=== PATIENT | female | born 1970 | race American Indian/Alaskan Native ===

== ENCOUNTER 2019-04-06 18:41 | Inpatient (IN) | payer BC ==
[2019-04-06] MEDS ORDERED: NACL 0.9% 1000 ML 1,000 ML IV ONE (19:36)
--- NOTE | 2019-04-06 19:37 | Emergency Department Report ---
ED Altered Mental Status HPI - General Stated Complaint: CONFUSION Time Seen by Provider: 04/06/19 19:33 Source: patient, EMS Mode of arrival: Stretcher Limitations: Altered Mental Status - History of Present Illness Initial Comments: Patient is a 48-year-old female presents to emergency room for altered mental status and confusion. Patient is a note 3 but is hyperverbal and tangential. Patient states she fell and hit her head today. Report received from EMS and facility and report states that the patient has been confused for 5 days and is worsening. Patient fell hit her head has not been evaluated for this fall yet. Patient denies any symptoms or confusion. With every question the patient is tangential - Related Data Allergies Allergy/AdvReac Type Severity Reaction Status Date / Time acetaminophen [From Percocet] Allergy Unknown Verified 04/06/19 19:51 oxycodone [From Percocet] Allergy Unknown Verified 04/06/19 19:51 ED Review of Systems ROS: Stated complaint: CONFUSION Other details as noted in HPI Constitutional: denies: chills, fever Eyes: denies: eye pain, eye discharge, vision change ENT: denies: ear pain, throat pain Respiratory: denies: cough, shortness of breath, wheezing Cardiovascular: denies: chest pain, palpitations Endocrine: no symptoms reported Gastrointestinal: denies: abdominal pain, nausea, diarrhea Genitourinary: denies: urgency, dysuria, discharge Musculoskeletal: denies: back pain, joint swelling, arthralgia Skin: denies: rash, lesions Neurological: denies: headache, weakness, paresthesias Psychiatric: denies: anxiety, depression Hematological/Lymphatic: denies: easy bleeding, easy bruising ED Past Medical Hx - Past Medical History Previous Medical History?: Yes Hx Hypertension: Yes Hx Congestive Heart Failure: Yes Hx Renal Disease: Yes Additional medical history: Both palsy, pancytopenia, lupus, A. fib - Surgical History Past Surgical History?: No - Family History Family history: no significant - Social History Smoking Status: Never Smoker Substance Use Type: None ED Physical Exam - General Limitations: Altered Mental Status General appearance: alert, in no apparent distress - Head Head exam: Present: atraumatic, normocephalic - Eye Eye exam: Present: normal appearance - ENT ENT exam: Present: mucous membranes moist - Neck Neck exam: Present: normal inspection - Respiratory Respiratory exam: Present: normal lung sounds bilaterally. Absent: respiratory distress - Cardiovascular Cardiovascular Exam: Present: regular rate, normal rhythm. Absent: systolic m urmur, diastolic murmur, rubs, gallop - GI/Abdominal GI/Abdominal exam: Present: soft, normal bowel sounds - Extremities Exam Extremities exam: Present: normal inspection - Back Exam Back exam: Present: normal inspection - Neurological Exam Neurological exam: Present: alert, oriented X3 - Expanded Psychiatric Exam Expanded Focused psych exam: Present: internal stimuli, delusional, restlessness, flight of ideas, loose associations - Skin Skin exam: Present: warm, dry, intact, normal color. Absent: rash - Assessment Assessment Interval: Baseline - Level of Consciousness 1a. Level of Consciousness: alert/keenly responsive - LOC Questions 1b. LOC Questions: answers both correctly - LOC Command 1c. LOC Commands: performs tasks correctly - Best Gaze 2. Best Gaze: normal - Visual 3. Visual: no visual loss - Facial Palsy 4. Facial Palsy: normal symmetrical movement - Motor Arm 5a. Motor Arm Left: no drift 5b. Motor Arm Right: no drift - Motor Leg 6a. Motor Leg Left: no drift 6b. Motor Leg Right: no drift - Limb Ataxia 7. Limb Ataxia: absent - Sensory 8. Sensory: normal - Best Language 9. Best Language: no aphasia - Dysarthria 10. Dysarthria: normal - Extinction and Inattention 11. Extinction/Inattention: no abnormality - Scoring Total Score: 0 Stroke Severity: No Stroke Symptoms ED Course Vital Signs 04/06/19 04/06/19 04/06/19 19:28 19:35 20:00 Temperature 98.9 F Pulse Rate 83 88 Respiratory 14 19 Rate Blood Pressure 182/89 182/89 O2 Sat by Pulse 100 100 100 Oximetry 04/06/19 04/06/19 21:18 21:38 Temperature Pulse Rate 81 Respiratory 15 16 Rate Blood Pressure 177/87 O2 Sat by Pulse 100 100 Oximetry - Reevaluation(s) Reevaluation #1: Discussed all results with patient. Patient is placed on a 1013 for acute psychosis. Patient is medically cleared but will remain in the ER on a 1013 until cleared by psychiatry. Patient will be seen by mental health and psychiatry.. Patient agrees to plan of care. Family is at bedside and states the patient has not been to bed for 2 days due to her constantly talking and nonstop stories. 04/06/19 23:56 - Lab Data Result diagrams: 04/06/19 20:05 04/06/19 20:05 Lab Results 04/06/19 04/06/19 04/06/19 Range/Units 20:04 20:05 20:05 WBC 5.3 (4.5-11.0) K/mm3 RBC 3.05 L (3.65-5.03) M/mm3 Hgb 9.8 L (10.1-14.3) gm/dl Hct 31.6 (30.3-42.9) % MCV 104 H (79-97) fl MCH 32 (28-32) pg MCHC 31 (30-34) % RDW 24.7 H (13.2-15.2) % Plt Count 300 (140-440) K/mm3 Lymph % (Auto) 5.7 L (13.4-35.0) % [place]rie % (Auto) 3.4 (0.0-7.3) % Eos % (Auto) 0.0 (0.0-4.3) % Baso % (Auto) 0.9 (0.0-1.8) % Lymph # 0.3 L (1.2-5.4) K/mm3 [place]rie # 0.2 (0.0-0.8) K/mm3 Eos # 0.0 (0.0-0.4) K/mm3 Baso # 0.0 (0.0-0.1) K/mm3 Seg Neutrophils % 90.0 H (40.0-70.0) % Seg Neutrophils # 4.7 (1.8-7.7) K/mm3 Sodium 141 (137-145) mmol/L Potassium 4.2 (3.6-5.0) mmol/L Chloride 97.9 L (98-107) mmol/L Carbon Dioxide 29 (22-30) mmol/L Anion Gap 18 mmol/L BUN 13 (7-17) mg/dL Creatinine 0.8 (0.7-1.2) mg/dL Estimated GFR > 60 ml/min BUN/Creatinine Ratio 16 % Glucose 161 H (65-100) mg/dL Lactic Acid (0.7-2.0) mmol/L Calcium 9.2 (8.4-10.2) mg/dL Total Bilirubin 0.20 (0.1-1.2) mg/dL AST 22 (5-40) units/L ALT 28 (7-56) units/L Alkaline Phosphatase 106 (35-129) units/L Ammonia (25-60) umol/L Total Creatine Kinase 19 L (30-135) units/L Troponin T < 0.010 (0.00-0.029) ng/mL Total Protein 7.0 (6.3-8.2) g/dL Albumin 3.6 L (3.9-5) g/dL Albumin/Globulin Ratio 1.1 % Urine Color (Yellow) Urine Turbidity (Clear) Urine pH (5.0-7.0) Ur Specific [place] (1.003-1.030) Urine Protein (Negative) mg/dL Urine Glucose (UA) (Negative) mg/dL Urine Ketones (Negative) mg/dL Urine Blood (Negative) Urine Nitrite (Negative) Urine Bilirubin (Negative) Urine Urobilinogen (<2.0) mg/dL Ur Leukocyte Esterase (Negative) Urine WBC (Auto) (0.0-6.0) /HPF Urine RBC (Auto) (0.0-6.0) /HPF U Epithel Cells (Auto) (0-13.0) /HPF Hyaline Casts /LPF Salicylates < 0.3 L (2.8-20.0) mg/dL Urine Opiates Screen Urine Methadone Screen Acetaminophen (10.0-30.0) ug/mL Ur Barbiturates Screen Ur Phencyclidine Scrn Ur Amphetamines Screen U Benzodiazepines Scrn Urine Cocaine Screen U Marijuana (THC) Screen Drugs of Abuse Note Plasma/Serum Alcohol (0-0.07) % 04/06/19 04/06/19 04/06/19 Range/Units 20:05 20:05 20:05 WBC (4.5-11.0) K/mm3 RBC (3.65-5.03) M/mm3 Hgb (10.1-14.3) gm/dl Hct (30.3-42.9) % MCV (79-97) fl MCH (28-32) pg MCHC (30-34) % RDW (13.2-15.2) % Plt Count (140-440) K/mm3 Lymph % (Auto) (13.4-35.0) % [place]uthrie % (Auto) (0.0-7.3) % Eos % (Auto) (0.0-4.3) % Baso % (Auto) (0.0-1.8) % Lymph # (1.2-5.4) K/mm3 [place]rie # (0.0-0.8) K/mm3 Eos # (0.0-0.4) K/mm3 Baso # (0.0-0.1) K/mm3 Seg Neutrophils % (40.0-70.0) % Seg Neutrophils # (1.8-7.7) K/mm3 Sodium (137-145) mmol/L Potassium (3.6-5.0) mmol/L Chloride (98-107) mmol/L Carbon Dioxide (22-30) mmol/L Anion Gap mmol/L BUN (7-17) mg/dL Creatinine (0.7-1.2) mg/dL Estimated GFR ml/min BUN/Creatinine Ratio % Glucose (65-100) mg/dL Lactic Acid 2.80 H* (0.7-2.0) mmol/L Calcium (8.4-10.2) mg/dL Total Bilirubin (0.1-1.2) mg/dL AST (5-40) units/L ALT (7-56) units/L Alkaline Phosphatase (35-129) units/L Ammonia 29.0 (25-60) umol/L Total Creatine Kinase (30-135) units/L Troponin T (0.00-0.029) ng/mL Total Protein (6.3-8.2) g/dL Albumin (3.9-5) g/dL Albumin/Globulin Ratio % Urine Color (Yellow) Urine Turbidity (Clear) Urine pH (5.0-7.0) Ur Specific [place] (1.003-1.030) Urine Protein (Negative) mg/dL Urine Glucose (UA) (Negative) mg/dL Urine Ketones (Negative) mg/dL Urine Blood (Negative) Urine Nitrite (Negative) Urine Bilirubin (Negative) Urine Urobilinogen (<2.0) mg/dL Ur Leukocyte Esterase (Negative) Urine WBC (Auto) (0.0-6.0) /HPF Urine RBC (Auto) (0.0-6.0) /HPF U Epithel Cells (Auto) (0-13.0) /HPF Hyaline Casts /LPF Salicylates (2.8-20.0) mg/dL Urine Opiates Screen Urine Methadone Screen Acetaminophen < 5.0 L (10.0-30.0) ug/mL Ur Barbiturates Screen Ur Phencyclidine Scrn Ur Amphetamines Screen U Benzodiazepines Scrn Urine Cocaine Screen U Marijuana (THC) Screen Drugs of Abuse Note Plasma/Serum Alcohol (0-0.07) % 04/06/19 04/06/19 04/06/19 Range/Units 20:05 22:40 22:40 WBC (4.5-11.0) K/mm3 RBC (3.65-5.03) M/mm3 Hgb (10.1-14.3) gm/dl Hct (30.3-42.9) % MCV (79-97) fl MCH (28-32) pg MCHC (30-34) % RDW (13.2-15.2) % Plt Count (140-440) K/mm3 Lymph % (Auto) (13.4-35.0) % [place]uthrie % (Auto) (0.0-7.3) % Eos % (Auto) (0.0-4.3) % Baso % (Auto) (0.0-1.8) % Lymph # (1.2-5.4) K/mm3 [place] # (0.0-0.8) K/mm3 Eos # (0.0-0.4) K/mm3 Baso # (0.0-0.1) K/mm3 Seg Neutrophils % (40.0-70.0) % Seg Neutrophils # (1.8-7.7) K/mm3 Sodium (137-145) mmol/L Potassium (3.6-5.0) mmol/L Chloride (98-107) mmol/L Carbon Dioxide (22-30) mmol/L Anion Gap mmol/L BUN (7-17) mg/dL Creatinine (0.7-1.2) mg/dL Estimated GFR ml/min BUN/Creatinine Ratio % Glucose (65-100) mg/dL Lactic Acid (0.7-2.0) mmol/L Calcium (8.4-10.2) mg/dL Total Bilirubin (0.1-1.2) mg/dL AST (5-40) units/L ALT (7-56) units/L Alkaline Phosphatase (35-129) units/L Ammonia (25-60) umol/L Total Creatine Kinase (30-135) units/L Troponin T (0.00-0.029) ng/mL Total Protein (6.3-8.2) g/dL Albumin (3.9-5) g/dL Albumin/Globulin Ratio % Urine Color Yellow (Yellow) Urine Turbidity Clear (Clear) Urine pH 8.0 H (5.0-7.0) Ur Specific [place] 1.011 (1.003-1.030) Urine Protein <15 mg/dl (Negative) mg/dL Urine Glucose (UA) 50 (Negative) mg/dL Urine Ketones Neg (Negative) mg/dL Urine Blood Neg (Negative) Urine Nitrite Neg (Negative) Urine Bilirubin Neg (Negative) Urine Urobilinogen < 2.0 (<2.0) mg/dL Ur Leukocyte Esterase Neg (Negative) Urine WBC (Auto) 1.0 (0.0-6.0) /HPF Urine RBC (Auto) 2.0 (0.0-6.0) /HPF U Epithel Cells (Auto) < 1.0 (0-13.0) /HPF Hyaline Casts 1 /LPF Salicylates (2.8-20.0) mg/dL Urine Opiates Screen Presumptive negative Urine Methadone Screen Presumptive negative Acetaminophen (10.0-30.0) ug/mL Ur Barbiturates Screen Presumptive negative Ur Phencyclidine Scrn Presumptive negative Ur Amphetamines Screen Presumptive negative U Benzodiazepines Scrn Presumptive negative Urine Cocaine Screen Presumptive negative U Marijuana (THC) Screen Presumptive negative Drugs of Abuse Note Disclamer Plasma/Serum Alcohol < 0.01 (0-0.07) % 04/06/19 Range/Units 22:40 WBC (4.5-11.0) K/mm3 RBC (3.65-5.03) M/mm3 Hgb (10.1-14.3) gm/dl Hct (30.3-42.9) % MCV (79-97) fl MCH (28-32) pg MCHC (30-34) % RDW (13.2-15.2) % Plt Count (140-440) K/mm3 Lymph % (Auto) (13.4-35.0) % [place]rie % (Auto) (0.0-7.3) % Eos % (Auto) (0.0-4.3) % Baso % (Auto) (0.0-1.8) % Lymph # (1.2-5.4) K/mm3 [place]rie # (0.0-0.8) K/mm3 Eos # (0.0-0.4) K/mm3 Baso # (0.0-0.1) K/mm3 Seg Neutrophils % (40.0-70.0) % Seg Neutrophils # (1.8-7.7) K/mm3 Sodium (137-145) mmol/L Potassium (3.6-5.0) mmol/L Chloride (98-107) mmol/L Carbon Dioxide (22-30) mmol/L Anion Gap mmol/L BUN (7-17) mg/dL Creatinine (0.7-1.2) mg/dL Estimated GFR ml/min BUN/Creatinine Ratio % Glucose (65-100) mg/dL Lactic Acid 1.90 (0.7-2.0) mmol/L Calcium (8.4-10.2) mg/dL Total Bilirubin (0.1-1.2) mg/dL AST (5-40) units/L ALT (7-56) units/L Alkaline Phosphatase (35-129) units/L Ammonia (25-60) umol/L Total Creatine Kinase (30-135) units/L Troponin T (0.00-0.029) ng/mL Total Protein (6.3-8.2) g/dL Albumin (3.9-5) g/dL Albumin/Globulin Ratio % Urine Color (Yellow) Urine Turbidity (Clear) Urine pH (5.0-7.0) Ur Specific [place] (1.003-1.030) Urine Protein (Negative) mg/dL Urine Glucose (UA) (Negative) mg/dL Urine Ketones (Negative) mg/dL Urine Blood (Negative) Urine Nitrite (Negative) Urine Bilirubin (Negative) Urine Urobilinogen (<2.0) mg/dL Ur Leukocyte Esterase (Negative) Urine WBC (Auto) (0.0-6.0) /HPF Urine RBC (Auto) (0.0-6.0) /HPF U Epithel Cells (Auto) (0-13.0) /HPF Hyaline Casts /LPF Salicylates (2.8-20.0) mg/dL Urine Opiates Screen Urine Methadone Screen Acetaminophen (10.0-30.0) ug/mL Ur Barbiturates Screen Ur Phencyclidine Scrn Ur Amphetamines Screen U Benzodiazepines Scrn Urine Cocaine Screen U Marijuana (THC) Screen Drugs of Abuse Note Plasma/Serum Alcohol (0-0.07) % - EKG Data -: EKG Interpreted by Me EKG shows normal: sinus rhythm, axis, intervals, QRS complexes, ST-T waves Rate: normal Interpretation: LV[facility] - Radiology Data Radiology results: report reviewed PROCEDURE: CT HEAD/BRAIN WO CON TECHNIQUE: Computerized tomography of the head was performed without contrast material. CT DOSE LENGTH PRODUCT: 920.5 mGycm HISTORY: Altered Mental Status COMPARISONS: None . FINDINGS: Brain: There is no evidence of intracranial hemorrhage. No parenchymal hemorrhage is seen. No mass lesions or mass effect is identified. No abnormal extra-axial fluid collections or masses are seen. There is a small well-defined area of decreased density in the right side of the maureen consistent with a mature lacunar infarct. There is mild decreased density in the periventricular white matter without mass effect. This is fairly symmetric suggesting gliosis probably on the basis of microvascular disease or white matter changes of aging. Nonspecific mineralization of the basal ganglia are also visualized. Ventricles: The ventricles, sulcal pattern and fissures are minimally prominent consistent with minimal atrophy. Bone Windows: No evidence of fracture. Paranasal sinuses: Clear. Mastoid air cells: Clear. IMPRESSION: Old lacunar infarct visualized right side of the maureen. There also appears to be minimal atrophy and gliosis. No other abnormalities are identified. If further evaluation is clinically indicated MRI of the brain may be helpful. - Medical Decision Making Patient is a 48-year-old female presents emergency room with complete confusion and altered mental status. Patient's clinical findings with acute psychosis. Patient is medically clear. Patient's labs are unremarkable. Patient's CT scan as no acute findings. Patient placed on 1013 and mental health will see the patient. - Differential Diagnosis acute psychosis. UTI. Altered mental status. Confusion Critical care attestation.: If time is entered above; I have spent that time in minutes in the direct care of this critically ill patient, excluding procedure time. ED Disposition Clinical Impression: Acute psychosis, Confusion Altered mental status Qualifiers: Altered mental status type: unspecified Qualified Code(s): R41.82 - Altered mental status, unspecified Disposition: DC/TX-65 PSY HOSP/PSY UNIT Is pt being admited?: No Does the pt Need Aspirin: No Condition: Stable Additional Instructions: Patient is medically cleared and will remain on a 1013. Referrals: RYAN CARSON MD [Primary Care Provider] - 3-5 Days Time of Disposition: 00:00
[2019-04-06 21:24] LABS: Basophils % (Auto) 0.9 % (0.0-1.8); Hematocrit 31.6 % (30.3-42.9); Hemoglobin 9.8 gm/dl (10.1-14.3); Lymphocytes # (Auto) 0.3 K/mm3 (1.2-5.4); Lymphocytes % (Auto) 5.7 % (13.4-35.0); Mean Corpuscular HGB Conc 31 % (30-34); Mean Corpuscular Volume 104 fl (79-97); Monocytes # (Auto) 0.2 K/mm3 (0.0-0.8); Monocytes % (Auto) 3.4 % (0.0-7.3); Platelet Count 300 K/mm3 (140-440); Red Blood Count 3.05 M/mm3 (3.65-5.03); Red Cell Distribution Width 24.7 % (13.2-15.2)
--- NOTE | 2019-04-06 21:31 | Cat Scan Report ---
PROCEDURE: CT HEAD/BRAIN WO CON TECHNIQUE: Computerized tomography of the head was performed without contrast material. CT DOSE LENGTH PRODUCT: 920.5 mGycm HISTORY: Altered Mental Status COMPARISONS: None . FINDINGS: Brain: There is no evidence of intracranial hemorrhage. No parenchymal hemorrhage is seen. No mass lesions or mass effect is identified. No abnormal extra-axial fluid collections or masses are seen. There is a small well-defined area of decreased density in the right side of the maureen consistent with a mature lacunar infarct. There is mild decreased density in the periventricular white matter without mass effect. This is fair ly symmetric suggesting gliosis probably on the basis of microvascular disease or white matter change s of aging. Nonspecific mineralization of the basal ganglia are also visualized. Ventricles: The ventricles, sulcal pattern and fissures are minimally prominent consistent with mini mal atrophy. Bone Windows: No evidence of fracture. Paranasal sinuses: Clear. Mastoid air cells: Clear. IMPRESSION: Old lacunar infarct visualized right side of the maureen. There also appears to be minimal atrophy and g liosis. No other abnormalities are identified. If further evaluation is clinically indicated MRI of the brain may be helpful. This document is electronically signed by Oscar Philip MD., April 06 2019 09:29:07 PM ET
[2019-04-06 21:55] LABS: Alanine Aminotransferase 28 units/L (7-56); Albumin 3.6 g/dL (3.9-5); BUN/Creatinine Ratio 16; Blood Urea Nitrogen 13 mg/dL (7-17); Calcium 9.2 mg/dL (8.4-10.2); Hemolysis Index 7
[2019-04-06 22:56] LABS: Bilirubin,Urine NEG (Negative); Blood,Urine NEG (Negative); Color,Urine Yellow (Yellow); Hyaline Casts,Urine 1 /LPF; Protein,Urine <15 mg/dL mg/dL (Negative); Urobilinogen,Urine < 2.0 mg/dL (<2.0)
[2019-04-06 23:06] LABS: Amphetamine Screen,Urine PRESUMPTIVE NEGATIVE; Benzodiazepines Screen,Urine PRESUMPTIVE NEGATIVE; Cannabinoid Screen,Urine PRESUMPTIVE NEGATIVE; Cocaine Screen,Urine PRESUMPTIVE NEGATIVE; Methadone Screen,Urine PRESUMPTIVE NEGATIVE; Opiate Screen,Urine PRESUMPTIVE NEGATIVE
[2019-04-07] MEDS ORDERED: NACL 0.9% 500 ML 500 ML IV ONE (02:26)
--- NOTE | 2019-04-07 14:00 | Consultation ---
History of Present Illness - Reason for Consult Consult date: 04/07/19 Reason for consult: Mental Health Evaluation Requesting physician: MARIE VARGAS III - Chief Complaint Chief complaint: "I don't need to be here" - History of Present Psychiatric Illness 48 y.o. AA female presented to the ER for bizarre behavior. Today the patient was somewhat preoccupied during the assessment. She wasn't able to state why she was brought to the ER when asked. She was tangent with loose associations throughout the interview. She also appears paranoid, but was able to state that she haven't slept in 2 days. Overall, the patient is not a good historian at this time. Per collateral information from her Mr Duglas Fraga, he stated that his does not have mental health hx. He stated that his experienced bacterial meningitis Sep 2018, had a Lupus flare up recently (March 2019), and was hospitalized for 20 days (Lupus). Recently the patient was in rehab services and experienced a fall and hit her head per the patient's . He stated that his has been "declining" ever since she left rehab services. No gestures of SI/HI's. Medications and Allergies Allergies Allergy/AdvReac Type Severity Reaction Status Date / Time acetaminophen [From Percocet] Allergy Unknown Verified 04/06/19 19:51 milk Allergy Unknown Verified 04/07/19 06:01 oxycodone [From Percocet] Allergy Unknown Verified 04/06/19 19:51 Home Medications Medication Instructions Recorded Confirmed Last Taken Type Albuterol Sulfate [Proair 90 mcg IH QID PRN 04/07/19 04/07/19 Unknown History Respiclick] Amlodipine Besylate [Norvasc] 5 mg PO DAILY 04/07/19 04/07/19 Unknown History Ca/D3/Mag Ox/Zinc/Customs Examiner/Thony/Bor 1 each PO BID 04/07/19 04/07/19 Unknown History [Calcium 600+D3 Plus Caplet] Folic Acid [Folvite] 1 mg PO QDAY 04/07/19 04/07/19 Unknown History Gabapentin [Neurontin] 300 mg PO Q8HR 04/07/19 04/07/19 Unknown History Melatonin [Melatonin 3MG TAB] 3 mg PO QHS 04/07/19 04/07/19 Unknown History Metoprolol [Lopressor] 100 mg PO BID 04/07/19 04/07/19 Unknown History Thiamine [Vitamin B-1] 100 mg PO QDAY 04/07/19 04/07/19 Unknown History cloNIDine-TTS PATCH [Catapres-Tts 1 patch TD Q7D 04/07/19 04/07/19 03/26/19 History 0.2mg Patch] 0.2 mg Past psychiatric history - Past Medical History Past Medical History: other (Lopus) Past Surgical History: No surgical history - past Psychiatric treatment and history psychiatric treatment history: denies a psy hx and fam psy hx. - Social History Social history: lives with family Mental Status Exam - Vital signs Last Vital Signs Temp 98.8 F 04/07/19 07:44 Pulse 95 H 04/07/19 07:44 Resp 18 04/07/19 07:44 BP 176/94 04/07/19 07:44 Pulse Ox 96 04/07/19 07:44 - Exam Narrative exam: MSE: Appearance: in hospital attire Behavior: regular eye contact Speech:hyper verbal Mood: somewhat preoccupied Affect: congruent to mood Thought Process: tangential , loose associations Thought Content: no gestures of SI/HI's, paranoid Motor Activity: sitting up in the bed Cognition: A/O x 3 Insight: poor Judgment: variable Results Result Diagrams: 04/06/19 20:05 04/06/19 20:05 Abnormal lab results 04/06/19 04/06/19 04/06/19 Range/Units 20:04 20:05 20:05 RBC 3.05 L (3.65-5.03) M/mm3 Hgb 9.8 L (10.1-14.3) gm/dl MCV 104 H (79-97) fl RDW 24.7 H (13.2-15.2) % Lymph % (Auto) 5.7 L (13.4-35.0) % Lymph # 0.3 L (1.2-5.4) K/mm3 Seg Neutrophils % 90.0 H (40.0-70.0) % Chloride 97.9 L (98-107) mmol/L Glucose 161 H (65-100) mg/dL Lactic Acid (0.7-2.0) mmol/L Total Creatine Kinase 19 L (30-135) units/L Albumin 3.6 L (3.9-5) g/dL Urine pH (5.0-7.0) Salicylates < 0.3 L (2.8-20.0) mg/dL Acetaminophen (10.0-30.0) ug/mL 04/06/19 04/06/19 04/06/19 Range/Units 20:05 20:05 22:40 RBC (3.65-5.03) M/mm3 Hgb (10.1-14.3) gm/dl MCV (79-97) fl RDW (13.2-15.2) % Lymph % (Auto) (13.4-35.0) % Lymph # (1.2-5.4) K/mm3 Seg Neutrophils % (40.0-70.0) % Chloride (98-107) mmol/L Glucose (65-100) mg/dL Lactic Acid 2.80 H* (0.7-2.0) mmol/L Total Creatine Kinase (30-135) units/L Albumin (3.9-5) g/dL Urine pH 8.0 H (5.0-7.0) Salicylates (2.8-20.0) mg/dL Acetaminophen < 5.0 L (10.0-30.0) ug/mL All other labs normal. 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 Today the patient was somewhat preoccupied during the assessment. UDS is negative. 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 There also appears to be minimal atrophy and gliosis per CT of the head. The patient fell recently per collateral information. Recommendation/Plan: Continue 1013 and start Melatonin 5 mg PO HS for sleep. Dispo: Patient will be referred to psy/med facilities. Staffed with Dr Kylie Carson.
[2019-04-07] MEDS ORDERED: NON-FORMULARY (Albuterol Sulfate [Proair Respiclick] 90 MCG) IH PRN (21:36)
[2019-04-07] MEDS ORDERED: LOPRESSOR PO SCH (22:00)
[2019-04-07] MEDS ORDERED: PROVENTIL IH PRN (23:41)
[2019-04-07] MEDS: NORVASC PO SCH (23:50)
[2019-04-07] MEDS: MELATONIN PO SCH (23:50)
[2019-04-07] MEDS: NEURONTIN PO SCH (23:50)
[2019-04-07] MEDS: OYSCO D 500 MG-200 UNIT PO SCH (23:50)
[2019-04-07] MEDS: VITAMIN B-1 PO SCH (23:50)
[2019-04-07] MEDS: FOLVITE PO SCH (23:50)
[2019-04-08] MEDS: NEURONTIN PO SCH ×3 (06:05→22:00)
--- NOTE | 2019-04-08 09:03 | Progress Note ---
Subjective - Reason for Consult Consult date: 04/08/19 Reason for consult: Psychiatry Follow-up - Chief Complaint Chief complaint: "Something is going on"\\ 48 y.o. AA female presented to the ER for bizarre behavior. Today the patient is still preoccupied and tangent during the assessment. She still appears to be paranoid throughout the interview. She had to be redirected several times to keep her on topic. She stated that she "slept a little last night. She denies SI/HI's and AVH's. 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 Today the patient was somewhat preoccupied during the assessment. UDS is negative. 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 There also appears to be minimal atrophy and gliosis per CT of the head. The patient fell recently per collateral information. Recommendation/Plan: Continue 1013 and Melatonin 5 mg PO HS for sleep. Dispo: The patient was referred to med/psy facilities. Staffed with Dr Kylie Carson.
[2019-04-08] MEDS: VITAMIN B-1 PO SCH (10:00)
[2019-04-08] MEDS: OYSCO D 500 MG-200 UNIT PO SCH ×2 (10:00→22:00)
[2019-04-08] MEDS: FOLVITE PO SCH (10:00)
[2019-04-08] MEDS: LOPRESSOR PO SCH ×2 (11:39→22:00)
[2019-04-08] MEDS: NORVASC PO SCH (11:43)
[2019-04-08] MEDS ORDERED: ZOFRAN IV PRN (17:09)
[2019-04-08] MEDS ORDERED: SODIUM CHLORIDE FLUSH SYRINGE 10 ML IV PRN (17:09)
[2019-04-08] MEDS ORDERED: TYLENOL PO PRN (17:09)
[2019-04-08] MEDS ORDERED: PROVENTIL IH PRN (17:09)
--- NOTE | 2019-04-08 17:21 | History and Physical Report ---
History of Present Illness Chief complaint: confused History of present illness: 48 YO Female with HTN, Asthma, SLE presents to ED for evaluation. Pt was seen and evaluated for confusion and placed on 1013 for Psychosis and Mental Health consulted. Pt found to have confusion with fever to 102.5 today. Hospital medicine team notified. Pt seen and evaluated in ED and found to have symptoms consistent with Encephalopathy as well as SIRS. Pt initiated on empiric IV antibiotic therapy and IVF resuscitation. Pt denies chills, Neck pain, Headache, NVD, Trauma, BRBPR, Productive cough, skin rash, shortness of breath, blurred vision, leg swelling, calf pain, recent foreign travel, recent ill contacts, ingestion of food/water from new or different sources. Pt is pleasant and cooperative with exam and interview. Pt admitted to medical floor. [address] Past History Past Medical History: hyperlipidemia, other (Lupus, Asthma) Past Surgical History: No surgical history, Other (reviewed) Social history: , lives with family Family history: hypertension Medications and Allergies Allergies Allergy/AdvReac Type Severity Reaction Status Date / Time acetaminophen [From Percocet] Allergy Unknown Verified 04/06/19 19:51 milk Allergy Unknown Verified 04/07/19 06:01 oxycodone [From Percocet] Allergy Unknown Verified 04/06/19 19:51 Home Medications Medication Instructions Recorded Confirmed Last Taken Type Albuterol Sulfate [Proair 90 mcg IH QID PRN 04/07/19 04/07/19 Unknown History Respiclick] Amlodipine Besylate [Norvasc] 5 mg PO DAILY 04/07/19 04/07/19 Unknown History Ca/D3/Mag Ox/Zinc/Furniture Sprayer/Thony/Bor 1 each PO BID 04/07/19 04/07/19 Unknown History [Calcium 600+D3 Plus Caplet] Folic Acid [Folvite] 1 mg PO QDAY 04/07/19 04/07/19 Unknown History Gabapentin [Neurontin] 300 mg PO Q8HR 04/07/19 04/07/19 Unknown History Melatonin [Melatonin 3MG TAB] 3 mg PO QHS 04/07/19 04/07/19 Unknown History Metoprolol [Lopressor] 100 mg PO BID 04/07/19 04/07/19 Unknown History Thiamine [Vitamin B-1] 100 mg PO QDAY 04/07/19 04/07/19 Unknown History cloNIDine-TTS PATCH [Catapres-Tts 1 patch TD Q7D 04/07/19 04/07/19 03/26/19 History 0.2mg Patch] 0.2 mg Active Meds: Active Medications Acetaminophen (Tylenol) 650 mg PO Q4H PRN PRN Reason: Pain MILD(1-3)/Fever >100.5/TAVERA Albuterol (Proventil) 2.5 mg IH QIDRT PRN PRN Reason: Shortness Of Breath Albuterol (Proventil) 2.5 mg IH Q4HRT PRN PRN Reason: Shortness Of Breath Amlodipine Besylate (Norvasc) 5 mg PO DAILY [facility] Last Admin: 04/08/19 11:43 Dose: 5 mg Documented by: Calcium/Vitamin D (Oysco D 500 Mg-200 Unit) 1 each PO BID [facility] Last Admin: 04/08/19 10:00 Dose: 1 each Documented by: Folic Acid (Folvite) 1 mg PO QDAY [facility] Last Admin: 04/08/19 10:00 Dose: 1 mg Documented by: Gabapentin (Neurontin) 300 mg PO Q8HR [facility] Last Admin: 04/08/19 14:28 Dose: Not Given Documented by: Hydralazine HCl (Apresoline) 10 mg IV Q6H PRN PRN Reason: SBP > 155 Sodium Chloride (Nacl 0.45% 1000 Ml) 1,000 mls @ 75 mls/hr IV DIRECT [facility] Melatonin (Melatonin) 5 mg PO QHS [facility] Last Admin: 04/07/19 23:50 Dose: 5 mg Documented by: Metoprolol Tartrate (Lopressor) 50 mg PO BID [facility] Last Admin: 04/08/19 11:39 Dose: 50 mg Documented by: Ondansetron HCl (Zofran) 4 mg IV Q8H PRN PRN Reason: Nausea And Vomiting Sodium Chloride (Sodium Chloride Flush Syringe 10 Ml) 10 ml IV BID [facility] Sodium Chloride (Sodium Chloride Flush Syringe 10 Ml) 10 ml IV PRN PRN PRN Reason: LINE FLUSH Thiamine HCl (Vitamin B-1) 100 mg PO QDAY [facility] Last Admin: 04/08/19 10:00 Dose: 100 mg Documented by: Review of Systems Constitutional: no weight loss, no weight gain, no fever, no chills, no chronic pain Ears, nose, mouth and throat: no ear pain, no ear discharge, no tinnitis, no decreased hearing, no nasal congestion, no nasal discharge, no mouth pain, no dysphagia, no sore throat, no swelling in mouth, no swelling in throat, no voice changes, no post-nasal drip, no headache, no neck lump Breasts: no change in shape, no swelling, no mass Cardiovascular: no chest pain, no orthopnea, no palpitations Respiratory: no cough, no cough with sputum, no excessive sputum, no hemoptysis, no shortness of breath Gastrointestinal: no abdominal pain, no nausea, no vomiting, no diarrhea, no constipation Genitourinary Female: no pelvic pain, no flank pain, no menorrhagia, no dysuria, no urinary frequency, no urgency Rectal: no pain, no incontinence, no bleeding Musculoskeletal: no neck stiffness, no neck pain, no shooting arm pain, no arm numbness/tingling, no low back pain, no shooting leg pain, no hot joints, no morning stiffness, no muscle weakness, no muscle cramps, no myalgias, no atrophy Integumentary: no rash, no pruritis, no redness, no sores, no wounds Neurological: no paralysis, no weakness, no parathesias, no numbness, no tingling, no seizures Psychiatric: paranoia, mood swings, no anxiety, no memory loss, no change in sleep habits Endocrine: no cold intolerance, no heat intolerance, no polyphagia, no excessive thirst, no polydipsia Hematologic/Lymphatic: no easy bruising, no easy bleeding, no lymphadenopathy, no lymphedema Allergic/Immunologic: no urticaria, no allergic rhinitis, no wheezing, no persistent infections Exam - Constitutional Vitals: Temp Pulse Resp BP Pulse Ox 102.4 F H 113 H 18 167/83 100 04/08/19 10:43 04/08/19 11:43 04/08/19 10:43 04/08/19 11:43 04/08/19 10:43 General appearance: Present: mild distress - EENT Eyes: Present: PERRL ENT: hearing intact, clear oral mucosa - Neck Neck: Present: supple, normal ROM - Respiratory Respiratory effort: normal Respiratory: bilateral: CTA - Cardiovascular Heart Sounds: Present: S1 & S2. Absent: rub, click - Extremities Extremities: pulses symmetrical, No edema Peripheral Pulses: within normal limits - Abdominal General gastrointestinal: Present: soft, non-tender, non-distended, normal bowel sounds Female genitourinary: Present: normal - Integumentary Integumentary: Present: clear, warm, dry - Musculoskeletal Musculoskeletal: gait normal, strength equal bilaterally - Psychiatric Psychiatric: appropriate mood/affect, intact judgment & insight - Neurologic Neurologic: CNII-XII intact, moves all extremities Results - Labs CBC & Chem 7: 04/08/19 17:46 04/06/19 20:05 Labs: Abnormal lab results 04/08/19 Range/Units 07:33 Valproic Acid 2.8 L (50-100) ug/mL Assessment and Plan - Patient Problems (1) SIRS (systemic inflammatory response syndrome) Current Visit: Yes Status: Acute Plan to address problem: CBC, CMP, Urinalysis, chest x ray, empiric antibiotic therapy, lactic acid level, supportive care, IVF resuscitation therapy. (2) Encephalopathy Current Visit: Yes Status: Acute Plan to address problem: CT Head,neuro check, IVF resuscitation therapy, thyroid panel, neuro checks. (3) SLE (systemic lupus erythematosus) Current Visit: Yes Status: Acute Plan to address problem: AND, Anti DS DNA Ab, ESR, CRP, (4) Acute psychosis Current Visit: Yes Status: Acute Plan to address problem: mental health consulted, contniue current therapy, 1:1 sitter (5) HTN (hypertension) Current Visit: Yes Status: Acute Qualifiers: Hypertension type: essential hypertension Qualified Code(s): I10 - Essential (primary) hypertension Plan to address problem: monitor bp q shift, supportive care, continue medical management. (6) Asthma Current Visit: Yes Status: Acute Qualifiers: Asthma severity: mild Asthma persistence: intermittent Plan to address problem: supplemental oxygen, nebulizer therapy prn,:POA (7) DVT prophylaxis Current Visit: Yes Status: Acute Plan to address problem: SCD to BLE while in bed, prophylactic lovenox
[2019-04-08] MEDS ORDERED: NACL 0.45% 1000 ML 1,000 ML IV SCH (18:00)
--- NOTE | 2019-04-08 18:00 | XRay Report ---
PROCEDURE: XR CHEST 1V AP TECHNIQUE: Chest radiograph single view. HISTORY: fever,cough COMPARISONS: None . FINDINGS: Heart: Normal. Mediastinum/Vessels: Normal. Lungs/Pleural space: Normal. Bony thorax: No acute osseous abnormality. Life support devices: None. IMPRESSION: No acute cardiopulmonary abnormality. This document is electronically signed by Shashank Vega MD., April 08 2019 05:58:43 PM ET
[2019-04-08 18:13] LABS: Hematocrit 31.2 % (30.3-42.9); Hemoglobin 9.7 gm/dl (10.1-14.3); Mean Corpuscular HGB Conc 31 % (30-34); Mean Corpuscular Volume 103 fl (79-97); Platelet Count 291 K/mm3 (140-440); Red Blood Count 3.04 M/mm3 (3.65-5.03)
[2019-04-08 18:38] LABS: Red Cell Distribution Width 23.2 % (13.2-15.2)
[2019-04-08 18:39] LABS: Erythrocyte Sedimentation Rate 47 mm/Hr (0-20)
[2019-04-08] MEDS: ROCEPHIN/NS 1 GM/50 ML 1 GM/50 ML BAG IV SCH (18:50)
[2019-04-08 19:26] LABS: Anisocytosis 1+; Basophils % (Manual) 0 % (0.0-1.8); Eosinophils % (Manual) 0 % (0.0-4.3); Platelet Estimate Consistent w Auto; Total Cells Counted 100
[2019-04-08 20:08] LABS: Free T4 (Free Thyroxine) 1.2 ng/dL (0.76-1.46)
[2019-04-08] MEDS: MELATONIN PO SCH (22:00)
[2019-04-08] MEDS: SODIUM CHLORIDE FLUSH SYRINGE 10 ML IV SCH (22:00)
[2019-04-09] MEDS: NEURONTIN PO SCH ×3 (06:52→21:54)
--- NOTE | 2019-04-09 09:48 | Progress Note ---
Subjective - Reason for Consult Consult date: 04/09/19 Reason for consult: Psyhciatry Follow-up - Chief Complaint Chief complaint: "You're not my " 48 y.o. AA female presented to the ER for bizarre behavior. Today the patient is still preoccupied and tangent during the assessment. She told me to get out because I wasn't her . Per the sitter, the patient have been hyper verbal and paranoid since the start of her shift. No gestures of SI/HI's. Mental Status Exam - Vital signs Last Vital Signs Temp 98.8 F 04/09/19 05:54 Pulse 104 H 04/09/19 05:54 Resp 16 04/09/19 05:54 BP 172/78 04/09/19 05:54 Pulse Ox 99 04/09/19 05:54 - Exam Narrative exam: MSE: Appearance: in hospital attire Behavior: regular eye contact Speech: still hyper verbal Mood: preoccupied Affect: congruent to mood Thought Process: tangential Thought Content: denies SI/HI's and AVH's, paranoid Motor Activity: sitting up in the bed Cognition: A/O x 3 Insight: poor Judgment: unable to assess Assessment and Plan Impression: 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 Today the patient was somewhat preoccupied during the assessment. UDS is negative. 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 There also appears to be minimal atrophy and gliosis per CT of the head. The patient fell recently per collateral information. Medical: The patient has a hx of Lopus per collateral information from her . Recommendation/Plan: Continue 1013 and Melatonin 5 mg PO HS for sleep. Dispo: Proper dispo will be determined once the patient is medically clear. Staffed with Dr Kylie Carson.
[2019-04-09] MEDS ORDERED: TYLENOL PR PRN (12:00)
[2019-04-09] MEDS: NORVASC PO SCH (12:21)
[2019-04-09] MEDS: FOLVITE PO SCH (12:21)
[2019-04-09] MEDS: LOPRESSOR PO SCH ×2 (12:21→21:54)
[2019-04-09] MEDS: OYSCO D 500 MG-200 UNIT PO SCH ×2 (12:22→21:55)
[2019-04-09] MEDS: SODIUM CHLORIDE FLUSH SYRINGE 10 ML IV SCH ×2 (12:22→21:55)
[2019-04-09] MEDS: VITAMIN B-1 PO SCH (12:23)
--- NOTE | 2019-04-09 17:57 | Progress Note ---
Assessment and Plan Assessment and plan: Acute encephalopathy. 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 Patient was previously hospitalized at [facility] earlier this month. We will attempt to obtain all records from [facility]. We will start Solumedrol 60 mg IV b.i.d. Neurology consultation. Sepsis. Follow-up CBC, CMP, Urinalysis, chest x ray, empiric antibiotic therapy, lactic acid level, supportive care, IVF resuscitation therapy. ID consultation. SLE. F/U AND, Anti DS DNA Ab, ESR, CRP Hypertension. Continue Antihypertensive medications Asthma. Compensating. History Interval history: Long d/w her who reports what sounds like significant recent history of lupus cerebritis. Hospitalist Physical - Constitutional Vitals: Temp Pulse Resp BP Pulse Ox 97.2 F L 117 H 16 169/82 94 04/09/19 16:13 04/09/19 16:24 04/09/19 16:13 04/09/19 16:13 04/09/19 11:35 General appearance: Present: mild distress - EENT Eyes: Present: PERRL, EOM intact ENT: hearing intact, clear oral mucosa, dentition normal - Neck Neck: Present: supple, normal ROM - Respiratory Respiratory effort: normal Respiratory: bilateral: CTA - Cardiovascular Rhythm: regular Heart Sounds: Present: S1 & S2. Absent: gallop, rub - Extremities Extremities: no ischemia, No edema, Full ROM - Abdominal General gastrointestinal: soft, non-tender, non-distended, normal bowel sounds - Integumentary Integumentary: Present: clear, warm, dry - Neurologic Neurologic: CNII-XII intact, moves all extremities, other (confused) Results - Labs CBC & Chem 7: 04/08/19 17:46 04/06/19 20:05 Labs: Laboratory Last Values WBC 3.8 K/mm3 (4.5-11.0) L 04/08/19 17:46 RBC 3.04 M/mm3 (3.65-5.03) L 04/08/19 17:46 Hgb 9.7 gm/dl (10.1-14.3) L 04/08/19 17:46 Hct 31.2 % (30.3-42.9) 04/08/19 17:46 MCV 103 fl (79-97) H 04/08/19 17:46 MCH 32 pg (28-32) 04/08/19 17:46 MCHC 31 % (30-34) 04/08/19 17:46 RDW 23.2 % (13.2-15.2) H 04/08/19 17:46 Plt Count 291 K/mm3 (140-440) 04/08/19 17:46 Lymph % (Auto) 5.7 % (13.4-35.0) L 04/06/19 20:05 Rabun % (Auto) 3.4 % (0.0-7.3) 04/06/19 20:05 Eos % (Auto) 0.0 % (0.0-4.3) 04/06/19 20:05 Baso % (Auto) 0.9 % (0.0-1.8) 04/06/19 20:05 Lymph # 0.3 K/mm3 (1.2-5.4) L 04/06/19 20:05 Rabun # 0.2 K/mm3 (0.0-0.8) 04/06/19 20:05 Eos # 0.0 K/mm3 (0.0-0.4) 04/06/19 20:05 Baso # 0.0 K/mm3 (0.0-0.1) 04/06/19 20:05 Add Manual Diff Complete 04/08/19 17:46 Total Counted 100 04/08/19 17:46 Seg Neutrophils % 90.0 % (40.0-70.0) H 04/06/19 20:05 Seg Neuts % (Manual) 74.0 % (40.0-70.0) H 04/08/19 17:46 0 % 04/08/19 17:46 18.0 % (13.4-35.0) 04/08/19 17:46 Reactive Lymphs % (Man) 0 % 04/08/19 17:46 8.0 % (0.0-7.3) H 04/08/19 17:46 0 % (0.0-4.3) 04/08/19 17:46 0 % (0.0-1.8) 04/08/19 17:46 0 % 04/08/19 17:46 0 % 04/08/19 17:46 0 % 04/08/19 17:46 0 % 04/08/19 17:46 Nucleated RBC % 2.0 % (0.0-0.9) H 04/08/19 17:46 Seg Neutrophils # 4.7 K/mm3 (1.8-7.7) 04/06/19 20:05 Seg Neutrophils # Man 2.8 K/mm3 (1.8-7.7) 04/08/19 17:46 Band Neutrophils # 0.0 K/mm3 04/08/19 17:46 0.7 K/mm3 (1.2-5.4) L 04/08/19 17:46 Abs React Lymphs (Man) 0.0 K/mm3 04/08/19 17:46 0.3 K/mm3 (0.0-0.8) 04/08/19 17:46 0.0 K/mm3 (0.0-0.4) 04/08/19 17:46 0.0 K/mm3 (0.0-0.1) 04/08/19 17:46 0.0 K/mm3 04/08/19 17:46 0.0 K/mm3 04/08/19 17:46 0.0 K/mm3 04/08/19 17:46 Blast Cells # 0.0 K/mm3 04/08/19 17:46 WBC Morphology Not Reportable 04/08/19 17:46 WBC Morphology TNR 04/08/19 17:46 Hypersegmented Neuts Not Reportable 04/08/19 17:46 Hyposegmented Neuts Not Reportable 04/08/19 17:46 Hypogranular Neuts Not Reportable 04/08/19 17:46 Not Reportable 04/08/19 17:46 Not Reportable 04/08/19 17:46 Not Reportable 04/08/19 17:46 Not Reportable 04/08/19 17:46 Not Reportable 04/08/19 17:46 Not Reportable 04/08/19 17:46 Consistent w auto 04/08/19 17:46 Not Reportable 04/08/19 17:46 Plt Clumps, EDTA Not Reportable 04/08/19 17:46 Not Reportable 04/08/19 17:46 Not Reportable 04/08/19 17:46 Not Reportable 04/08/19 17:46 Plt Morphology Comment Not Reportable 04/08/19 17:46 RBC Morphology Not Reportable 04/08/19 17:46 Dimorphic RBCs Not Reportable 04/08/19 17:46 Not Reportable 04/08/19 17:46 Not Reportable 04/08/19 17:46 Not Reportable 04/08/19 17:46 1+ 04/08/19 17:46 Not Reportable 04/08/19 17:46 Not Reportable 04/08/19 17:46 Not Reportable 04/08/19 17:46 Not Reportable 04/08/19 17:46 Not Reportable 04/08/19 17:46 Not Reportable 04/08/19 17:46 Not Reportable 04/08/19 17:46 Not Reportable 04/08/19 17:46 Not Reportable 04/08/19 17:46 Not Reportable 04/08/19 17:46 Not Reportable 04/08/19 17:46 Not Reportable 04/08/19 17:46 Not Reportable 04/08/19 17:46 Not Reportable 04/08/19 17:46 Not Reportable 04/08/19 17:46 Acanthocytes (Spur) Not Reportable 04/08/19 17:46 Rouleaux Not Reportable 04/08/19 17:46 Not Reportable 04/08/19 17:46 Not Reportable 04/08/19 17:46 Not Reportable 04/08/19 17:46 ESR 47 mm/Hr (0-20) 04/08/19 17:46 Not Reportable 04/08/19 17:46 Hem Pathologist Commnt No 04/08/19 17:46 Sodium 141 mmol/L (137-145) 04/06/19 20:05 Potassium 4.2 mmol/L (3.6-5.0) 04/06/19 20:05 Chloride 97.9 mmol/L (98-107) L 04/06/19 20:05 Carbon Dioxide 29 mmol/L (22-30) 04/06/19 20:05 18 mmol/L 04/06/19 20:05 BUN 13 mg/dL (7-17) 04/06/19 20:05 0.8 mg/dL (0.7-1.2) 04/06/19 20:05 Estimated GFR > 60 ml/min 04/06/19 20:05 16 % 04/06/19 20:05 Glucose 161 mg/dL (65-100) H 04/06/19 20:05 Lactic Acid 0.90 mmol/L (0.7-2.0) 04/08/19 21:48 Calcium 9.2 mg/dL (8.4-10.2) 04/06/19 20:05 0.20 mg/dL (0.1-1.2) 04/06/19 20:05 AST 22 units/L (5-40) 04/06/19 20:05 ALT 28 units/L (7-56) 04/06/19 20:05 106 units/L (35-129) 04/06/19 20:05 29.0 umol/L (25-60) 04/06/19 20:05 19 units/L (30-135) L 04/06/19 20:05 < 0.010 ng/mL (0.00-0.029) 04/06/19 20:05 5.10 mg/dL (0.00-1.30) H 04/08/19 17:46 7.0 g/dL (6.3-8.2) 04/06/19 20:05 3.6 g/dL (3.9-5) L 04/06/19 20:05 1.1 % 04/06/19 20:05 TSH 1.680 mlU/mL (0.270-4.200) 04/08/19 17:46 Free T4 1.20 ng/dL (0.76-1.46) 04/08/19 17:46 Yellow (Yellow) 04/06/19 22:40 Clear (Clear) 04/06/19 22:40 8.0 (5.0-7.0) H 04/06/19 22:40 Ur Specific [place] 1.011 (1.003-1.030) 04/06/19 22:40 <15 mg/dl mg/dL (Negative) 04/06/19 22:40 50 mg/dL (Negative) 04/06/19 22:40 Neg mg/dL (Negative) 04/06/19 22:40 Neg (Negative) 04/06/19 22:40 Neg (Negative) 04/06/19 22:40 Neg (Negative) 04/06/19 22:40 < 2.0 mg/dL (<2.0) 04/06/19 22:40 Ur Leukocyte Esterase Neg (Negative) 04/06/19 22:40 1.0 /HPF (0.0-6.0) 04/06/19 22:40 2.0 /HPF (0.0-6.0) 04/06/19 22:40 U Epithel Cells (Auto) < 1.0 /HPF (0-13.0) 04/06/19 22:40 Hyaline Casts 1 /LPF 04/06/19 22:40 Salicylates < 0.3 mg/dL (2.8-20.0) L 04/06/19 20:04 Presumptive negative 04/06/19 22:40 Presumptive negative 04/06/19 22:40 Acetaminophen < 5.0 ug/mL (10.0-30.0) L 04/06/19 20:05 Ur Barbiturates Screen Presumptive negative 04/06/19 22:40 Valproic Acid 2.8 ug/mL (50-100) L 04/08/19 07:33 Ur Phencyclidine Scrn Presumptive negative 04/06/19 22:40 Ur Amphetamines Screen Presumptive negative 04/06/19 22:40 U Benzodiazepines Scrn Presumptive negative 04/06/19 22:40 Presumptive negative 04/06/19 22:40 U Marijuana (THC) Screen Presumptive negative 04/06/19 22:40 Disclamer 04/06/19 22:40 Plasma/Serum Alcohol < 0.01 % (0-0.07) 04/06/19 20:05 HIV 1&2 Antibody Rapid Non react (Non React) 04/08/19 17:46 Non react (Non React) 04/08/19 17:46 Active Medications - Current Medications Current Medications: Generic Name Dose Route Start Last Admin Trade Name Freq PRN Reason Stop Dose Admin Albuterol 2.5 mg 04/08/19 17:09 Proventil IH Q4H PRN Shortness Of Breath Amlodipine Besylate 5 mg 04/07/19 22:00 04/09/19 12:21 Norvasc PO Not Given DAILY [facility] Calcium/Vitamin D 1 each 04/07/19 22:00 04/09/19 12:22 Oysco D 500 Mg-200 Unit PO Not Given BID [facility] Folic Acid 1 mg 04/07/19 22:00 04/09/19 12:21 Folvite PO Not Given QDAY [facility] Gabapentin 300 mg 04/07/19 22:00 04/09/19 13:01 Neurontin PO Not Given Q8HR [facility] Hydralazine HCl 10 mg 04/08/19 17:13 Apresoline IV Q6H PRN SBP > 155 Sodium Chloride 1,000 mls @ 75 mls/hr 04/08/19 18:00 Nacl 0.45% 1000 Ml IV DIRECT [facility] Ceftriaxone Sodium 1 gm in 50 mls @ 100 mls/hr 04/08/19 18:00 04/08/19 18:50 Rocephin/Ns 1 Gm/50 Ml IV Not Given Q24H [facility] Protocol Melatonin 5 mg 04/07/19 23:00 04/08/19 22:00 Melatonin PO Not Given QHS [facility] Methylprednisolone Sodium Succinate 60 mg 04/09/19 22:00 Solu-Medrol IV BID [facility] Metoprolol Tartrate 50 mg 04/08/19 10:00 04/09/19 12:21 Lopressor PO Not Given BID [facility] Ondansetron HCl 4 mg 04/08/19 17:09 Zofran IV Q8H PRN Nausea And Vomiting Sodium Chloride 10 ml 04/08/19 22:00 04/09/19 12:22 Sodium Chloride Flush Syringe 10 Ml IV Not Given BID [facility] Sodium Chloride 10 ml 04/08/19 17:09 Sodium Chloride Flush Syringe 10 Ml IV PRN PRN LINE FLUSH Thiamine HCl 100 mg 04/07/19 22:00 04/09/19 12:23 Vitamin B-1 PO Not Given QDAY [facility]
--- NOTE | 2019-04-09 18:05 | Progress Note ---
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 notes she is very confused / psychotic at this point si detailed hx is 9mpossible by report states she has lupus sees Frank Luque MD Rheum. sitter in room with her full note dictated Objective - Vital Sign Vital Signs - 12hr 04/09/19 04/09/19 04/09/19 11:35 16:13 16:24 Temperature 102.0 F H 97.2 F L Pulse Rate 114 H 117 H Respiratory 16 16 Rate Blood Pressure 133/67 169/82 O2 Sat by Pulse 94 Oximetry - Laboratory Findings CBC and BMP: 04/08/19 17:46 04/06/19 20:05 Abnormal Lab Findings: Abnormal Labs 04/06/19 04/06/19 04/06/19 20:04 20:05 20:05 WBC RBC 3.05 L Hgb 9.8 L MCV 104 H RDW 24.7 H Lymph % (Auto) 5.7 L Lymph # 0.3 L Seg Neutrophils % 90.0 H Seg Neuts % (Manual) Monocytes % (Manual) Nucleated RBC % Lymphocytes # (Manual) Chloride 97.9 L Glucose 161 H Lactic Acid Total Creatine Kinase 19 L C-Reactive Protein Albumin 3.6 L Urine pH Salicylates < 0.3 L Acetaminophen Valproic Acid 04/06/19 04/06/19 04/06/19 20:05 20:05 22:40 WBC RBC Hgb MCV RDW Lymph % (Auto) Lymph # Seg Neutrophils % Seg Neuts % (Manual) Monocytes % (Manual) Nucleated RBC % Lymphocytes # (Manual) Chloride Glucose Lactic Acid 2.80 H* Total Creatine Kinase C-Reactive Protein Albumin Urine pH 8.0 H Salicylates Acetaminophen < 5.0 L Valproic Acid 04/08/19 04/08/19 04/08/19 07:33 17:46 17:46 WBC 3.8 L RBC 3.04 L Hgb 9.7 L MCV 103 H RDW 23.2 H Lymph % (Auto) Lymph # Seg Neutrophils % Seg Neuts % (Manual) 74.0 H Monocytes % (Manual) 8.0 H Nucleated RBC % 2.0 H Lymphocytes # (Manual) 0.7 L Chloride Glucose Lactic Acid Total Creatine Kinase C-Reactive Protein 5.10 H Albumin Urine pH Salicylates Acetaminophen Valproic Acid 2.8 L
[2019-04-09] MEDS: ROCEPHIN/NS 1 GM/50 ML 1 GM/50 ML BAG IV SCH (18:14)
[2019-04-09] MEDS: SOLU-Medrol IV SCH (21:54)
[2019-04-09] MEDS: MELATONIN PO SCH (21:54)
[2019-04-09] MEDS ORDERED: SOLU-Medrol IV SCH ×2 (22:00)
[2019-04-09 22:54] LABS: Alanine Aminotransferase 21 units/L (7-56); Albumin 3.6 g/dL (3.9-5); BUN/Creatinine Ratio 20; Blood Urea Nitrogen 16 mg/dL (7-17); Calcium 8.7 mg/dL (8.4-10.2); Hemolysis Index 9
--- NOTE | 2019-04-10 02:26 | Consultation ---
HISTORY OF PRESENT ILLNESS: This is a 48-year-old black female who presents to the hospital with an episode of confusion. History is obtained that the nurse saw the patient. She became somewhat confused, had low blood pressure, initially had a respiratory rate of 14, temperature was 98.6. The patient's glucose was 163. Hematocrit was 31. She was subsequently evaluated and noted to have altered mental status, confusion, and on seeing her, she primarily was speaking in [facility]. I could not obtain any reasonable history from her, although she states that she sees Dr. Frank Luque. The patient had had a CT of the head, which showed questionable findings of a right pontine infarct. She has a known history of lupus by her statement. I do not have any family members here to obtain a cross history from. The patient is intermittently slightly agitated, has a very confused, illogical thought process, does not address questions well at all. I asked her why she was not eating and she gave me a completely illogical and irrational answer to that question. Examination grossly shows her to be alert, but highly confused, highly disoriented, very inappropriate. She speaks with almost a psychotic nature of her talk. She will only follow simple commands. I did not feel it was actually possibly to even get a good history from her, given her tangential and very irrational thought processes. I have gone over her CT. I do agree about the pontine lesion on the right side. This is quite clear. There is a solitary mid pontine lesion suggestive of an old infarct. There is widespread mild cerebral atrophy, which is very much different than what I would expect to see for the patient's stated age. I would recommend getting an MRI scan of the patient. I am not sure of the basis of the psychotic thinking and confusion. Probably, family history would be helpful. She has a sitter currently with her and that will obviously need to be continued. Prior to recommending any medication treatment, getting old history will be helpful. It might be worthwhile contacting Dr. Frank Luque's office to see what experience he has had with this lady. She may have been on steroid therapy for her lupus or some other immunosuppressive which may have predisposed her to her urinary tract infection. Alternatively, the basis of the urinary tract infection alone may be associated with delirium that will have to be assessed further. [facility]# [id number] LAZARO/JORDIN
[2019-04-10] MEDS: NEURONTIN PO SCH ×3 (06:56→22:15)
[2019-04-10] MEDS: LOPRESSOR PO SCH ×3 (09:54→22:15)
[2019-04-10] MEDS: SOLU-Medrol IV SCH ×3 (09:55→22:16)
[2019-04-10] MEDS: NORVASC PO SCH ×2 (09:55→10:06)
[2019-04-10] MEDS: OYSCO D 500 MG-200 UNIT PO SCH ×3 (10:03→22:15)
[2019-04-10] MEDS: FOLVITE PO SCH (10:03)
[2019-04-10] MEDS: VITAMIN B-1 PO SCH (10:03)
[2019-04-10] MEDS: SODIUM CHLORIDE FLUSH SYRINGE 10 ML IV SCH ×2 (10:03→22:17)
--- NOTE | 2019-04-10 13:00 | Progress Note ---
Subjective - Reason for Consult Consult date: 04/10/19 Reason for consult: Psychiatry Follow-up - Chief Complaint Chief complaint: "I don't want to eat" 48 y.o. AA female presented to the ER for bizarre behavior. Today the patient is tangent and disorganized during the assessment. She continue to be paranoid and hyper verbal during the interview. Constant redirection was necessary with the patient. The patient is refusing PO medis per the MAR and not eating regularly per the staff. No gestures of SI/HI's. 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 Today the patient was tangent and disorganized during the assessment. UDS is negative. Medical: The patient has a hx of Lopus per collateral information from her . Recommendation/Plan: Continue 1013 and Melatonin 5 mg PO HS for sleep. Start Zyoexa Zydis ODT 5 mg PO HS for psychosis. Attempted to discuss possible metabolic side effects of Zyprexa Zydis with the patient. Monitor the patient's oral intake. Dispo: Proper dispo will be determined once the patient is medically clear. Will staff with Dr Kylie Carson.
--- NOTE | 2019-04-10 13:26 | Consultation ---
History of Present Illness - Reason for Consult Consult date: 04/10/19 Fever Requesting physician: JAMES LAINEZ - History of Present Illness The patient is a 48-year-old female with hypertension, asthma, SLE was brought into the emergency room on 04/06/2019 with altered mental status exhibiting bizarre behavior. She was evaluated by the psychiatry team and was placed on 1013. Apparently, she had a recent prolonged hospitalization at [place] with question for possible lupus cerebritis. The patient started spiking fevers as high as 102.5F on 04/08/2019 and was hospitalized. She was empirically started on IV ceftriaxone. Due to ongoing fevers, infectious diseases was consulted. Patient is awake, alert but is a poor historian. She answers basic questions followed by multiple tangential statements. Does not appear to be in any respiratory distress. History also obtained by chart review. Review of Systems: General: fever +, no chills HEENT: no new visual disturbance Respiratory: No cough, sputum, hemoptysis or shortness of breath Cardiovascular: No chest pain, syncope Gastrointestinal: No nausea, vomiting or diarrhea Genitourinary: No dysuria or hematuria Musculoskeletal: No new or worsening neck pain or back pain Neurologic: No headaches, seizures Hematologic: No easy bruising or bleeding Endocrine: No night sweats or acute weight loss Skin: negative for rash, jaundice Psychiatric: No suicidal or homicidal ideation Past History Past Medical History: hyperlipidemia, other (Lupus, Asthma) Past Surgical History: No surgical history, Other (reviewed) Social history: , lives with family Family history: hypertension Medications and Allergies Allergies Allergy/AdvReac Type Severity Reaction Status Date / Time acetaminophen [From Percocet] Allergy Unknown Verified 04/06/19 19:51 milk Allergy Unknown Verified 04/07/19 06:01 oxycodone [From Percocet] Allergy Unknown Verified 04/06/19 19:51 Home Medications Medication Instructions Recorded Confirmed Last Taken Type Albuterol Sulfate [Proair 90 mcg IH QID PRN 04/07/19 04/07/19 Unknown History Respiclick] Amlodipine Besylate [Norvasc] 5 mg PO DAILY 04/07/19 04/07/19 Unknown History Ca/D3/Mag Ox/Zinc/Interior Plant Caretaker/Thony/Bor 1 each PO BID 04/07/19 04/07/19 Unknown History [Calcium 600+D3 Plus Caplet] Folic Acid [Folvite] 1 mg PO QDAY 04/07/19 04/07/19 Unknown History Gabapentin [Neurontin] 300 mg PO Q8HR 04/07/19 04/07/19 Unknown History Melatonin [Melatonin 3MG TAB] 3 mg PO QHS 04/07/19 04/07/19 Unknown History Metoprolol [Lopressor] 100 mg PO BID 04/07/19 04/07/19 Unknown History Thiamine [Vitamin B-1] 100 mg PO QDAY 04/07/19 04/07/19 Unknown History cloNIDine-TTS PATCH [Catapres-Tts 1 patch TD Q7D 04/07/19 04/07/19 03/26/19 Hi story 0.2mg Patch] 0.2 mg Active Meds: Active Medications Albuterol (Proventil) 2.5 mg IH Q4H PRN PRN Reason: Shortness Of Breath Amlodipine Besylate (Norvasc) 5 mg PO DAILY [facility] Last Admin: 04/10/19 10:06 Dose: Not Given Documented by: Calcium/Vitamin D (Oysco D 500 Mg-200 Unit) 1 each PO BID [facility] Last Admin: 04/10/19 10:03 Dose: Not Given Documented by: Folic Acid (Folvite) 1 mg PO QDAY [facility] Last Admin: 04/10/19 10:03 Dose: Not Given Documented by: Gabapentin (Neurontin) 300 mg PO Q8HR [facility] Last Admin: 04/10/19 06:56 Dose: Not Given Documented by: Hydralazine HCl (Apresoline) 10 mg IV Q6H PRN PRN Reason: SBP > 155 Sodium Chloride (Nacl 0.45% 1000 Ml) 1,000 mls @ 75 mls/hr IV DIRECT MADELINE Ceftriaxone Sodium (Rocephin/Ns 1 Gm/50 Ml) 1 gm in 50 mls @ 100 mls/hr IV Q24H [facility]; Protocol Last Admin: 04/09/19 18:14 Dose: Not Given Documented by: Melatonin (Melatonin) 5 mg PO QHS [facility] Last Admin: 04/09/19 21:54 Dose: Not Given Documented by: Methylprednisolone Sodium Succinate (Solu-Medrol) 60 mg IV BID [facility] Last Admin: 04/10/19 10:06 Dose: Not Given Documented by: Metoprolol Tartrate (Lopressor) 50 mg PO BID [facility] Last Admin: 04/10/19 10:08 Dose: Not Given Documented by: Olanzapine (Zyprexa Zydis) 5 mg PO HS [facility] Ondansetron HCl (Zofran) 4 mg IV Q8H PRN PRN Reason: Nausea And Vomiting Sodium Chloride (Sodium Chloride Flush Syringe 10 Ml) 10 ml IV BID [facility] Last Admin: 04/10/19 10:03 Dose: Not Given Documented by: Sodium Chloride (Sodium Chloride Flush Syringe 10 Ml) 10 ml IV PRN PRN PRN Reason: LINE FLUSH Thiamine HCl (Vitamin B-1) 100 mg PO QDAY [facility] Last Admin: 04/10/19 10:03 Dose: Not Given Documented by: Physical Examination - Physical Exam Narrative exam: Physical Exam: Constitutional: Alert, cooperative. No acute distress Head, Ears, Nose: Normocephalic, atraumatic. External ears, nose normal Eyes: Conjunctivae/corneas clear. No icterus. No ptosis. Neck: Supple, no meningeal signs Oral: dentition fair, no thrush Cardiovascular: S1, S2 normal. Respiratory: Good air entry, clear to auscultation bilaterally GI: Soft, non-tender; bowel sounds normal. No peritoneal signs Musculoskeletal: No pedal edema, no cyanosis. Skin: No rash or abscess Hem/Lymphatic: No palpable cervical or supraclavicular nodes. No lymphangitis Psych: affect flat Neurological: Awake, alert, oriented - Constitutional Vitals: Vital Signs Temp Pulse Resp BP Pulse Ox 98.9 F 99 H 18 180/91 100 04/10/19 12:41 04/10/19 12:42 04/10/19 12:41 04/10/19 12:41 04/10/19 12:42 Temperature -Last 24 Hours Temperature 98.9 F Temperature 99.8 F Temperature 99.8 F Temperature 101.2 F Temperature 101.2 F Temperature 97.2 F Results - Labs CBC & Chem 7: 04/08/19 17:46 04/09/19 15:00 Labs: Abnormal lab results 04/09/19 Range/Units 15:00 Total Protein 6.2 L (6.3-8.2) g/dL Albumin 3.6 L (3.9-5) g/dL - Imaging and Cardiology Chest x-ray: report reviewed, image reviewed (no pneumonia ) Assessment and Plan Microbiology: 04/08/2019 HIV screen: Nonreactive A/P: 48-year-old female with hypertension, asthma, SLE was brought into the emergency room on 04/06/2019 with altered mental status exhibiting bizarre behavior. She was evaluated by the psychiatry team and was placed on 1013. Apparently, she had a recent prolonged hospitalization at [facility] with question for possible lupus cerebritis. Now with: 1) Fever, of unclear etiology: Leukopenia present, chest x-ray without evidence of pneumonia. UA not consistent with UTI. No abdominal symptoms as such. Fever c ould be SLE flare related. We will obtain blood cultures and procalcitonin. She is awake and alert and exhibiting bizarre behavior but has no meningeal signs as such to suggest meningitis. Renal function, LFTs normal. CRP is elevated at 5.1. Obtain C3, C4. 2) Acute encephalopathy: Neurology, Psychiatry following. HIV negative. Will also check RPR. Unlikely meningitis. 3) SLE: check C3, C4. On steroids. Recs: blood cultures ordered procalcitonin ordered C3, C4 ordered continue IV Ceftriaxone for now monitor CBC with differential D/W Dr. Lainez. Ca Cochran MD [facility], [place] C: [phone] O: [phone] F: [phone]
--- NOTE | 2019-04-10 14:53 | Progress Note ---
Assessment and Plan Assessment and plan: Acute encephalopathy. 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 Patient was previously hospitalized at [facility] earlier this month. We will attempt to obtain all records from [facility]. patient is Solumedrol 60 mg IV b.i.d. Neurology and psych consult appreciated. Psychosis; on zyprexa Sepsis; patient is on ceftriaxone. ID input appreciated SLE. F/U AND, Anti DS DNA Ab, ESR, CRP Hypertension. Continue Antihypertensive medications. PRN hydralazine. uncontrolled. Asthma; not in exacerbation DVT prophylaxis; on lovenox. Disposition; continue inpatient care. History Interval history: Patient was seen and evaluated this morning, patient was confused and paranoid. When she talks doesn't make sense. Hospitalist Physical - Physical exam Narrative exam: Not in cardiopulmonary distress. The patient appeared well nourished and normally developed. Vital signs as documented. Head exam is unremarkable. No scleral icterus . Neck is without jugular venous distension, thyromegaly, or carotid bruits. Lungs are clear to auscultation. Cardiac exam reveals regular rate and Rhythm. Abdominal exam reveals normal bowel sounds, no masses, no organomegaly and no aortic enlargement. Extremities are nonedematous and both femoral and pedal pulses are normal. CUFF RUNNER: Alert and oriented 3. 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 - Constitutional Vitals: Temp Pulse Resp BP Pulse Ox 98.9 F 99 H 18 180/91 100 04/10/19 12:41 04/10/19 12:42 04/10/19 12:41 04/10/19 12:41 04/10/19 12:42 General appearance: Present: mild distress Results - Labs CBC & Chem 7: 04/08/19 17:46 04/09/19 15:00 Labs: Laboratory Last Values WBC 3.8 K/mm3 (4.5-11.0) L 04/08/19 17:46 RBC 3.04 M/mm3 (3.65-5.03) L 04/08/19 17:46 Hgb 9.7 gm/dl (10.1-14.3) L 04/08/19 17:46 Hct 31.2 % (30.3-42.9) 04/08/19 17:46 MCV 103 fl (79-97) H 04/08/19 17:46 MCH 32 pg (28-32) 04/08/19 17:46 MCHC 31 % (30-34) 04/08/19 17:46 RDW 23.2 % (13.2-15.2) H 04/08/19 17:46 Plt Count 291 K/mm3 (140-440) 04/08/19 17:46 Lymph % (Auto) 5.7 % (13.4-35.0) L 04/06/19 20:05 [place] % (Auto) 3.4 % (0.0-7.3) 04/06/19 20:05 Eos % (Auto) 0.0 % (0.0-4.3) 04/06/19 20:05 Baso % (Auto) 0.9 % (0.0-1.8) 04/06/19 20:05 Lymph # 0.3 K/mm3 (1.2-5.4) L 04/06/19 20:05 Jasper # 0.2 K/mm3 (0.0-0.8) 04/06/19 20:05 Eos # 0.0 K/mm3 (0.0-0.4) 04/06/19 20:05 Baso # 0.0 K/mm3 (0.0-0.1) 04/06/19 20:05 Add Manual Diff Complete 04/08/19 17:46 Total Counted 100 04/08/19 17:46 Seg Neutrophils % 90.0 % (40.0-70.0) H 04/06/19 20:05 Seg Neuts % (Manual) 74.0 % (40.0-70.0) H 04/08/19 17:46 0 % 04/08/19 17:46 18.0 % (13.4-35.0) 04/08/19 17:46 Reactive Lymphs % (Man) 0 % 04/08/19 17:46 8.0 % (0.0-7.3) H 04/08/19 17:46 0 % (0.0-4.3) 04/08/19 17:46 0 % (0.0-1.8) 04/08/19 17:46 0 % 04/08/19 17:46 0 % 04/08/19 17:46 0 % 04/08/19 17:46 0 % 04/08/19 17:46 Nucleated RBC % 2.0 % (0.0-0.9) H 04/08/19 17:46 Seg Neutrophils # 4.7 K/mm3 (1.8-7.7) 04/06/19 20:05 Seg Neutrophils # Man 2.8 K/mm3 (1.8-7.7) 04/08/19 17:46 Band Neutrophils # 0.0 K/mm3 04/08/19 17:46 0.7 K/mm3 (1.2-5.4) L 04/08/19 17:46 Abs React Lymphs (Man) 0.0 K/mm3 04/08/19 17:46 0.3 K/mm3 (0.0-0.8) 04/08/19 17:46 0.0 K/mm3 (0.0-0.4) 04/08/19 17:46 0.0 K/mm3 (0.0-0.1) 04/08/19 17:46 0.0 K/mm3 04/08/19 17:46 0.0 K/mm3 04/08/19 17:46 0.0 K/mm3 04/08/19 17:46 Blast Cells # 0.0 K/mm3 04/08/19 17:46 WBC Morphology Not Reportable 04/08/19 17:46 WBC Morphology TNR 04/08/19 17:46 Hypersegmented Neuts Not Reportable 04/08/19 17:46 Hyposegmented Neuts Not Reportable 04/08/19 17:46 Hypogranular Neuts Not Reportable 04/08/19 17:46 Not Reportable 04/08/19 17:46 Not Reportable 04/08/19 17:46 Not Reportable 04/08/19 17:46 Not Reportable 04/08/19 17:46 Not Reportable 04/08/19 17:46 Not Reportable 04/08/19 17:46 Consistent w auto 04/08/19 17:46 Not Reportable 04/08/19 17:46 Plt Clumps, EDTA Not Reportable 04/08/19 17:46 Not Reportable 04/08/19 17:46 Not Reportable 04/08/19 17:46 Not Reportable 04/08/19 17:46 Plt Morphology Comment Not Reportable 04/08/19 17:46 RBC Morphology Not Reportable 04/08/19 17:46 Dimorphic RBCs Not Reportable 04/08/19 17:46 Not Reportable 04/08/19 17:46 Not Reportable 04/08/19 17:46 Not Reportable 04/08/19 17:46 1+ 04/08/19 17:46 Not Reportable 04/08/19 17:46 Not Reportable 04/08/19 17:46 Not Reportable 04/08/19 17:46 Not Reportable 04/08/19 17:46 Not Reportable 04/08/19 17:46 Not Reportable 04/08/19 17:46 Not Reportable 04/08/19 17:46 Not Reportable 04/08/19 17:46 Not Reportable 04/08/19 17:46 Not Reportable 04/08/19 17:46 Not Reportable 04/08/19 17:46 Not Reportable 04/08/19 17:46 Not Reportable 04/08/19 17:46 Not Reportable 04/08/19 17:46 Not Reportable 04/08/19 17:46 Acanthocytes (Spur) Not Reportable 04/08/19 17:46 Rouleaux Not Reportable 04/08/19 17:46 Not Reportable 04/08/19 17:46 Not Reportable 04/08/19 17:46 Not Reportable 04/08/19 17:46 ESR 47 mm/Hr (0-20) 04/08/19 17:46 Not Reportable 04/08/19 17:46 Hem Pathologist Commnt No 04/08/19 17:46 Sodium 138 mmol/L (137-145) 04/09/19 15:00 Potassium 4.4 mmol/L (3.6-5.0) 04/09/19 15:00 Chloride 98.4 mmol/L (98-107) 04/09/19 15:00 Carbon Dioxide 25 mmol/L (22-30) 04/09/19 15:00 19 mmol/L 04/09/19 15:00 BUN 16 mg/dL (7-17) 04/09/19 15:00 0.8 mg/dL (0.7-1.2) 04/09/19 15:00 Estimated GFR > 60 ml/min 04/09/19 15:00 20 % 04/09/19 15:00 Glucose 72 mg/dL (65-100) 04/09/19 15:00 Lactic Acid 0.90 mmol/L (0.7-2.0) 04/08/19 21:48 Calcium 8.7 mg/dL (8.4-10.2) 04/09/19 15:00 0.40 mg/dL (0.1-1.2) 04/09/19 15:00 AST 21 units/L (5-40) 04/09/19 15:00 ALT 21 units/L (7-56) 04/09/19 15:00 81 units/L (35-129) 04/09/19 15:00 29.0 umol/L (25-60) 04/06/19 20:05 19 units/L (30-135) L 04/06/19 20:05 < 0.010 ng/mL (0.00-0.029) 04/06/19 20:05 5.10 mg/dL (0.00-1.30) H 04/08/19 17:46 6.2 g/dL (6.3-8.2) L 04/09/19 15:00 3.6 g/dL (3.9-5) L 04/09/19 15:00 1.4 % 04/09/19 15:00 TSH 1.680 mlU/mL (0.270-4.200) 04/08/19 17:46 Free T4 1.20 ng/dL (0.76-1.46) 04/08/19 17:46 Yellow (Yellow) 04/06/19 22:40 Clear (Clear) 04/06/19 22:40 8.0 (5.0-7.0) H 04/06/19 22:40 Ur Specific [place]hal 1.011 (1.003-1.030) 04/06/19 22:40 <15 mg/dl mg/dL (Negative) 04/06/19 22:40 50 mg/dL (Negative) 04/06/19 22:40 Neg mg/dL (Negative) 04/06/19 22:40 Neg (Negative) 04/06/19 22:40 Neg (Negative) 04/06/19 22:40 Neg (Negative) 04/06/19 22:40 < 2.0 mg/dL (<2.0) 04/06/19 22:40 Ur Leukocyte Esterase Neg (Negative) 04/06/19 22:40 1.0 /HPF (0.0-6.0) 04/06/19 22:40 2.0 /HPF (0.0-6.0) 04/06/19 22:40 U Epithel Cells (Auto) < 1.0 /HPF (0-13.0) 04/06/19 22:40 Hyaline Casts 1 /LPF 04/06/19 22:40 Salicylates < 0.3 mg/dL (2.8-20.0) L 04/06/19 20:04 Presumptive negative 04/06/19 22:40 Presumptive negative 04/06/19 22:40 Acetaminophen < 5.0 ug/mL (10.0-30.0) L 04/06/19 20:05 Ur Barbiturates Screen Presumptive negative 04/06/19 22:40 Valproic Acid 2.8 ug/mL (50-100) L 04/08/19 07:33 Ur Phencyclidine Scrn Presumptive negative 04/06/19 22:40 Ur Amphetamines Screen Presumptive negative 04/06/19 22:40 U Benzodiazepines Scrn Presumptive negative 04/06/19 22:40 Presumptive negative 04/06/19 22:40 U Marijuana (THC) Screen Presumptive negative 04/06/19 22:40 Disclamer 04/06/19 22:40 Plasma/Serum Alcohol < 0.01 % (0-0.07) 04/06/19 20:05 HIV 1&2 Antibody Rapid Non react (Non React) 04/08/19 17:46 Non react (Non React) 04/08/19 17:46 Active Medications - Current Medications Current Medications: Generic Name Dose Route Start Last Admin Trade Name Freq PRN Reason Stop Dose Admin Albuterol 2.5 mg 04/08/19 17:09 Proventil IH Q4H PRN Shortness Of Breath Amlodipine Besylate 5 mg 04/07/19 22:00 04/10/19 10:06 Norvasc PO Not Given DAILY REPLACED BY [facility] Calcium/Vitamin D 1 each 04/07/19 22:00 04/10/19 10:03 Oysco D 500 Mg-200 Unit PO Not Given BID MADELINE Folic Acid 1 mg 04/07/19 22:00 04/10/19 10:03 Folvite PO Not Given QDAY REPLACED BY [facility] Gabapentin 300 mg 06/28/19 22:00 04/10/19 06:56 Neurontin PO Not Given Q8HR REPLACED BY [facility] Hydralazine HCl 10 mg 04/08/19 17:13 Apresoline IV Q6H PRN SBP > 155 Sodium Chloride 1,000 mls @ 75 mls/hr 04/08/19 18:00 Nacl 0.45% 1000 Ml IV DIRECT REPLACED BY [facility] Ceftriaxone Sodium 1 gm in 50 mls @ 100 mls/hr 04/08/19 18:00 04/09/19 18:14 Rocephin/Ns 1 Gm/50 Ml IV Not Given Q24H REPLACED BY [facility] Protocol Melatonin 5 mg 04/07/19 23:00 04/09/19 21:54 Melatonin PO Not Given QHS REPLACED BY [facility] Methylprednisolone Sodium Succinate 60 mg 04/09/19 22:00 04/10/19 10:06 Solu-Medrol IV Not Given BID REPLACED BY [facility] Metoprolol Tartrate 50 mg 04/08/19 10:00 04/10/19 10:08 Lopressor PO Not Given BID REPLACED BY [facility] Olanzapine 5 mg 04/10/19 22:00 Zyprexa Zydis PO HS REPLACED BY [facility] Ondansetron HCl 4 mg 04/08/19 17:09 Zofran IV Q8H PRN Nausea And Vomiting Sodium Chloride 10 ml 04/08/19 22:00 04/10/19 10:03 Sodium Chloride Flush Syringe 10 Ml IV Not Given BID REPLACED BY [facility] Sodium Chloride 10 ml 04/08/19 17:09 Sodium Chloride Flush Syringe 10 Ml IV PRN PRN LINE FLUSH Thiamine HCl 100 mg 04/07/19 22:00 04/10/19 10:03 Vitamin B-1 PO Not Given QDAY REPLACED BY [facility]
[2019-04-10] MEDS: ROCEPHIN/NS 1 GM/50 ML 1 GM/50 ML BAG IV SCH (18:13)
[2019-04-10] MEDS: APRESOLINE IV PRN (19:46)
[2019-04-10] MEDS: MELATONIN PO SCH (22:15)
[2019-04-10] MEDS: LOVENOX SUB-Q SCH (22:16)
[2019-04-11] MEDS: NEURONTIN PO SCH ×3 (06:03→22:14)
--- NOTE | 2019-04-11 08:15 | Progress Note ---
Subjective - Reason for Consult Consult date: 04/11/19 Reason for consult: Psychiatry Follow-up - Chief Complaint Chief complaint: "I will eat grits" 48 y.o. AA female presented to the ER for bizarre behavior. Today the patient was calm and somewhat cooperative during the assessment. She was asked about eating, she stated, "I will eat grits." She stated that grits are her favorite. She stated that she will be compliant with her medications. She still appears to be paranoid. She denies SI/HI's and AVH's. 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 Today the patient was tangent and disorganized during the assessment. UDS is negative. DDx: Delirium Medical: The patient has a hx of Lopus per collateral information from her . Recommendation/Plan: Continue 1013, Melatonin 5 mg PO HS for sleep, and Zyoexa Zydis ODT 5 mg PO HS for psychosis. Attempted to discuss possible metabolic side effects of Zyprexa Zydis with the patient. Monitor the patient's oral intake. Dispo: Proper dispo will be determined once the patient is medically clear. Staffed with Dr Kylie Carson.
--- NOTE | 2019-04-11 09:19 | Progress Note ---
Assessment and Plan Microbiology: 04/08/2019 HIV screen: Nonreactive A/P: 48-year-old female with hypertension, asthma, SLE was brought into the emergency room on 04/06/2019 with altered mental status exhibiting bizarre behavior. She was evaluated by the psychiatry team and was placed on 1013. Apparently, she had a recent prolonged hospitalization at [facility] with question for possible lupus cerebritis. Now with: 1) Fever, of unclear etiology: improved. no fever in > 24 hours. Leukopenia present, chest x-ray without evidence of pneumonia. UA not consistent with UTI. No abdominal symptoms as such. Fever could be SLE flare related. We will obtain blood cultures and procalcitonin. She is awake and alert and exhibiting bizarre behavior but has no meningeal signs as such to suggest meningitis. Renal func tion, LFTs normal. CRP is elevated at 5.1. Obtain C3, C4. 2) Acute encephalopathy: Neurology, Psychiatry following. HIV negative. Will also check RPR. Unlikely meningitis. 3) SLE: check C3, C4. On steroids. Recs: blood cultures, procalcitonin, C3, C4 and CBC ordered - unable to obtain, patient refusing Discontinue IV Ceftriaxone - patient refusing IV medications Ashley Price NP [facility] M: [phone] O:[phone] Subjective Date of service: 04/11/19 Interval history: Patient seen, uncooperative and agitated during assessment. Preoccupied with medication given at the hospital. Refusing labs because she is a "Jehovah witness". Son at bedside, unable to reorient patient. Objective - Exam Narrative Exam: Constitutional: Awake. Alert. Uncooperative. Head, Ears, Nose: Normocephalic, atraumatic. External ears, nose normal Eyes: Conjunctivae/corneas clear. No icterus. No ptosis. Neck: Supple, no meningeal signs Oral: dentition fair, no thrush Cardiovascular: S1, S2 normal. Respiratory: unable to access GI: unable to access Musculoskeletal: No pedal edema, no cyanosis. Skin: No rash or abscess Hem/Lymphatic: unable to access Psych: agitated, confused Neurological: Awake, alert, confused - Constitutional Vitals: Vital Signs Temp Pulse Resp BP Pulse Ox 98.5 F 69 18 158/72 100 04/11/19 06:42 04/11/19 06:42 04/11/19 06:42 04/11/19 06:42 04/11/19 06:42 Temperature -Last 24 Hours Temperature 98.5 F Temperature 98.0 F Temperature 99.0 F Temperature 99.1 F Temperature 99.3 F Temperature 98.9 F - Labs CBC & Chem 7: 04/08/19 17:46 04/09/19 15:00
[2019-04-11] MEDS: SOLU-Medrol IV SCH ×2 (10:56→22:14)
[2019-04-11] MEDS: VITAMIN B-1 PO SCH (10:56)
[2019-04-11] MEDS: FOLVITE PO SCH (10:56)
[2019-04-11] MEDS: OYSCO D 500 MG-200 UNIT PO SCH ×2 (10:56→22:14)
[2019-04-11] MEDS: LOPRESSOR PO SCH ×2 (10:56→22:12)
[2019-04-11] MEDS: NORVASC PO SCH (10:57)
[2019-04-11] MEDS: SODIUM CHLORIDE FLUSH SYRINGE 10 ML IV SCH ×2 (10:57→22:14)
--- NOTE | 2019-04-11 15:19 | Progress Note ---
Assessment and Plan Assessment and plan: Acute encephalopathy. 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 Patient was previously hospitalized at [place] earlier this month. We will attempt to obtain all records from [facility]. patient is Solumedrol 60 mg IV b.i.d. Neurology and psych consult appreciated. Psychosis; on zyprexa Sepsis; patient is on ceftriaxone. ID input appreciated SLE. F/U AND, Anti DS DNA Ab, ESR, CRP Hypertension. Continue Antihypertensive medications. PRN hydralazine. uncontrolled. Asthma; not in exacerbation DVT prophylaxis; on lovenox. Disposition; continue inpatient care. History Interval history: Patient was seen and evaluated this morning, patient was confused and paranoid. she asked me to call her PCP and [facility] [employer]. she said "I am not crazy" Hospitalist Physical - Physical exam Narrative exam: Not in cardiopulmonary distress. The patient appeared well nourished and normally developed. Vital signs as documented. Head exam is unremarkable. No scleral icterus . Neck is without jugular venous distension, thyromegaly, or carotid bruits. Lungs are clear to auscultation. Cardiac exam reveals regular rate and Rhythm. Abdominal exam reveals normal bowel sounds, no masses, no organomegaly and no aortic enlargement. Extremities are nonedematous and both femoral and pedal pulses are normal. 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 - Constitutional Vitals: Temp Pulse Resp BP Pulse Ox 98.4 F 92 H 19 150/77 100 04/11/19 12:05 04/11/19 12:05 04/11/19 12:05 04/11/19 12:05 04/11/19 12:05 General appearance: Present: mild distress Results - Labs CBC & Chem 7: 04/08/19 17:46 04/09/19 15:00 Labs: Laboratory Last Values WBC 3.8 K/mm3 (4.5-11.0) L 04/08/19 17:46 RBC 3.04 M/mm3 (3.65-5.03) L 04/08/19 17:46 Hgb 9.7 gm/dl (10.1-14.3) L 04/08/19 17:46 Hct 31.2 % (30.3-42.9) 04/08/19 17:46 MCV 103 fl (79-97) H 04/08/19 17:46 MCH 32 pg (28-32) 04/08/19 17:46 MCHC 31 % (30-34) 04/08/19 17:46 RDW 23.2 % (13.2-15.2) H 04/08/19 17:46 Plt Count 291 K/mm3 (140-440) 04/08/19 17:46 Lymph % (Auto) 5.7 % (13.4-35.0) L 04/06/19 20:05 [place] % (Auto) 3.4 % (0.0-7.3) 04/06/19 20:05 Eos % (Auto) 0.0 % (0.0-4.3) 04/06/19 20:05 Baso % (Auto) 0.9 % (0.0-1.8) 04/06/19 20:05 Lymph # 0.3 K/mm3 (1.2-5.4) L 04/06/19 20:05 [place] # 0.2 K/mm3 (0.0-0.8) 04/06/19 20:05 Eos # 0.0 K/mm3 (0.0-0.4) 04/06/19 20:05 Baso # 0.0 K/mm3 (0.0-0.1) 04/06/19 20:05 Add Manual Diff Complete 04/08/19 17:46 Total Counted 100 04/08/19 17:46 Seg Neutrophils % 90.0 % (40.0-70.0) H 04/06/19 20:05 Seg Neuts % (Manual) 74.0 % (40.0-70.0) H 04/08/19 17:46 0 % 04/08/19 17:46 18.0 % (13.4-35.0) 04/08/19 17:46 Reactive Lymphs % (Man) 0 % 04/08/19 17:46 8.0 % (0.0-7.3) H 04/08/19 17:46 0 % (0.0-4.3) 04/08/19 17:46 0 % (0.0-1.8) 04/08/19 17:46 0 % 04/08/19 17:46 0 % 04/08/19 17:46 0 % 04/08/19 17:46 0 % 04/08/19 17:46 Nucleated RBC % 2.0 % (0.0-0.9) H 04/08/19 17:46 Seg Neutrophils # 4.7 K/mm3 (1.8-7.7) 04/06/19 20:05 Seg Neutrophils # Man 2.8 K/mm3 (1.8-7.7) 04/08/19 17:46 Band Neutrophils # 0.0 K/mm3 04/08/19 17:46 0.7 K/mm3 (1.2-5.4) L 04/08/19 17:46 Abs React Lymphs (Man) 0.0 K/mm3 04/08/19 17:46 0.3 K/mm3 (0.0-0.8) 04/08/19 17:46 0.0 K/mm3 (0.0-0.4) 04/08/19 17:46 0.0 K/mm3 (0.0-0.1) 04/08/19 17:46 0.0 K/mm3 04/08/19 17:46 0.0 K/mm3 04/08/19 17:46 0.0 K/mm3 04/08/19 17:46 Blast Cells # 0.0 K/mm3 04/08/19 17:46 WBC Morphology Not Reportable 04/08/19 17:46 WBC Morphology TNR 04/08/19 17:46 Hypersegmented Neuts Not Reportable 04/08/19 17:46 Hyposegmented Neuts Not Reportable 04/08/19 17:46 Hypogranular Neuts Not Reportable 04/08/19 17:46 Not Reportable 04/08/19 17:46 Not Reportable 04/08/19 17:46 Not Reportable 04/08/19 17:46 Not Reportable 04/08/19 17:46 Not Reportable 04/08/19 17:46 Not Reportable 04/08/19 17:46 Consistent w auto 04/08/19 17:46 Not Reportable 04/08/19 17:46 Plt Clumps, EDTA Not Reportable 04/08/19 17:46 Not Reportable 04/08/19 17:46 Not Reportable 04/08/19 17:46 Not Reportable 04/08/19 17:46 Plt Morphology Comment Not Reportable 04/08/19 17:46 RBC Morphology Not Reportable 04/08/19 17:46 Dimorphic RBCs Not Reportable 04/08/19 17:46 Not Reportable 04/08/19 17:46 Not Reportable 04/08/19 17:46 Not Reportable 04/08/19 17:46 1+ 04/08/19 17:46 Not Reportable 04/08/19 17:46 Not Reportable 04/08/19 17:46 Not Reportable 04/08/19 17:46 Not Reportable 04/08/19 17:46 Not Reportable 04/08/19 17:46 Not Reportable 04/08/19 17:46 Not Reportable 04/08/19 17:46 Not Reportable 04/08/19 17:46 Not Reportable 04/08/19 17:46 Not Reportable 04/08/19 17:46 Not Reportable 04/08/19 17:46 Not Reportable 04/08/19 17:46 Not Reportable 04/08/19 17:46 Not Reportable 04/08/19 17:46 Not Reportable 04/08/19 17:46 Acanthocytes (Spur) Not Reportable 04/08/19 17:46 Rouleaux Not Reportable 04/08/19 17:46 Not Reportable 04/08/19 17:46 Not Reportable 04/08/19 17:46 Not Reportable 04/08/19 17:46 ESR 47 mm/Hr (0-20) 04/08/19 17:46 Not Reportable 04/08/19 17:46 Hem Pathologist Commnt No 04/08/19 17:46 Sodium 138 mmol/L (137-145) 04/09/19 15:00 Potassium 4.4 mmol/L (3.6-5.0) 04/09/19 15:00 Chloride 98.4 mmol/L (98-107) 04/09/19 15:00 Carbon Dioxide 25 mmol/L (22-30) 04/09/19 15:00 19 mmol/L 04/09/19 15:00 BUN 16 mg/dL (7-17) 04/09/19 15:00 0.8 mg/dL (0.7-1.2) 04/09/19 15:00 Estimated GFR > 60 ml/min 04/09/19 15:00 20 % 04/09/19 15:00 Glucose 72 mg/dL (65-100) 04/09/19 15:00 Lactic Acid 0.90 mmol/L (0.7-2.0) 04/08/19 21:48 Calcium 8.7 mg/dL (8.4-10.2) 04/09/19 15:00 0.40 mg/dL (0.1-1.2) 04/09/19 15:00 AST 21 units/L (5-40) 04/09/19 15:00 ALT 21 units/L (7-56) 04/09/19 15:00 81 units/L (35-129) 04/09/19 15:00 29.0 umol/L (25-60) 04/06/19 20:05 19 units/L (30-135) L 04/06/19 20:05 < 0.010 ng/mL (0.00-0.029) 04/06/19 20:05 5.10 mg/dL (0.00-1.30) H 04/08/19 17:46 6.2 g/dL (6.3-8.2) L 04/09/19 15:00 3.6 g/dL (3.9-5) L 04/09/19 15:00 1.4 % 04/09/19 15:00 TSH 1.680 mlU/mL (0.270-4.200) 04/08/19 17:46 Free T4 1.20 ng/dL (0.76-1.46) 04/08/19 17:46 Yellow (Yellow) 04/06/19 22:40 Clear (Clear) 04/06/19 22:40 8.0 (5.0-7.0) H 04/06/19 22:40 Ur Specific [place] 1.011 (1.003-1.030) 04/06/19 22:40 <15 mg/dl mg/dL (Negative) 04/06/19 22:40 50 mg/dL (Negative) 04/06/19 22:40 Neg mg/dL (Negative) 04/06/19 22:40 Neg (Negative) 04/06/19 22:40 Neg (Negative) 04/06/19 22:40 Neg (Negative) 04/06/19 22:40 < 2.0 mg/dL (<2.0) 04/06/19 22:40 Ur Leukocyte Esterase Neg (Negative) 04/06/19 22:40 1.0 /HPF (0.0-6.0) 04/06/19 22:40 2.0 /HPF (0.0-6.0) 04/06/19 22:40 U Epithel Cells (Auto) < 1.0 /HPF (0-13.0) 04/06/19 22:40 Hyaline Casts 1 /LPF 04/06/19 22:40 Salicylates < 0.3 mg/dL (2.8-20.0) L 04/06/19 20:04 Presumptive negative 04/06/19 22:40 Presumptive negative 04/06/19 22:40 Acetaminophen < 5.0 ug/mL (10.0-30.0) L 04/06/19 20:05 Ur Barbiturates Screen Presumptive negative 04/06/19 22:40 Valproic Acid 2.8 ug/mL (50-100) L 04/08/19 07:33 Ur Phencyclidine Scrn Presumptive negative 04/06/19 22:40 Ur Amphetamines Screen Presumptive negative 04/06/19 22:40 U Benzodiazepines Scrn Presumptive negative 04/06/19 22:40 Presumptive negative 04/06/19 22:40 U Marijuana (THC) Screen Presumptive negative 04/06/19 22:40 Disclamer 04/06/19 22:40 Plasma/Serum Alcohol < 0.01 % (0-0.07) 04/06/19 20:05 HIV 1&2 Antibody Rapid Non react (Non React) 04/08/19 17:46 Non react (Non React) 04/08/19 17:46 Active Medications - Current Medications Current Medications: Generic Name Dose Route Start Last Admin Trade Name Freq PRN Reason Stop Dose Admin Albuterol 2.5 mg 04/08/19 17:09 Proventil IH Q4H PRN Shortness Of Breath Amlodipine Besylate 5 mg 04/07/19 22:00 04/11/19 10:57 Norvasc PO 5 mg DAILY MADELINE Administration Calcium/Vitamin D 1 each 04/07/19 22:00 04/11/19 10:56 Oysco D 500 Mg-200 Unit PO 1 each BID MADELINE Administration Enoxaparin Sodium 40 mg 04/10/19 22:00 04/10/19 22:16 Lovenox SUB-Q 40 mg QDAY@2200 MADELINE Administration Folic Acid 1 mg 04/07/19 22:00 04/11/19 10:56 Folvite PO 1 mg QDAY MADELINE Administration Gabapentin 300 mg 04/07/19 22:00 04/11/19 13:19 Neurontin PO 300 mg Q8HR MADELINE Administration Hydralazine HCl 10 mg 04/08/19 17:13 04/10/19 19:46 Apresoline IV 10 mg Q6H PRN Administration SBP > 155 Sodium Chloride 1,000 mls @ 75 mls/hr 04/08/19 18:00 Nacl 0.45% 1000 Ml IV DIRECT MADELINE Melatonin 5 mg 04/07/19 23:00 04/10/19 22:15 Melatonin PO 5 mg QHS MADELINE Administration Methylprednisolone Sodium Succinate 60 mg 04/09/19 22:00 04/11/19 10:56 Solu-Medrol IV 60 mg BID MADELINE Administration Metoprolol Tartrate 50 mg 04/08/19 10:00 04/11/19 10:56 Lopressor PO 50 mg BID MADELINE Administration Olanzapine 5 mg 04/10/19 22:00 04/10/19 22:15 Zyprexa Zydis PO 5 mg HS MADELINE Administration Ondansetron HCl 4 mg 04/08/19 17:09 Zofran IV Q8H PRN Nausea And Vomiting Sodium Chloride 10 ml 04/08/19 22:00 04/11/19 10:57 Sodium Chloride Flush Syringe 10 Ml IV 10 ml BID MADELINE Administration Sodium Chloride 10 ml 04/08/19 17:09 Sodium Chloride Flush Syringe 10 Ml IV PRN PRN LINE FLUSH Thiamine HCl 100 mg 04/07/19 22:00 04/11/19 10:56 Vitamin B-1 PO 100 mg QDAY MADELINE Administration
[2019-04-11] MEDS: MELATONIN PO SCH (22:13)
[2019-04-11] MEDS: LOVENOX SUB-Q SCH (22:13)
[2019-04-12] MEDS: NEURONTIN PO SCH ×3 (05:24→21:37)
[2019-04-12] MEDS: APRESOLINE IV PRN (06:11)
[2019-04-12] MEDS ORDERED: NORVASC PO SCH (08:18)
[2019-04-12] MEDS: NORVASC PO SCH (09:00)
[2019-04-12] MEDS: LOPRESSOR PO SCH ×2 (10:00→21:35)
--- NOTE | 2019-04-12 10:53 | Progress Note ---
Assessment and Plan Microbiology: 04/08/2019 HIV screen: Nonreactive A/P: 48-year-old female with hypertension, asthma, SLE was brought into the emergency room on 04/06/2019 with altered mental status exhibiting bizarre behavior. She was evaluated by the psychiatry team and was placed on 1013. Apparently, she had a recent prolonged hospitalization at [place] with question for possible lupus cerebritis. Now with: 1) Fever, of unclear etiology: Resolved. No fever in >48 hours. Leukopenia present, chest x-ray without evidence of pneumonia. UA not consistent with UTI. No abdominal symptoms as such. Fever could be SLE flare related. We will obtain blood cultures and procalcitonin. She is awake and alert and exhibiting bizarre behavior but has no meningeal signs as such to suggest meningitis. Renal funct ion, LFTs normal. CRP is elevated at 5.1. Obtain C3, C4. 2) Acute encephalopathy: Neurology, Psychiatry following. HIV negative. Will also check RPR. Unlikely meningitis. 3) SLE: check C3, C4. On steroids. Recs: blood cultures, procalcitonin, C3, C4 and CBC ordered - unable to obtain, patient refusing monitor off antibiotics ID is signing off [facility] M: [id number] O:[phone] Subjective Date of service: 04/12/19 Interval history: Patient seen, uncooperative and agitated during assessment. Still preoccupied with color of medications and overall care. Continues to refuse labs. Objective - Exam Narrative Exam: Constitutional: Awake. Alert. Uncooperative. Head, Ears, Nose: Normocephalic, atraumatic. External ears, nose normal Eyes: Conjunctivae/corneas clear. No icterus. No ptosis. Neck: Supple, no meningeal signs Oral: dentition fair, no thrush Cardiovascular: S1, S2 normal. Respiratory: unable to access GI: unable to access Musculoskeletal: No pedal edema, no cyanosis. Skin: No rash or abscess Hem/Lymphatic: unable to access Psych: agitated, confused Neurological: Awake, alert, confused - Constitutional Vitals: Vital Signs Temp Pulse Resp BP Pulse Ox 98.0 F 82 18 154/72 100 04/12/19 08:04 04/12/19 08:04 04/12/19 08:04 04/12/19 08:04 04/12/19 08:04 Temperature -Last 24 Hours Temperature 98.0 F Temperature 98.3 F Temperature 97.5 F Temperature 98.8 F Temperature 98.4 F - Labs CBC & Chem 7: 04/08/19 17:46 04/09/19 15:00
--- NOTE | 2019-04-12 11:23 | Progress Note ---
Assessment and Plan Assessment and plan: Acute encephalopathy. 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 Patient was previously hospitalized at [place] earlier this month. We will attempt to obtain all records from [facility]. patient is Solumedrol 60 mg IV b.i.d. Neurology and psych consult appreciated. 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 Disposition; continue inpatient care. History Interval history: Patient was seen and evaluated this morning, patient was confused and paranoid. she asked me to call her daughter to be with her. Hospitalist Physical - Physical exam Narrative exam: Not in cardiopulmonary distress. The patient appeared well nourished and normally developed. Vital signs as documented. Head exam is unremarkable. No scleral icterus . Neck is without jugular venous distension, thyromegaly, or carotid bruits. Lungs are clear to auscultation. Cardiac exam reveals regular rate and Rhythm. Abdominal exam reveals normal bowel sounds, no masses, no organomegaly and no aortic enlargement. Extremities are nonedematous and both femoral and pedal pulses are normal. 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 - Constitutional Vitals: Temp Pulse Resp BP Pulse Ox 98.0 F 82 18 154/72 100 04/12/19 08:04 04/12/19 08:04 04/12/19 08:04 04/12/19 08:04 04/12/19 08:04 General appearance: Present: mild distress Results - Labs CBC & Chem 7: 04/08/19 17:46 04/09/19 15:00 Labs: Laboratory Last Values WBC 3.8 K/mm3 (4.5-11.0) L 04/08/19 17:46 RBC 3.04 M/mm3 (3.65-5.03) L 04/08/19 17:46 Hgb 9.7 gm/dl (10.1-14.3) L 04/08/19 17:46 Hct 31.2 % (30.3-42.9) 04/08/19 17:46 MCV 103 fl (79-97) H 04/08/19 17:46 MCH 32 pg (28-32) 04/08/19 17:46 MCHC 31 % (30-34) 04/08/19 17:46 RDW 23.2 % (13.2-15.2) H 04/08/19 17:46 Plt Count 291 K/mm3 (140-440) 04/08/19 17:46 Lymph % (Auto) 5.7 % (13.4-35.0) L 04/06/19 20:05 [place] % (Auto) 3.4 % (0.0-7.3) 04/06/19 20:05 Eos % (Auto) 0.0 % (0.0-4.3) 04/06/19 20:05 Baso % (Auto) 0.9 % (0.0-1.8) 04/06/19 20:05 Lymph # 0.3 K/mm3 (1.2-5.4) L 04/06/19 20:05 [place] # 0.2 K/mm3 (0.0-0.8) 04/06/19 20:05 Eos # 0.0 K/mm3 (0.0-0.4) 04/06/19 20:05 Baso # 0.0 K/mm3 (0.0-0.1) 04/06/19 20:05 Add Manual Diff Complete 04/08/19 17:46 Total Counted 100 04/08/19 17:46 Seg Neutrophils % 90.0 % (40.0-70.0) H 04/06/19 20:05 Seg Neuts % (Manual) 74.0 % (40.0-70.0) H 04/08/19 17:46 0 % 04/08/19 17:46 18.0 % (13.4-35.0) 04/08/19 17:46 Reactive Lymphs % (Man) 0 % 04/08/19 17:46 8.0 % (0.0-7.3) H 04/08/19 17:46 0 % (0.0-4.3) 04/08/19 17:46 0 % (0.0-1.8) 04/08/19 17:46 0 % 04/08/19 17:46 0 % 04/08/19 17:46 0 % 04/08/19 17:46 0 % 04/08/19 17:46 Nucleated RBC % 2.0 % (0.0-0.9) H 04/08/19 17:46 Seg Neutrophils # 4.7 K/mm3 (1.8-7.7) 04/06/19 20:05 Seg Neutrophils # Man 2.8 K/mm3 (1.8-7.7) 04/08/19 17:46 Band Neutrophils # 0.0 K/mm3 04/08/19 17:46 0.7 K/mm3 (1.2-5.4) L 04/08/19 17:46 Abs React Lymphs (Man) 0.0 K/mm3 04/08/19 17:46 0.3 K/mm3 (0.0-0.8) 04/08/19 17:46 0.0 K/mm3 (0.0-0.4) 04/08/19 17:46 0.0 K/mm3 (0.0-0.1) 04/08/19 17:46 0.0 K/mm3 04/08/19 17:46 0.0 K/mm3 04/08/19 17:46 0.0 K/mm3 04/08/19 17:46 Blast Cells # 0.0 K/mm3 04/08/19 17:46 WBC Morphology Not Reportable 04/08/19 17:46 WBC Morphology TNR 04/08/19 17:46 Hypersegmented Neuts Not Reportable 04/08/19 17:46 Hyposegmented Neuts Not Reportable 04/08/19 17:46 Hypogranular Neuts Not Reportable 04/08/19 17:46 Not Reportable 04/08/19 17:46 Not Reportable 04/08/19 17:46 Not Reportable 04/08/19 17:46 Not Reportable 04/08/19 17:46 Not Reportable 04/08/19 17:46 Not Reportable 04/08/19 17:46 Consistent w auto 04/08/19 17:46 Not Reportable 04/08/19 17:46 Plt Clumps, EDTA Not Reportable 04/08/19 17:46 Not Reportable 04/08/19 17:46 Not Reportable 04/08/19 17:46 Not Reportable 04/08/19 17:46 Plt Morphology Comment Not Reportable 04/08/19 17:46 RBC Morphology Not Reportable 04/08/19 17:46 Dimorphic RBCs Not Reportable 04/08/19 17:46 Not Reportable 04/08/19 17:46 Not Reportable 04/08/19 17:46 Not Reportable 04/08/19 17:46 1+ 04/08/19 17:46 Not Reportable 04/08/19 17:46 Not Reportable 04/08/19 17:46 Not Reportable 04/08/19 17:46 Not Reportable 04/08/19 17:46 Not Reportable 04/08/19 17:46 Not Reportable 04/08/19 17:46 Not Reportable 04/08/19 17:46 Not Reportable 04/08/19 17:46 Not Reportable 04/08/19 17:46 Not Reportable 04/08/19 17:46 Not Reportable 04/08/19 17:46 Not Reportable 04/08/19 17:46 Not Reportable 04/08/19 17:46 Not Reportable 04/08/19 17:46 Not Reportable 04/08/19 17:46 Acanthocytes (Spur) Not Reportable 04/08/19 17:46 Rouleaux Not Reportable 04/08/19 17:46 Not Reportable 04/08/19 17:46 Not Reportable 04/08/19 17:46 Not Reportable 04/08/19 17:46 ESR 47 mm/Hr (0-20) 04/08/19 17:46 Not Reportable 04/08/19 17:46 Hem Pathologist Commnt No 04/08/19 17:46 see below 04/08/19 17:46 Sodium 138 mmol/L (137-145) 04/09/19 15:00 Potassium 4.4 mmol/L (3.6-5.0) 04/09/19 15:00 Chloride 98.4 mmol/L (98-107) 04/09/19 15:00 Carbon Dioxide 25 mmol/L (22-30) 04/09/19 15:00 19 mmol/L 04/09/19 15:00 BUN 16 mg/dL (7-17) 04/09/19 15:00 0.8 mg/dL (0.7-1.2) 04/09/19 15:00 Estimated GFR > 60 ml/min 04/09/19 15:00 20 % 04/09/19 15:00 Glucose 72 mg/dL (65-100) 04/09/19 15:00 Lactic Acid 0.90 mmol/L (0.7-2.0) 04/08/19 21:48 Calcium 8.7 mg/dL (8.4-10.2) 04/09/19 15:00 0.40 mg/dL (0.1-1.2) 04/09/19 15:00 AST 21 units/L (5-40) 04/09/19 15:00 ALT 21 units/L (7-56) 04/09/19 15:00 81 units/L (35-129) 04/09/19 15:00 29.0 umol/L (25-60) 04/06/19 20:05 19 units/L (30-135) L 04/06/19 20:05 < 0.010 ng/mL (0.00-0.029) 04/06/19 20:05 5.10 mg/dL (0.00-1.30) H 04/08/19 17:46 6.2 g/dL (6.3-8.2) L 04/09/19 15:00 3.6 g/dL (3.9-5) L 04/09/19 15:00 1.4 % 04/09/19 15:00 TSH 1.680 mlU/mL (0.270-4.200) 04/08/19 17:46 Free T4 1.20 ng/dL (0.76-1.46) 04/08/19 17:46 Yellow (Yellow) 04/06/19 22:40 Clear (Clear) 04/06/19 22:40 8.0 (5.0-7.0) H 04/06/19 22:40 Ur Specific [place] 1.011 (1.003-1.030) 04/06/19 22:40 <15 mg/dl mg/dL (Negative) 04/06/19 22:40 50 mg/dL (Negative) 04/06/19 22:40 Neg mg/dL (Negative) 04/06/19 22:40 Neg (Negative) 04/06/19 22:40 Neg (Negative) 04/06/19 22:40 Neg (Negative) 04/06/19 22:40 < 2.0 mg/dL (<2.0) 04/06/19 22:40 Ur Leukocyte Esterase Neg (Negative) 04/06/19 22:40 1.0 /HPF (0.0-6.0) 04/06/19 22:40 2.0 /HPF (0.0-6.0) 04/06/19 22:40 U Epithel Cells (Auto) < 1.0 /HPF (0-13.0) 04/06/19 22:40 Hyaline Casts 1 /LPF 04/06/19 22:40 Salicylates < 0.3 mg/dL (2.8-20.0) L 04/06/19 20:04 Presumptive negative 04/06/19 22:40 Presumptive negative 04/06/19 22:40 Acetaminophen < 5.0 ug/mL (10.0-30.0) L 04/06/19 20:05 Ur Barbiturates Screen Presumptive negative 04/06/19 22:40 Valproic Acid 2.8 ug/mL (50-100) L 04/08/19 07:33 Ur Phencyclidine Scrn Presumptive negative 04/06/19 22:40 Ur Amphetamines Screen Presumptive negative 04/06/19 22:40 U Benzodiazepines Scrn Presumptive negative 04/06/19 22:40 Presumptive negative 04/06/19 22:40 U Marijuana (THC) Screen Presumptive negative 04/06/19 22:40 Disclamer 04/06/19 22:40 Plasma/Serum Alcohol < 0.01 % (0-0.07) 04/06/19 20:05 HIV 1&2 Antibody Rapid Non react (Non React) 04/08/19 17:46 Non react (Non React) 04/08/19 17:46 Active Medications - Current Medications Current Medications: Generic Name Dose Route Start Last Admin Trade Name Freq PRN Reason Stop Dose Admin Albuterol 2.5 mg 04/08/19 17:09 Proventil IH Q4H PRN Shortness Of Breath Amlodipine Besylate 10 mg 04/12/19 09:00 Norvasc PO DAILY MADELINE Calcium/Vitamin D 1 each 04/07/19 22:00 04/11/19 22:14 Oysco D 500 Mg-200 Unit PO 1 each BID MADELINE Administration Enoxaparin Sodium 40 mg 04/10/19 22:00 04/11/19 22:13 Lovenox SUB-Q 40 mg QDAY@2200 MADELINE Administration Folic Acid 1 mg 04/07/19 22:00 04/11/19 10:56 Folvite PO 1 mg QDAY MADELINE Administration Gabapentin 300 mg 04/07/19 22:00 04/12/19 05:24 Neurontin PO 300 mg Q8HR MADELINE Administration Hydralazine HCl 10 mg 04/08/19 17:13 04/12/19 06:11 Apresoline IV 10 mg Q6H PRN Administration SBP > 155 Melatonin 5 mg 04/07/19 23:00 04/11/19 22:13 Melatonin PO 5 mg QHS MADELINE Administration Metoprolol Tartrate 50 mg 04/08/19 10:00 04/11/19 22:12 Lopressor PO 50 mg BID MADELINE Administration Olanzapine 5 mg 04/10/19 22:00 04/11/19 22:15 Zyprexa Zydis PO 5 mg HS MADELINE Administration Ondansetron HCl 4 mg 04/08/19 17:09 Zofran IV Q8H PRN Nausea And Vomiting Prednisone 40 mg 04/12/19 12:00 Deltasone PO BID MADELINE Sodium Chloride 10 ml 04/08/19 22:00 04/11/19 22:14 Sodium Chloride Flush Syringe 10 Ml IV 10 ml BID MADELINE Administration Sodium Chloride 10 ml 04/08/19 17:09 Sodium Chloride Flush Syringe 10 Ml IV PRN PRN LINE FLUSH Thiamine HCl 100 mg 04/07/19 22:00 04/11/19 10:56 Vitamin B-1 PO 100 mg QDAY MADELINE Administration
--- NOTE | 2019-04-12 12:45 | Progress Note ---
Subjective - Reason for Consult Consult date: 04/12/19 Reason for consult: Psychiatric Follow-up Evaluation - Chief Complaint Chief complaint: "I'm very anxious." Patient is a 48 y.o. female presented to the ER for bizarre behavior. Today the patient is somewhat cooperative but anxious during the assessment. Patient is very suspicious of others/things. She continues to have a poor appetite. Per patient/sitter patient only had a few spoons of grits for breakfast this morning. Patient presents with tangential/circumstantial thought process. Patient continues to be somewhat noncompliant with treatment/medication ( refusing blood collection/medication) . She denies SI/HI's and AVH's. Paranoid delusions are noted. Mental Status Exam - Vital signs Last Vital Signs Temp 98.7 F 04/12/19 11:30 Pulse 79 04/12/19 11:30 Resp 20 04/12/19 11:30 BP 125/67 04/12/19 11:30 Pulse Ox 100 04/12/19 11:30 - Exam Narrative exam: Mental Status Exam: Appearance: calm, somewhat cooperative Behavior: regular eye contact Speech: somewhat hyper verbal, regular tone Mood: "very anxious and not well" Affect: congruent to mood Thought Process: tangential Thought Content: denies SI/HI's and AVH's; paranoid delusions Motor Activity: laying in the bed Cognition: A/O x 3 Insight: variable Judgment: variable Assessment and Plan Impression: 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 Today the patient was tangent and disorganized during the assessment. UDS is negative. DDx: Delirium Medical: The patient has a hx of Lupus per collateral information from her . Recommendation/Plan: 1. Continue 1013. 2. Continue Melatonin 5 mg PO HS for sleep, and Zyprexa Zydis ODT 5 mg PO HS for psychosis. Attempted to discuss possible metabolic side effects of Zyprexa Zydis with the patient. Monitor the patient's oral intake. 3. Encouraged compliance with treatment. Disposition: Proper disposition will be determined once the patient is medically clear. Will staff with Dr Kylie Carson.
[2019-04-12] MEDS: SOLU-Medrol IV SCH (14:20)
[2019-04-12] MEDS: FOLVITE PO SCH (15:36)
[2019-04-12] MEDS: OYSCO D 500 MG-200 UNIT PO SCH ×2 (16:56→21:38)
[2019-04-12] MEDS: SODIUM CHLORIDE FLUSH SYRINGE 10 ML IV SCH ×2 (16:56→21:39)
[2019-04-12] MEDS: DELTASONE PO SCH ×2 (16:56→21:36)
[2019-04-12] MEDS: VITAMIN B-1 PO SCH (16:56)
[2019-04-12] MEDS: MELATONIN PO SCH (21:35)
[2019-04-12] MEDS: LOVENOX SUB-Q SCH (21:39)
[2019-04-13] MEDS: NEURONTIN PO SCH ×3 (05:20→23:02)
[2019-04-13] MEDS: APRESOLINE IV PRN ×2 (05:21→18:08)
--- NOTE | 2019-04-13 09:48 | Progress Note ---
Assessment and Plan Assessment and plan: Acute encephalopathy. 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 Patient was previously hospitalized at [facility] earlier this month. We will attempt to obtain all records from [facility]. patient is Solumedrol 60 mg IV b.i.d. Neurology and psych consult appreciated. 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 Disposition; continue inpatient care on 1012, If the patient is eating patient is ok for psychiatry inpatient transfer. History Interval history: Patient was seen and evaluated this morning, patient was confused and paranoid. I have discussed the management problem on the phone with her yesterday and with her mother was in the room this morning. Patient was alert and oriented but still paranoid. Hospitalist Physical - Physical exam Narrative exam: Not in cardiopulmonary distress. The patient appeared well nourished and normally developed. Vital signs as documented. Head exam is unremarkable. No scleral icterus . Neck is without jugular venous distension, thyromegaly, or carotid bruits. Lungs are clear to auscultation. Cardiac exam reveals regular rate and Rhythm. Abdominal exam reveals normal bowel sounds, no masses, no organomegaly and no aortic enlargement. Extremities are nonedematous and both femoral and pedal pulses are normal. [employer]: Alert and oriented 3. 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 - Constitutional Vitals: Temp Pulse Resp BP Pulse Ox 98.6 F 80 20 150/75 100 04/13/19 06:00 04/13/19 06:00 04/13/19 06:00 04/13/19 06:00 04/13/19 06:00 General appearance: Present: mild distress Results - Labs CBC & Chem 7: 04/08/19 17:46 04/09/19 15:00 Labs: Laboratory Last Values WBC 3.8 K/mm3 (4.5-11.0) L 04/08/19 17:46 RBC 3.04 M/mm3 (3.65-5.03) L 04/08/19 17:46 Hgb 9.7 gm/dl (10.1-14.3) L 04/08/19 17:46 Hct 31.2 % (30.3-42.9) 04/08/19 17:46 MCV 103 fl (79-97) H 04/08/19 17:46 MCH 32 pg (28-32) 04/08/19 17:46 MCHC 31 % (30-34) 04/08/19 17:46 RDW 23.2 % (13.2-15.2) H 04/08/19 17:46 Plt Count 291 K/mm3 (140-440) 04/08/19 17:46 Lymph % (Auto) 5.7 % (13.4-35.0) L 04/06/19 20:05 [place] % (Auto) 3.4 % (0.0-7.3) 04/06/19 20:05 Eos % (Auto) 0.0 % (0.0-4.3) 04/06/19 20:05 Baso % (Auto) 0.9 % (0.0-1.8) 04/06/19 20:05 Lymph # 0.3 K/mm3 (1.2-5.4) L 04/06/19 20:05 [place] # 0.2 K/mm3 (0.0-0.8) 04/06/19 20:05 Eos # 0.0 K/mm3 (0.0-0.4) 04/06/19 20:05 Baso # 0.0 K/mm3 (0.0-0.1) 04/06/19 20:05 Add Manual Diff Complete 04/08/19 17:46 Total Counted 100 04/08/19 17:46 Seg Neutrophils % 90.0 % (40.0-70.0) H 04/06/19 20:05 Seg Neuts % (Manual) 74.0 % (40.0-70.0) H 04/08/19 17:46 0 % 04/08/19 17:46 18.0 % (13.4-35.0) 04/08/19 17:46 Reactive Lymphs % (Man) 0 % 04/08/19 17:46 8.0 % (0.0-7.3) H 04/08/19 17:46 0 % (0.0-4.3) 04/08/19 17:46 0 % (0.0-1.8) 04/08/19 17:46 0 % 04/08/19 17:46 0 % 04/08/19 17:46 0 % 04/08/19 17:46 0 % 04/08/19 17:46 Nucleated RBC % 2.0 % (0.0-0.9) H 04/08/19 17:46 Seg Neutrophils # 4.7 K/mm3 (1.8-7.7) 04/06/19 20:05 Seg Neutrophils # Man 2.8 K/mm3 (1.8-7.7) 04/08/19 17:46 Band Neutrophils # 0.0 K/mm3 04/08/19 17:46 0.7 K/mm3 (1.2-5.4) L 04/08/19 17:46 Abs React Lymphs (Man) 0.0 K/mm3 04/08/19 17:46 0.3 K/mm3 (0.0-0.8) 04/08/19 17:46 0.0 K/mm3 (0.0-0.4) 04/08/19 17:46 0.0 K/mm3 (0.0-0.1) 04/08/19 17:46 0.0 K/mm3 04/08/19 17:46 0.0 K/mm3 04/08/19 17:46 0.0 K/mm3 04/08/19 17:46 Blast Cells # 0.0 K/mm3 04/08/19 17:46 WBC Morphology Not Reportable 04/08/19 17:46 WBC Morphology TNR 04/08/19 17:46 Hypersegmented Neuts Not Reportable 04/08/19 17:46 Hyposegmented Neuts Not Reportable 04/08/19 17:46 Hypogranular Neuts Not Reportable 04/08/19 17:46 Not Reportable 04/08/19 17:46 Not Reportable 04/08/19 17:46 Not Reportable 04/08/19 17:46 Not Reportable 04/08/19 17:46 Not Reportable 04/08/19 17:46 Not Reportable 04/08/19 17:46 Consistent w auto 04/08/19 17:46 Not Reportable 04/08/19 17:46 Plt Clumps, EDTA Not Reportable 04/08/19 17:46 Not Reportable 04/08/19 17:46 Not Reportable 04/08/19 17:46 Not Reportable 04/08/19 17:46 Plt Morphology Comment Not Reportable 04/08/19 17:46 RBC Morphology Not Reportable 04/08/19 17:46 Dimorphic RBCs Not Reportable 04/08/19 17:46 Not Reportable 04/08/19 17:46 Not Reportable 04/08/19 17:46 Not Reportable 04/08/19 17:46 1+ 04/08/19 17:46 Not Reportable 04/08/19 17:46 Not Reportable 04/08/19 17:46 Not Reportable 04/08/19 17:46 Not Reportable 04/08/19 17:46 Not Reportable 04/08/19 17:46 Not Reportable 04/08/19 17:46 Not Reportable 04/08/19 17:46 Not Reportable 04/08/19 17:46 Not Reportable 04/08/19 17:46 Not Reportable 04/08/19 17:46 Not Reportable 04/08/19 17:46 Not Reportable 04/08/19 17:46 Not Reportable 04/08/19 17:46 Not Reportable 04/08/19 17:46 Not Reportable 04/08/19 17:46 Acanthocytes (Spur) Not Reportable 04/08/19 17:46 Rouleaux Not Reportable 04/08/19 17:46 Not Reportable 04/08/19 17:46 Not Reportable 04/08/19 17:46 Not Reportable 04/08/19 17:46 ESR 47 mm/Hr (0-20) 04/08/19 17:46 Not Reportable 04/08/19 17:46 Hem Pathologist Commnt No 04/08/19 17:46 see below 04/08/19 17:46 Sodium 138 mmol/L (137-145) 04/09/19 15:00 Potassium 4.4 mmol/L (3.6-5.0) 04/09/19 15:00 Chloride 98.4 mmol/L (98-107) 04/09/19 15:00 Carbon Dioxide 25 mmol/L (22-30) 04/09/19 15:00 19 mmol/L 04/09/19 15:00 BUN 16 mg/dL (7-17) 04/09/19 15:00 0.8 mg/dL (0.7-1.2) 04/09/19 15:00 Estimated GFR > 60 ml/min 04/09/19 15:00 20 % 04/09/19 15:00 Glucose 72 mg/dL (65-100) 04/09/19 15:00 Lactic Acid 0.90 mmol/L (0.7-2.0) 04/08/19 21:48 Calcium 8.7 mg/dL (8.4-10.2) 04/09/19 15:00 0.40 mg/dL (0.1-1.2) 04/09/19 15:00 AST 21 units/L (5-40) 04/09/19 15:00 ALT 21 units/L (7-56) 04/09/19 15:00 81 units/L (35-129) 04/09/19 15:00 29.0 umol/L (25-60) 04/06/19 20:05 19 units/L (30-135) L 04/06/19 20:05 < 0.010 ng/mL (0.00-0.029) 04/06/19 20:05 5.10 mg/dL (0.00-1.30) H 04/08/19 17:46 6.2 g/dL (6.3-8.2) L 04/09/19 15:00 3.6 g/dL (3.9-5) L 04/09/19 15:00 1.4 % 04/09/19 15:00 TSH 1.680 mlU/mL (0.270-4.200) 04/08/19 17:46 Free T4 1.20 ng/dL (0.76-1.46) 04/08/19 17:46 Yellow (Yellow) 04/06/19 22:40 Clear (Clear) 04/06/19 22:40 8.0 (5.0-7.0) H 04/06/19 22:40 Ur Specific [place] 1.011 (1.003-1.030) 04/06/19 22:40 <15 mg/dl mg/dL (Negative) 04/06/19 22:40 50 mg/dL (Negative) 04/06/19 22:40 Neg mg/dL (Negative) 04/06/19 22:40 Neg (Negative) 04/06/19 22:40 Neg (Negative) 04/06/19 22:40 Neg (Negative) 04/06/19 22:40 < 2.0 mg/dL (<2.0) 04/06/19 22:40 Ur Leukocyte Esterase Neg (Negative) 04/06/19 22:40 1.0 /HPF (0.0-6.0) 04/06/19 22:40 2.0 /HPF (0.0-6.0) 04/06/19 22:40 U Epithel Cells (Auto) < 1.0 /HPF (0-13.0) 04/06/19 22:40 Hyaline Casts 1 /LPF 04/06/19 22:40 Salicylates < 0.3 mg/dL (2.8-20.0) L 04/06/19 20:04 Presumptive negative 04/06/19 22:40 Presumptive negative 04/06/19 22:40 Acetaminophen < 5.0 ug/mL (10.0-30.0) L 04/06/19 20:05 Ur Barbiturates Screen Presumptive negative 04/06/19 22:40 Valproic Acid 2.8 ug/mL (50-100) L 04/08/19 07:33 Ur Phencyclidine Scrn Presumptive negative 04/06/19 22:40 Ur Amphetamines Screen Presumptive negative 04/06/19 22:40 U Benzodiazepines Scrn Presumptive negative 04/06/19 22:40 Presumptive negative 04/06/19 22:40 U Marijuana (THC) Screen Presumptive negative 04/06/19 22:40 Disclamer 04/06/19 22:40 Plasma/Serum Alcohol < 0.01 % (0-0.07) 04/06/19 20:05 Double Strand DNA Ab 52 IU/mL (<=4) H 04/08/19 17:46 HIV 1&2 Antibody Rapid Non react (Non React) 04/08/19 17:46 Non react (Non React) 04/08/19 17:46 Active Medications - Current Medications Current Medications: Generic Name Dose Route Start Last Admin Trade Name Freq PRN Reason Stop Dose Admin Albuterol 2.5 mg 04/08/19 17:09 Proventil IH Q4H PRN Shortness Of Breath Amlodipine Besylate 10 mg 04/12/19 09:00 04/12/19 09:00 Norvasc PO Not Given DAILY [facility] Calcium/Vitamin D 1 each 04/07/19 22:00 04/12/19 21:38 Oysco D 500 Mg-200 Unit PO 1 each BID MADELINE Administration Enoxaparin Sodium 40 mg 04/10/19 22:00 04/12/19 21:39 Lovenox SUB-Q 40 mg QDAY@2200 MADELINE Administration Folic Acid 1 mg 04/07/19 22:00 04/12/19 15:36 Folvite PO Not Given QDAY [facility] Gabapentin 300 mg 04/07/19 22:00 04/13/19 05:20 Neurontin PO 300 mg Q8HR MADELINE Administration Hydralazine HCl 10 mg 04/08/19 17:13 04/13/19 05:21 Apresoline IV 10 mg Q6H PRN Administration SBP > 155 Melatonin 5 mg 04/07/19 23:00 04/12/19 21:35 Melatonin PO 5 mg QHS MADELINE Administration Metoprolol Tartrate 50 mg 04/08/19 10:00 04/12/19 21:35 Lopressor PO 50 mg BID MADELINE Administration Olanzapine 5 mg 04/10/19 22:00 04/12/19 21:35 Zyprexa Zydis PO 5 mg HS MADELINE Administration Ondansetron HCl 4 mg 04/08/19 17:09 Zofran IV Q8H PRN Nausea And Vomiting Prednisone 40 mg 04/12/19 13:00 04/12/19 21:36 Deltasone PO 40 mg BID MADELINE Administration Sodium Chloride 10 ml 04/08/19 22:00 04/12/19 21:39 Sodium Chloride Flush Syringe 10 Ml IV 10 ml BID MADELINE Administration Sodium Chloride 10 ml 04/08/19 17:09 Sodium Chloride Flush Syringe 10 Ml IV PRN PRN LINE FLUSH Thiamine HCl 100 mg 04/07/19 22:00 04/12/19 16:56 Vitamin B-1 PO Not Given QDAY MADELINE
[2019-04-13] MEDS: LOPRESSOR PO SCH ×2 (10:07→23:04)
[2019-04-13] MEDS: OYSCO D 500 MG-200 UNIT PO SCH ×2 (10:07→23:02)
[2019-04-13] MEDS: FOLVITE PO SCH (10:07)
[2019-04-13] MEDS: NORVASC PO SCH (10:07)
[2019-04-13] MEDS: VITAMIN B-1 PO SCH (10:07)
[2019-04-13] MEDS: DELTASONE PO SCH ×2 (10:07→23:02)
[2019-04-13] MEDS: SODIUM CHLORIDE FLUSH SYRINGE 10 ML IV SCH ×2 (10:08→23:01)
--- NOTE | 2019-04-13 13:16 | Progress Note ---
Subjective - Reason for Consult Consult date: 04/13/19 Reason for consult: Psychiatry Follow-up - Chief Complaint Chief complaint: "I feel much better" 48 y.o. female presented to the ER for bizarre behavior. Today the patient is calm and cooperative during the assessment. She was more organized and willing to answer questions. She was observed eating her lunch during the interview. Per collateral information from her Mr Duglas Miller, he stated that his is getting better overall. He stated that her mental health is a lot better after spending several hours with her last night. He asked that we can provide the patient with a referral for outpatient osy services once discharged. The patient denies SI/HI's and AVH's. She have been compliant with her medication per the MAR. She denies any side effects of her medications. Mental Status Exam - Vital signs Last Vital Signs Temp 99.2 F 04/13/19 09:48 Pulse 116 H 04/13/19 09:48 Resp 18 04/13/19 09:48 BP 138/67 04/13/19 09:48 Pulse Ox 100 04/13/19 09:48 - Exam Narrative exam: MSE: Appearance: calm, cooperative Behavior: regular eye contact Speech: regular rate and tone Mood: "okay" Affect: congruent to mood Thought Process: circumstantial Thought Content: denies SI/HI's and AVH's Motor Activity: sitting up in the bed Cognition: A/O x 3 Insight: fair Judgment: fair Assessment and Plan Impression: 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 Today the patient was calm and cooperative during the assessment. UDS is negative. The patient's mental status have improved. DDx: Delirium Medical: The patient has a hx of Lopus per collateral information from her . Recommendation/Plan: The patient's 1013 expires today and will not be extended. Continue Melatonin 5 mg PO HS for sleep and Zyoexa Zydis ODT 5 mg PO HS for psychosis. Discussed possible metabolic side effects of Zyprexa with the patient and her , they both verbalized understanding. Dispo: The patient was given outpatient referrals for [facility] and [facility]. Staffed with Dr Kylie Carson.
--- NOTE | 2019-04-13 13:31 | Progress Note ---
Subjective Date of service: 04/13/19 Interval history: c reactive protein is not really that high given the dx of lupus the patient is eating and making good sense now w/o any confusion the mother of the patient from [place] is actually here in the room and spoke with her... 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8 L MCV 104 H RDW 24.7 H Lymph % (Auto) 5.7 L Lymph # 0.3 L Seg Neutrophils % 90.0 H Seg Neuts % (Manual) Monocytes % (Manual) Nucleated RBC % Lymphocytes # (Manual) Chloride 97.9 L Glucose 161 H Lactic Acid Total Creatine Kinase 19 L C-Reactive Protein Total Protein Albumin 3.6 L Urine pH Salicylates < 0.3 L Acetaminophen Valproic Acid Double Strand DNA Ab 04/06/19 04/06/19 04/06/19 20:05 20:05 22:40 WBC RBC Hgb MCV RDW Lymph % (Auto) Lymph # Seg Neutrophils % Seg Neuts % (Manual) Monocytes % (Manual) Nucleated RBC % Lymphocytes # (Manual) Chloride Glucose Lactic Acid 2.80 H* Total Creatine Kinase C-Reactive Protein Total Protein Albumin Urine pH 8.0 H Salicylates Acetaminophen < 5.0 L Valproic Acid Double Strand DNA Ab 04/08/19 04/08/19 04/08/19 07:33 17:46 17:46 WBC 3.8 L RBC 3.04 L Hgb 9.7 L MCV 103 H RDW 23.2 H Lymph % (Auto) Lymph # Seg Neutrophils % Seg Neuts % (Manual) 74.0 H Monocytes % (Manual) 8.0 H Nucleated RBC % 2.0 H Lymphocytes # (Manual) 0.7 L Chloride Glucose Lactic Acid Total Creatine Kinase C-Reactive Protein 5.10 H Total Protein Albumin Urine pH Salicylates Acetaminophen Valproic Acid 2.8 L Double Strand DNA Ab 04/08/19 04/09/19 17:46 15:00 WBC RBC Hgb MCV RDW Lymph % (Auto) Lymph # Seg Neutrophils % Seg Neuts % (Manual) Monocytes % (Manual) Nucleated RBC % Lymphocytes # (Manual) Chloride Glucose Lactic Acid Total Creatine Kinase C-Reactive Protein Total Protein 6.2 L Albumin 3.6 L Urine pH Salicylates Acetaminophen Valproic Acid Double Strand DNA Ab 52 H
[2019-04-13] MEDS: MELATONIN PO SCH (23:02)
[2019-04-13] MEDS: LOVENOX SUB-Q SCH (23:03)
[2019-04-14] MEDS: DELTASONE PO SCH ×4 (04:29→22:00)
[2019-04-14] MEDS: LOVENOX SUB-Q SCH ×2 (04:30→22:00)
[2019-04-14] MEDS: NEURONTIN PO SCH ×3 (04:31→22:00)
[2019-04-14] MEDS: OYSCO D 500 MG-200 UNIT PO SCH ×4 (04:31→22:00)
[2019-04-14] MEDS: SODIUM CHLORIDE FLUSH SYRINGE 10 ML IV SCH ×3 (04:31→22:00)
[2019-04-14] MEDS: LOPRESSOR PO SCH ×4 (04:32→22:00)
[2019-04-14] MEDS: APRESOLINE IV PRN (07:54)
[2019-04-14 11:44] LABS: ANA Screen, IFA Positive (Negative)
--- NOTE | 2019-04-14 12:49 | Progress Note ---
Assessment and Plan Assessment and plan: Acute encephalopathy. 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 Patient was previously hospitalized at [facility] earlier this month. We will attempt to obtain all records from [facility]. patient is Solumedrol 60 mg IV b.i.d. Neurology and psych consult appreciated. 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 Disposition; continue inpatient care, asks psych to evaluate her today. History Interval history: Patient was seen and evaluated this morning, patient was confused and paranoid. She was ok yesterday and the plan was to DC but this morning the patient is confused and not her self. Refused her meds. Discussed the management plan with the patient has been in mother. Hospitalist Physical - Physical exam Narrative exam: Not in cardiopulmonary distress. The patient appeared well nourished and normally developed. Vital signs as documented. Head exam is unremarkable. No scleral icterus . Neck is without jugular venous distension, thyromegaly, or carotid bruits. Lungs are clear to auscultation. Cardiac exam reveals regular rate and Rhythm. Abdominal exam reveals normal bowel sounds, no masses, no organomegaly and no aortic enlargement. Extremities are nonedematous and both femoral and pedal pulses are normal. BEREAVEMENT COUNSELOR: Alert and oriented 3. 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 - Constitutional Vitals: Temp Pulse Resp BP Pulse Ox 97.9 F 84 20 189/98 100 04/14/19 06:21 04/14/19 07:54 04/14/19 06:21 04/14/19 07:54 04/14/19 06:21 General appearance: Present: mild distress Results - Labs CBC & Chem 7: 04/08/19 17:46 04/09/19 15:00 Labs: Laboratory Last Values WBC 3.8 K/mm3 (4.5-11.0) L 04/08/19 17:46 RBC 3.04 M/mm3 (3.65-5.03) L 04/08/19 17:46 Hgb 9.7 gm/dl (10.1-14.3) L 04/08/19 17:46 Hct 31.2 % (30.3-42.9) 04/08/19 17:46 MCV 103 fl (79-97) H 04/08/19 17:46 MCH 32 pg (28-32) 04/08/19 17:46 MCHC 31 % (30-34) 04/08/19 17:46 RDW 23.2 % (13.2-15.2) H 04/08/19 17:46 Plt Count 291 K/mm3 (140-440) 04/08/19 17:46 Lymph % (Auto) 5.7 % (13.4-35.0) L 04/06/19 20:05 Gray % (Auto) 3.4 % (0.0-7.3) 04/06/19 20:05 Eos % (Auto) 0.0 % (0.0-4.3) 04/06/19 20:05 Baso % (Auto) 0.9 % (0.0-1.8) 04/06/19 20:05 Lymph # 0.3 K/mm3 (1.2-5.4) L 04/06/19 20:05 Gray # 0.2 K/mm3 (0.0-0.8) 04/06/19 20:05 Eos # 0.0 K/mm3 (0.0-0.4) 04/06/19 20:05 Baso # 0.0 K/mm3 (0.0-0.1) 04/06/19 20:05 Add Manual Diff Complete 04/08/19 17:46 Total Counted 100 04/08/19 17:46 Seg Neutrophils % 90.0 % (40.0-70.0) H 04/06/19 20:05 Seg Neuts % (Manual) 74.0 % (40.0-70.0) H 04/08/19 17:46 0 % 04/08/19 17:46 18.0 % (13.4-35.0) 04/08/19 17:46 Reactive Lymphs % (Man) 0 % 04/08/19 17:46 8.0 % (0.0-7.3) H 04/08/19 17:46 0 % (0.0-4.3) 04/08/19 17:46 0 % (0.0-1.8) 04/08/19 17:46 0 % 04/08/19 17:46 0 % 04/08/19 17:46 0 % 04/08/19 17:46 0 % 04/08/19 17:46 Nucleated RBC % 2.0 % (0.0-0.9) H 04/08/19 17:46 Seg Neutrophils # 4.7 K/mm3 (1.8-7.7) 04/06/19 20:05 Seg Neutrophils # Man 2.8 K/mm3 (1.8-7.7) 04/08/19 17:46 Band Neutrophils # 0.0 K/mm3 04/08/19 17:46 0.7 K/mm3 (1.2-5.4) L 04/08/19 17:46 Abs React Lymphs (Man) 0.0 K/mm3 04/08/19 17:46 0.3 K/mm3 (0.0-0.8) 04/08/19 17:46 0.0 K/mm3 (0.0-0.4) 04/08/19 17:46 0.0 K/mm3 (0.0-0.1) 04/08/19 17:46 0.0 K/mm3 04/08/19 17:46 0.0 K/mm3 04/08/19 17:46 0.0 K/mm3 04/08/19 17:46 Blast Cells # 0.0 K/mm3 04/08/19 17:46 WBC Morphology Not Reportable 04/08/19 17:46 WBC Morphology TNR 04/08/19 17:46 Hypersegmented Neuts Not Reportable 04/08/19 17:46 Hyposegmented Neuts Not Reportable 04/08/19 17:46 Hypogranular Neuts Not Reportable 04/08/19 17:46 Not Reportable 04/08/19 17:46 Not Reportable 04/08/19 17:46 Not Reportable 04/08/19 17:46 Not Reportable 04/08/19 17:46 Not Reportable 04/08/19 17:46 Not Reportable 04/08/19 17:46 Consistent w auto 04/08/19 17:46 Not Reportable 04/08/19 17:46 Plt Clumps, EDTA Not Reportable 04/08/19 17:46 Not Reportable 04/08/19 17:46 Not Reportable 04/08/19 17:46 Not Reportable 04/08/19 17:46 Plt Morphology Comment Not Reportable 04/08/19 17:46 RBC Morphology Not Reportable 04/08/19 17:46 Dimorphic RBCs Not Reportable 04/08/19 17:46 Not Reportable 04/08/19 17:46 Not Reportable 04/08/19 17:46 Not Reportable 04/08/19 17:46 1+ 04/08/19 17:46 Not Reportable 04/08/19 17:46 Not Reportable 04/08/19 17:46 Not Reportable 04/08/19 17:46 Not Reportable 04/08/19 17:46 Not Reportable 04/08/19 17:46 Not Reportable 04/08/19 17:46 Not Reportable 04/08/19 17:46 Not Reportable 04/08/19 17:46 Not Reportable 04/08/19 17:46 Not Reportable 04/08/19 17:46 Not Reportable 04/08/19 17:46 Not Reportable 04/08/19 17:46 Not Reportable 04/08/19 17:46 Not Reportable 04/08/19 17:46 Not Reportable 04/08/19 17:46 Acanthocytes (Spur) Not Reportable 04/08/19 17:46 Rouleaux Not Reportable 04/08/19 17:46 Not Reportable 04/08/19 17:46 Not Reportable 04/08/19 17:46 Not Reportable 04/08/19 17:46 ESR 47 mm/Hr (0-20) 04/08/19 17:46 Not Reportable 04/08/19 17:46 Hem Pathologist Commnt No 04/08/19 17:46 see below 04/08/19 17:46 Sodium 138 mmol/L (137-145) 04/09/19 15:00 Potassium 4.4 mmol/L (3.6-5.0) 04/09/19 15:00 Chloride 98.4 mmol/L (98-107) 04/09/19 15:00 Carbon Dioxide 25 mmol/L (22-30) 04/09/19 15:00 19 mmol/L 04/09/19 15:00 BUN 16 mg/dL (7-17) 04/09/19 15:00 0.8 mg/dL (0.7-1.2) 04/09/19 15:00 Estimated GFR > 60 ml/min 04/09/19 15:00 20 % 04/09/19 15:00 Glucose 72 mg/dL (65-100) 04/09/19 15:00 Lactic Acid 0.90 mmol/L (0.7-2.0) 04/08/19 21:48 Calcium 8.7 mg/dL (8.4-10.2) 04/09/19 15:00 0.40 mg/dL (0.1-1.2) 04/09/19 15:00 AST 21 units/L (5-40) 04/09/19 15:00 ALT 21 units/L (7-56) 04/09/19 15:00 81 units/L (35-129) 04/09/19 15:00 29.0 umol/L (25-60) 04/06/19 20:05 19 units/L (30-135) L 04/06/19 20:05 < 0.010 ng/mL (0.00-0.029) 04/06/19 20:05 5.10 mg/dL (0.00-1.30) H 04/08/19 17:46 6.2 g/dL (6.3-8.2) L 04/09/19 15:00 3.6 g/dL (3.9-5) L 04/09/19 15:00 1.4 % 04/09/19 15:00 TSH 1.680 mlU/mL (0.270-4.200) 04/08/19 17:46 Free T4 1.20 ng/dL (0.76-1.46) 04/08/19 17:46 Yellow (Yellow) 04/06/19 22:40 Clear (Clear) 04/06/19 22:40 8.0 (5.0-7.0) H 04/06/19 22:40 Ur Specific [place] 1.011 (1.003-1.030) 04/06/19 22:40 <15 mg/dl mg/dL (Negative) 04/06/19 22:40 50 mg/dL (Negative) 04/06/19 22:40 Neg mg/dL (Negative) 04/06/19 22:40 Neg (Negative) 04/06/19 22:40 Neg (Negative) 04/06/19 22:40 Neg (Negative) 04/06/19 22:40 < 2.0 mg/dL (<2.0) 04/06/19 22:40 Ur Leukocyte Esterase Neg (Negative) 04/06/19 22:40 1.0 /HPF (0.0-6.0) 04/06/19 22:40 2.0 /HPF (0.0-6.0) 04/06/19 22:40 U Epithel Cells (Auto) < 1.0 /HPF (0-13.0) 04/06/19 22:40 Hyaline Casts 1 /LPF 04/06/19 22:40 Salicylates < 0.3 mg/dL (2.8-20.0) L 04/06/19 20:04 Presumptive negative 04/06/19 22:40 Presumptive negative 04/06/19 22:40 Acetaminophen < 5.0 ug/mL (10.0-30.0) L 04/06/19 20:05 Ur Barbiturates Screen Presumptive negative 04/06/19 22:40 Valproic Acid 2.8 ug/mL (50-100) L 04/08/19 07:33 Ur Phencyclidine Scrn Presumptive negative 04/06/19 22:40 Ur Amphetamines Screen Presumptive negative 04/06/19 22:40 U Benzodiazepines Scrn Presumptive negative 04/06/19 22:40 Presumptive negative 04/06/19 22:40 U Marijuana (THC) Screen Presumptive negative 04/06/19 22:40 Disclamer 04/06/19 22:40 Plasma/Serum Alcohol < 0.01 % (0-0.07) 04/06/19 20:05 JOSE ALFREDO Screen Positive (Negative) H 04/08/19 17:46 JOSE ALFREDO Titer 1:160 (Negative) H 04/08/19 17:46 JOSE ALFREDO Pattern Homogeneous 04/08/19 17:46 Double Strand DNA Ab 52 IU/mL (<=4) H 04/08/19 17:46 HIV 1&2 Antibody Rapid Non react (Non React) 04/08/19 17:46 Non react (Non React) 04/08/19 17:46 Active Medications - Current Medications Current Medications: Generic Name Dose Route Start Last Admin Trade Name Freq PRN Reason Stop Dose Admin Albuterol 2.5 mg 04/08/19 17:09 Proventil IH Q4H PRN Shortness Of Breath Amlodipine Besylate 10 mg 04/12/19 09:00 04/13/19 10:07 Norvasc PO 10 mg DAILY MADELINE Administration Calcium/Vitamin D 1 each 04/07/19 22:00 04/14/19 04:31 Oysco D 500 Mg-200 Unit PO Not Given BID [facility] Enoxaparin Sodium 40 mg 04/10/19 22:00 04/14/19 04:30 Lovenox SUB-Q Not Given QDAY@2200 MADELINE Folic Acid 1 mg 04/07/19 22:00 04/13/19 10:07 Folvite PO 1 mg QDAY MADELINE Administration Gabapentin 300 mg 04/07/19 22:00 04/14/19 04:31 Neurontin PO Not Given Q8HR MADELINE Hydralazine HCl 10 mg 04/08/19 17:13 04/14/19 07:54 Apresoline IV 10 mg Q6H PRN Administration SBP > 155 Melatonin 5 mg 04/07/19 23:00 04/13/19 23:02 Melatonin PO 5 mg QHS MADELINE Administration Metoprolol Tartrate 50 mg 04/08/19 10:00 04/14/19 04:32 Lopressor PO Not Given BID MADELINE Olanzapine 5 mg 04/10/19 22:00 04/13/19 23:01 Zyprexa Zydis PO 5 mg HS MADELINE Administration Ondansetron HCl 4 mg 04/08/19 17:09 04/13/19 16:22 Zofran IV 4 mg Q8H PRN Administration Nausea And Vomiting Prednisone 40 mg 04/12/19 13:00 04/14/19 04:29 Deltasone PO Not Given BID [facility] Sodium Chloride 10 ml 04/08/19 22:00 04/14/19 04:31 Sodium Chloride Flush Syringe 10 Ml IV Not Given BID MADELINE Sodium Chloride 10 ml 04/08/19 17:09 Sodium Chloride Flush Syringe 10 Ml IV PRN PRN LINE FLUSH Thiamine HCl 100 mg 04/07/19 22:00 04/13/19 10:07 Vitamin B-1 PO 100 mg QDAY MADELINE Administration
[2019-04-14] MEDS: VITAMIN B-1 PO SCH ×2 (13:06→15:11)
[2019-04-14] MEDS: FOLVITE PO SCH ×2 (13:07→15:10)
[2019-04-14] MEDS: NORVASC PO SCH ×2 (13:07→15:17)
--- NOTE | 2019-04-14 16:13 | Progress Note ---
Subjective - Reason for Consult Consult date: 04/14/19 Reason for consult: Psycchiatry Follow-up - Chief Complaint Chief complaint: "I'm bleeding internally" This is a reconsult 48 y.o. female presented to the ER for bizarre behavior. Today the patient is calm was tangent during the assessment. Per collateral information from the patient's hospitalist, he stated that the patient was presenting with paranoia prior to her discharge. I the provider spoke with the patient's and mother at the bedside, they both say that the patient have been delusional and paranoid the past 24 hours. The patient think that she has internal bleeding and voided on the floor, because she refused to sit on the toilet per her . The patient have been on several dosage of steroids since early March per her family members. Throughout the interview, the patient had to be redirected to keep her on topic. She denies SI/HI's and VH's. She would not confirm or deny AH's. Per the family, the patient isn't eating. 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 Today the patient was tangent during the assessment. DDx: Delirium, Medication Induced Psychosis (Steroid) Medical: The patient has a hx of Lopus per collateral information from her . Recommendation/Plan: Initiate 1013 and continue Melatonin 5 mg PO HS for sleep and and increase Zyorexa Zydis ODT to 10 mg PO HS for psychosis. Discussed possible metabolic side effects of Zyprexa with the patient's family, they verbalized understanding. Staffed with Dr Kylie Carson.
[2019-04-14] MEDS: HALDOL IM PRN (21:28)
[2019-04-14] MEDS: MELATONIN PO SCH (22:00)
[2019-04-15] MEDS: APRESOLINE IV PRN (05:27)
[2019-04-15] MEDS: NEURONTIN PO SCH ×3 (06:57→21:37)
[2019-04-15] MEDS: LOPRESSOR PO SCH ×2 (09:58→21:38)
--- NOTE | 2019-04-15 09:58 | Progress Note ---
Subjective Date of service: 04/15/19 Interval history: went over the psych notes and await speaking to Dr. Frank Luque noted the macrocytosis and would be worthwhile checking theB 12 and folate as this may be linked to confusion... still bleive the original seizure was from medication given at [facility] Objective - Vital Sign Vital Signs - 12hr 04/15/19 04/15/19 04/15/19 01:41 05:10 05:17 Temperature 99.9 F H 101.6 F H 101.6 F H Pulse Rate 116 H 136 H 138 H Respiratory 16 20 20 Rate Blood Pressure 137/81 Blood Pressure 185/103 [Right] O2 Sat by Pulse 97 99 100 Oximetry 04/15/19 04/15/19 05:27 09:47 Temperature Pulse Rate Respiratory Rate Blood Pressure 185/103 122/66 Blood Pressure [Right] O2 Sat by Pulse Oximetry - Laboratory Findings CBC and BMP: 04/08/19 17:46 04/09/19 15:00 Abnormal Lab Findings: Abnormal Labs 04/06/19 04/06/19 04/06/19 20:04 20:05 20:05 WBC RBC 3.05 L Hgb 9.8 L MCV 104 H RDW 24.7 H Lymph % (Auto) 5.7 L Lymph # 0.3 L Seg Neutrophils % 90.0 H Seg Neuts % (Manual) Monocytes % (Manual) Nucleated RBC % Lymphocytes # (Manual) Chloride 97.9 L Glucose 161 H Lactic Acid Total Creatine Kinase 19 L C-Reactive Protein Total Protein Albumin 3.6 L Urine pH Salicylates < 0.3 L Acetaminophen Valproic Acid JOSE ALFREDO Screen JOSE ALFREDO Titer Double Strand DNA Ab 04/06/19 04/06/19 04/06/19 20:05 20:05 22:40 WBC RBC Hgb MCV RDW Lymph % (Auto) Lymph # Seg Neutrophils % Seg Neuts % (Manual) Monocytes % (Manual) Nucleated RBC % Lymphocytes # (Manual) Chloride Glucose Lactic Acid 2.80 H* Total Creatine Kinase C-Reactive Protein Total Protein Albumin Urine pH 8.0 H Salicylates Acetaminophen < 5.0 L Valproic Acid JOSE ALFREDO Screen JOSE ALFREDO Titer Double Strand DNA Ab 04/08/19 04/08/19 04/08/19 07:33 17:46 17:46 WBC 3.8 L RBC 3.04 L Hgb 9.7 L MCV 103 H RDW 23.2 H Lymph % (Auto) Lymph # Seg Neutrophils % Seg Neuts % (Manual) 74.0 H Monocytes % (Manual) 8.0 H Nucleated RBC % 2.0 H Lymphocytes # (Manual) 0.7 L Chloride Glucose Lactic Acid Total Creatine Kinase C-Reactive Protein 5.10 H Total Protein Albumin Urine pH Salicylates Acetaminophen Valproic Acid 2.8 L JOSE ALFREDO Screen JOSE ALFREDO Titer Double Strand DNA Ab 04/08/19 04/08/19 04/09/19 17:46 17:46 15:00 WBC RBC Hgb MCV RDW Lymph % (Auto) Lymph # Seg Neutrophils % Seg Neuts % (Manual) Monocytes % (Manual) Nucleated RBC % Lymphocytes # (Manual) Chloride Glucose Lactic Acid Total Creatine Kinase C-Reactive Protein Total Protein 6.2 L Albumin 3.6 L Urine pH Salicylates Acetaminophen Valproic Acid JOSE ALFREDO Screen Positive H JOSE ALFREDO Titer 1:160 H Double Strand DNA Ab 52 H
[2019-04-15] MEDS: HALDOL IM PRN ×2 (10:05→15:38)
[2019-04-15] MEDS: NORVASC PO SCH ×2 (10:11→10:18)
[2019-04-15] MEDS: DELTASONE PO SCH ×2 (10:11→10:16)
[2019-04-15] MEDS: OYSCO D 500 MG-200 UNIT PO SCH ×2 (10:11→21:38)
[2019-04-15] MEDS: VITAMIN B-1 PO SCH (10:11)
[2019-04-15] MEDS: SODIUM CHLORIDE FLUSH SYRINGE 10 ML IV SCH ×2 (10:11→21:39)
[2019-04-15] MEDS: FOLVITE PO SCH (10:11)
--- NOTE | 2019-04-15 12:50 | Progress Note ---
Subjective - Reason for Consult Consult date: 04/15/19 Reason for consult: Psychiatry Follow-up - Chief Complaint Chief complaint: "The patient's speech is somewhat incoherent": 48 y.o. female presented to the ER for bizarre behavior. Today the patient is calm, but disorganized during the assessment. Her speech was somewhat incoherent. Her answers to all my questions were not logical. per the staff, the patient isn't eating. Also, the patient is refusing her medications per the MAR. No gesture of SI/HI's. Mental Status Exam - Vital signs Last Vital Signs Temp 99.9 F H 04/15/19 09:55 Pulse 150 H 04/15/19 09:58 Resp 20 04/15/19 05:17 BP 122/66 04/15/19 09:58 Pulse Ox 100 04/15/19 05:17 - Exam Narrative exam: Unable to complete the MSE because of the patient's condition. 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 Today the patient was calm, but disorganized during the assessment. DDx: Delirium, Medication Induced Psychosis (Steroid) Medical: The patient has a hx of Lopus and experienced Bacterial Meningitis per collateral information from her . The patient is Tachycardic (155) and febrile (99.9) that's being addressed by the hospitalist. Recommendation/Plan: Continue 1013, Melatonin 5 mg PO HS for sleep, and Zyorexa Zydis ODT 10 mg PO HS for psychosis. Discussed possible metabolic side effects of Zyprexa with the patient's family, they verbalized understanding. Staffed with Dr Kylie Carson.
--- NOTE | 2019-04-15 13:40 | Progress Note ---
Assessment and Plan Assessment and plan: Acute encephalopathy. 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 Patient was previously hospitalized at [facility] earlier this month. We will attempt to obtain all records from [facility]. Neurology and psych consult appreciated. Psychosis; on zyprexa Sepsis, pt with new fever spike. Re-consulted ID - Patient was on ceftriaxone and discontinued on 04/11/19 - ID input appreciated - fever recurrent, likely due to lupus flareup--recheck CBC, blood cx, ua SLE; AND, Anti DS DNA Ab increased, check ESR, Urine proein/cr - CRP is 5.1 Encepahlopathy /confusion is due to psychosis - Patient is followed with psych and neurology Lupus cerebritis - Pulse dose Solumedrol Hypertension - Uncontrolled patient refused taking medications Psychosis - Psych is following and patient is on Zyprexa and Haldol prn - Patient was on 1013 and now reinstated per Psych. Patient was confused, paranoid yesterday which continues Asthma; not in exacerbation DVT prophylaxis; on lovenox. Disposition; continue inpatient care, Possible transfer tomorrow I spoke with who wants pt transferred. I explained to him difficulty of transfer given family request and that is the weekend. I will attempt to contact Dr. Luque (lupus specialist) that saw her in the past for directions on therapy or possible transfer. I was able to speak to her [employer]'s (Blanca Lance) partner covering this weekend from [facility]. His name is Levon Maloney (mobile--[phone]) He may potentially arrange transfer for tomorrow or Wednesday to [facility]. From his investigation, treatment plan that she received during her recent hospitalization at [facility] was with Cytoxan IV. He recommends Solumedrol pulse therapy 1000mg now and in am. for now Total time 55 minutes with > 50% spent on coordination of care and counseling History Interval history: Pt more confused after a period of lucidity(couple days ago) per Psych Hospitalist Physical - Constitutional Vitals: Temp Pulse Resp BP Pulse Ox 98.8 F 123 H 20 132/70 96 04/15/19 12:16 04/15/19 12:16 04/15/19 12:16 04/15/19 12:16 04/15/19 12:16 General appearance: Present: mild distress - EENT Eyes: Present: PERRL, EOM intact ENT: hearing intact, clear oral mucosa, dentition normal - Neck Neck: Present: supple, normal ROM - Respiratory Respiratory effort: normal Respiratory: bilateral: CTA - Cardiovascular Rhythm: regular Heart Sounds: Present: S1 & S2. Absent: gallop, rub - Extremities Extremities: no ischemia, No edema, Full ROM - Abdominal General gastrointestinal: soft, non-tender, non-distended, normal bowel sounds - Integumentary Integumentary: Present: clear, warm, dry - Neurologic Neurologic: CNII-XII intact, moves all extremities Results - Labs CBC & Chem 7: 04/08/19 17:46 04/09/19 15:00 Labs: Laboratory Last Values WBC 3.8 K/mm3 (4.5-11.0) L 04/08/19 17:46 RBC 3.04 M/mm3 (3.65-5.03) L 04/08/19 17:46 Hgb 9.7 gm/dl (10.1-14.3) L 04/08/19 17:46 Hct 31.2 % (30.3-42.9) 04/08/19 17:46 MCV 103 fl (79-97) H 04/08/19 17:46 MCH 32 pg (28-32) 04/08/19 17:46 MCHC 31 % (30-34) 04/08/19 17:46 RDW 23.2 % (13.2-15.2) H 04/08/19 17:46 Plt Count 291 K/mm3 (140-440) 04/08/19 17:46 Lymph % (Auto) 5.7 % (13.4-35.0) L 04/06/19 20:05 Wake % (Auto) 3.4 % (0.0-7.3) 04/06/19 20:05 Eos % (Auto) 0.0 % (0.0-4.3) 04/06/19 20:05 Baso % (Auto) 0.9 % (0.0-1.8) 04/06/19 20:05 Lymph # 0.3 K/mm3 (1.2-5.4) L 04/06/19 20:05 Wake # 0.2 K/mm3 (0.0-0.8) 04/06/19 20:05 Eos # 0.0 K/mm3 (0.0-0.4) 04/06/19 20:05 Baso # 0.0 K/mm3 (0.0-0.1) 04/06/19 20:05 Add Manual Diff Complete 04/08/19 17:46 Total Counted 100 04/08/19 17:46 Seg Neutrophils % 90.0 % (40.0-70.0) H 04/06/19 20:05 Seg Neuts % (Manual) 74.0 % (40.0-70.0) H 04/08/19 17:46 0 % 04/08/19 17:46 18.0 % (13.4-35.0) 04/08/19 17:46 Reactive Lymphs % (Man) 0 % 04/08/19 17:46 8.0 % (0.0-7.3) H 04/08/19 17:46 0 % (0.0-4.3) 04/08/19 17:46 0 % (0.0-1.8) 04/08/19 17:46 0 % 04/08/19 17:46 0 % 04/08/19 17:46 0 % 04/08/19 17:46 0 % 04/08/19 17:46 Nucleated RBC % 2.0 % (0.0-0.9) H 04/08/19 17:46 Seg Neutrophils # 4.7 K/mm3 (1.8-7.7) 04/06/19 20:05 Seg Neutrophils # Man 2.8 K/mm3 (1.8-7.7) 04/08/19 17:46 Band Neutrophils # 0.0 K/mm3 04/08/19 17:46 0.7 K/mm3 (1.2-5.4) L 04/08/19 17:46 Abs React Lymphs (Man) 0.0 K/mm3 04/08/19 17:46 0.3 K/mm3 (0.0-0.8) 04/08/19 17:46 0.0 K/mm3 (0.0-0.4) 04/08/19 17:46 0.0 K/mm3 (0.0-0.1) 04/08/19 17:46 0.0 K/mm3 04/08/19 17:46 0.0 K/mm3 04/08/19 17:46 0.0 K/mm3 04/08/19 17:46 Blast Cells # 0.0 K/mm3 04/08/19 17:46 WBC Morphology Not Reportable 04/08/19 17:46 WBC Morphology TNR 04/08/19 17:46 Hypersegmented Neuts Not Reportable 04/08/19 17:46 Hyposegmented Neuts Not Reportable 04/08/19 17:46 Hypogranular Neuts Not Reportable 04/08/19 17:46 Not Reportable 04/08/19 17:46 Not Reportable 04/08/19 17:46 Not Reportable 04/08/19 17:46 Not Reportable 04/08/19 17:46 Not Reportable 04/08/19 17:46 Not Reportable 04/08/19 17:46 Consistent w auto 04/08/19 17:46 Not Reportable 04/08/19 17:46 Plt Clumps, EDTA Not Reportable 04/08/19 17:46 Not Reportable 04/08/19 17:46 Not Reportable 04/08/19 17:46 Not Reportable 04/08/19 17:46 Plt Morphology Comment Not Reportable 04/08/19 17:46 RBC Morphology Not Reportable 04/08/19 17:46 Dimorphic RBCs Not Reportable 04/08/19 17:46 Not Reportable 04/08/19 17:46 Not Reportable 04/08/19 17:46 Not Reportable 04/08/19 17:46 1+ 04/08/19 17:46 Not Reportable 04/08/19 17:46 Not Reportable 04/08/19 17:46 Not Reportable 04/08/19 17:46 Not Reportable 04/08/19 17:46 Not Reportable 04/08/19 17:46 Not Reportable 04/08/19 17:46 Not Reportable 04/08/19 17:46 Not Reportable 04/08/19 17:46 Not Reportable 04/08/19 17:46 Not Reportable 04/08/19 17:46 Not Reportable 04/08/19 17:46 Not Reportable 04/08/19 17:46 Not Reportable 04/08/19 17:46 Not Reportable 04/08/19 17:46 Not Reportable 04/08/19 17:46 Acanthocytes (Spur) Not Reportable 04/08/19 17:46 Rouleaux Not Reportable 04/08/19 17:46 Not Reportable 04/08/19 17:46 Not Reportable 04/08/19 17:46 Not Reportable 04/08/19 17:46 ESR 47 mm/Hr (0-20) 04/08/19 17:46 Not Reportable 04/08/19 17:46 Hem Pathologist Commnt No 04/08/19 17:46 see below 04/08/19 17:46 Sodium 138 mmol/L (137-145) 04/09/19 15:00 Potassium 4.4 mmol/L (3.6-5.0) 04/09/19 15:00 Chloride 98.4 mmol/L (98-107) 04/09/19 15:00 Carbon Dioxide 25 mmol/L (22-30) 04/09/19 15:00 19 mmol/L 04/09/19 15:00 BUN 16 mg/dL (7-17) 04/09/19 15:00 0.8 mg/dL (0.7-1.2) 04/09/19 15:00 Estimated GFR > 60 ml/min 04/09/19 15:00 20 % 04/09/19 15:00 Glucose 72 mg/dL (65-100) 04/09/19 15:00 POC Glucose 102 (70-105) 04/14/19 15:42 Lactic Acid 0.90 mmol/L (0.7-2.0) 04/08/19 21:48 Calcium 8.7 mg/dL (8.4-10.2) 04/09/19 15:00 0.40 mg/dL (0.1-1.2) 04/09/19 15:00 AST 21 units/L (5-40) 04/09/19 15:00 ALT 21 units/L (7-56) 04/09/19 15:00 81 units/L (35-129) 04/09/19 15:00 29.0 umol/L (25-60) 04/06/19 20:05 19 units/L (30-135) L 04/06/19 20:05 < 0.010 ng/mL (0.00-0.029) 04/06/19 20:05 5.10 mg/dL (0.00-1.30) H 04/08/19 17:46 6.2 g/dL (6.3-8.2) L 04/09/19 15:00 3.6 g/dL (3.9-5) L 04/09/19 15:00 1.4 % 04/09/19 15:00 TSH 1.680 mlU/mL (0.270-4.200) 04/08/19 17:46 Free T4 1.20 ng/dL (0.76-1.46) 04/08/19 17:46 Yellow (Yellow) 04/06/19 22:40 Clear (Clear) 04/06/19 22:40 8.0 (5.0-7.0) H 04/06/19 22:40 Ur Specific [place] 1.011 (1.003-1.030) 04/06/19 22:40 <15 mg/dl mg/dL (Negative) 04/06/19 22:40 50 mg/dL (Negative) 04/06/19 22:40 Neg mg/dL (Negative) 04/06/19 22:40 Neg (Negative) 04/06/19 22:40 Neg (Negative) 04/06/19 22:40 Neg (Negative) 04/06/19 22:40 < 2.0 mg/dL (<2.0) 04/06/19 22:40 Ur Leukocyte Esterase Neg (Negative) 04/06/19 22:40 1.0 /HPF (0.0-6.0) 04/06/19 22:40 2.0 /HPF (0.0-6.0) 04/06/19 22:40 U Epithel Cells (Auto) < 1.0 /HPF (0-13.0) 04/06/19 22:40 Hyaline Casts 1 /LPF 04/06/19 22:40 Salicylates < 0.3 mg/dL (2.8-20.0) L 04/06/19 20:04 Presumptive negative 04/06/19 22:40 Presumptive negative 04/06/19 22:40 Acetaminophen < 5.0 ug/mL (10.0-30.0) L 04/06/19 20:05 Ur Barbiturates Screen Presumptive negative 04/06/19 22:40 Valproic Acid 2.8 ug/mL (50-100) L 04/08/19 07:33 Ur Phencyclidine Scrn Presumptive negative 04/06/19 22:40 Ur Amphetamines Screen Presumptive negative 04/06/19 22:40 U Benzodiazepines Scrn Presumptive negative 04/06/19 22:40 Presumptive negative 04/06/19 22:40 U Marijuana (THC) Screen Presumptive negative 04/06/19 22:40 Disclamer 04/06/19 22:40 Plasma/Serum Alcohol < 0.01 % (0-0.07) 04/06/19 20:05 JOSE ALFREDO Screen Positive (Negative) H 04/08/19 17:46 JOSE ALFREDO Titer 1:160 (Negative) H 04/08/19 17:46 JOSE ALFREDO Pattern Homogeneous 04/08/19 17:46 Double Strand DNA Ab 52 IU/mL (<=4) H 04/08/19 17:46 HIV 1&2 Antibody Rapid Non react (Non React) 04/08/19 17:46 Non react (Non React) 04/08/19 17:46 Active Medications - Current Medications Current Medications: Generic Name Dose Route Start Last Admin Trade Name Freq PRN Reason Stop Dose Admin Albuterol 2.5 mg 04/08/19 17:09 Proventil IH Q4H PRN Shortness Of Breath Amlodipine Besylate 10 mg 04/12/19 09:00 04/15/19 10:18 Norvasc PO 10 mg DAILY MADELINE Administration Calcium/Vitamin D 1 each 04/07/19 22:00 04/15/19 10:11 Oysco D 500 Mg-200 Unit PO Not Given BID [facility] Enoxaparin Sodium 40 mg 04/10/19 22:00 04/14/19 22:00 Lovenox SUB-Q Not Given QDAY@2200 MADELINE Folic Acid 1 mg 04/07/19 22:00 04/15/19 10:11 Folvite PO Not Given QDAY MADELINE Gabapentin 300 mg 04/07/19 22:00 04/15/19 06:57 Neurontin PO Not Given Q8HR MADELINE Haloperidol Lactate 5 mg 04/14/19 14:40 04/15/19 10:05 Haldol IM 5 mg Q4H PRN Administration Agitation Hydralazine HCl 10 mg 04/08/19 17:13 04/15/19 05:27 Apresoline IV 10 mg Q6H PRN Administration SBP > 155 Melatonin 5 mg 04/07/19 23:00 04/14/19 22:00 Melatonin PO Not Given QHS MADELINE Metoprolol Tartrate 50 mg 04/08/19 10:00 04/15/19 09:58 Lopressor PO 50 mg BID MADELINE Administration Olanzapine 10 mg 04/14/19 22:00 04/14/19 22:00 Zyprexa Zydis PO Not Given HS MADELINE Ondansetron HCl 4 mg 04/08/19 17:09 04/13/19 16:22 Zofran IV 4 mg Q8H PRN Administration Nausea And Vomiting Prednisone 40 mg 04/12/19 13:00 04/15/19 10:16 Deltasone PO 40 mg BID MADELINE Administration Sodium Chloride 10 ml 04/08/19 22:00 04/15/19 10:11 Sodium Chloride Flush Syringe 10 Ml IV Not Given BID MADELINE Sodium Chloride 10 ml 04/08/19 17:09 Sodium Chloride Flush Syringe 10 Ml IV PRN PRN LINE FLUSH Thiamine HCl 100 mg 04/07/19 22:00 04/15/19 10:11 Vitamin B-1 PO Not Given QDAY [facility] Nutrition/Malnutrition Assess - Dietary Evaluation Nutrition/Malnutrition Findings: Nutrition Notes Start: 04/14/19 18:38 Freq: Status: Active Protocol: Document 04/14/19 18:38 RM (Rec: 04/14/19 18:45 RM [id number]) Nutrition Notes Need for Assessment generated from: LOS Initial or Follow up Assessment Current Diagnosis Hypertension,Hyperlipidemia Other Pertinent Diagnosis Asthma, Encephalopathy, Acute psychosis Current Diet Regular Labs/Tests Reviewed Pertinent Medications Reviewed Height 5 ft 9 in Weight 72 kg [place] Body Weight (kg) 65.90 BMI 23.4 Subjective/Other Information Screened for LOS. Pt and pt relatives in room at time of visit. Pt confused at time of visit stating that she needs to go to hospital for interal bleeding and attempting to walk our door. Pt relative stated that pt has not been eating. Percent of energy/protein needs met: 0%/0% Burn Absent Trauma Absent #1 Nutrition Diagnosis Inadequate oral intake Etiology encephalopathy, acute pyschosis As Evidenced by Signs and Symptoms pt relative statement that pt has not been eating Is patient on ventilator? No Is Patient Ambulatory and/or Out of Bed Yes REE-(Gifford-St. Jeor-ambulatory/OOB) [ [id number] [id number]] Calculation Used for Recommendations [facility] Additional Notes Protein Needs: 58-72g (0.8-1g/ kg) Fluid Needs: 1 ml/kcal Nutrition Intervention Change Diet Order: Continue current Add Supplement/Snack (indicate name/kcal Ensure Enlive 1 daily /protein ) Provides kCal: 350 Provides Protein (gm) 20 Goal #1 Meet at least 75% of calorie and protein needs via PO and ONS intakes Anticipated Discharge Needs: Regular diet Follow-Up By: 04/17/19 Additional Comments Follow for PO and ONS intakes
[2019-04-15 18:19] LABS: Hematocrit 29.9 % (30.3-42.9); Hemoglobin 9.7 gm/dl (10.1-14.3); Mean Corpuscular HGB Conc 32 % (30-34); Mean Corpuscular Volume 96 fl (79-97); Platelet Count 327 K/mm3 (140-440); Red Blood Count 3.12 M/mm3 (3.65-5.03)
[2019-04-15 18:22] LABS: Red Cell Distribution Width 22.1 % (13.2-15.2)
[2019-04-15] MEDS: SOLU-Medrol 1,000 MG in NACL 0.9% 250ML 250 ML IV SCH (18:28)
[2019-04-15 18:35] LABS: BUN/Creatinine Ratio 20; Blood Urea Nitrogen 18 mg/dL (7-17); Calcium 8.9 mg/dL (8.4-10.2); Hemolysis Index 7
[2019-04-15 18:48] LABS: Erythrocyte Sedimentation Rate 52 mm/Hr (0-20)
[2019-04-15 19:18] LABS: Anisocytosis 1+; Basophils % (Manual) 0 % (0.0-1.8); Eosinophils % (Manual) 0 % (0.0-4.3); Ovalocytes Few; Poikilocytosis 1+; Tear Drop Cells Few; Total Cells Counted 100
[2019-04-15 19:19] LABS: Hypochromasia 1+; Platelet Estimate Consistent w Auto
[2019-04-15] MEDS: MELATONIN PO SCH (21:38)
[2019-04-15] MEDS: LOVENOX SUB-Q SCH (21:39)
[2019-04-16 01:06] LABS: Bacteria,Urine 1+ /HPF (Negative); Bilirubin,Urine NEG (Negative); Blood,Urine SM (Negative); Color,Urine Amber (Yellow); Mucus,Urine 1+ /HPF; Urobilinogen,Urine < 2.0 mg/dL (<2.0)
[2019-04-16 01:10] LABS: Protein/Creatinine Ratio,Urine 0.44
[2019-04-16] MEDS: NEURONTIN PO SCH ×2 (06:16→14:02)
[2019-04-16 06:37] LABS: Basophils % (Auto) 0.1 % (0.0-1.8); Eosinophils % (Auto) 0.1 % (0.0-4.3); Hematocrit 29.9 % (30.3-42.9); Hemoglobin 9.4 gm/dl (10.1-14.3); Lymphocytes # (Auto) 0.6 K/mm3 (1.2-5.4); Lymphocytes % (Auto) 14.7 % (13.4-35.0); Mean Corpuscular HGB Conc 32 % (30-34); Mean Corpuscular Volume 99 fl (79-97); Monocytes # (Auto) 0.1 K/mm3 (0.0-0.8); Monocytes % (Auto) 3.1 % (0.0-7.3); Platelet Count 297 K/mm3 (140-440); Red Blood Count 3.03 M/mm3 (3.65-5.03)
[2019-04-16 06:47] LABS: BUN/Creatinine Ratio 24; Blood Urea Nitrogen 22 mg/dL (7-17); Calcium 8.9 mg/dL (8.4-10.2); Hemolysis Index 3
[2019-04-16 06:53] LABS: Red Cell Distribution Width 22.5 % (13.2-15.2)
[2019-04-16 07:17] LABS: Erythrocyte Sedimentation Rate 37 mm/Hr (0-20)
--- NOTE | 2019-04-16 08:44 | Progress Note ---
Subjective Date of service: 04/16/19 Interval history: I spoke to the mother and she mentionrd this is first time for such mntal changes,,, not speaking will repeat MRI of the brain I checked over the recent labs and nothing unusual to report or draw attention to... did check psych note explained to mother I will further check into this matter Objective - Vital Sign Vital Signs - 12hr 04/15/19 23:18 Temperature 96.1 F L Respiratory 16 Rate Blood Pressure 112/56 - Laboratory Findings CBC and BMP: 04/16/19 06:08 04/16/19 06:08 Abnormal Lab Findings: Abnormal Labs 04/06/19 04/06/19 04/06/19 20:04 20:05 20:05 WBC RBC 3.05 L Hgb 9.8 L Hct MCV 104 H RDW 24.7 H Lymph % (Auto) 5.7 L Lymph # 0.3 L Seg Neutrophils % 90.0 H Seg Neuts % (Manual) Lymphocytes % (Manual) Monocytes % (Manual) Nucleated RBC % Lymphocytes # (Manual) Sodium Chloride 97.9 L BUN Glucose 161 H Lactic Acid Total Creatine Kinase 19 L C-Reactive Protein Total Protein Albumin 3.6 L Vitamin B12 Urine pH Urine WBC (Auto) Urine Creatinine Urine Total Protein Salicylates < 0.3 L Acetaminophen Valproic Acid JOSE ALFREDO Screen JOSE ALFREDO Titer Double Strand DNA Ab 04/06/19 04/06/19 04/06/19 20:05 20:05 22:40 WBC RBC Hgb Hct MCV RDW Lymph % (Auto) Lymph # Seg Neutrophils % Seg Neuts % (Manual) Lymphocytes % (Manual) Monocytes % (Manual) Nucleated RBC % Lymphocytes # (Manual) Sodium Chloride BUN Glucose Lactic Acid 2.80 H* Total Creatine Kinase C-Reactive Protein Total Protein Albumin Vitamin B12 Urine pH 8.0 H Urine WBC (Auto) Urine Creatinine Urine Total Protein Salicylates Acetaminophen < 5.0 L Valproic Acid JOSE ALFREDO Screen JOSE ALFREDO Titer Double Strand DNA Ab 04/08/19 04/08/19 04/08/19 07:33 17:46 17:46 WBC 3.8 L RBC 3.04 L Hgb 9.7 L Hct MCV 103 H RDW 23.2 H Lymph % (Auto) Lymph # Seg Neutrophils % Seg Neuts % (Manual) 74.0 H Lymphocytes % (Manual) Monocytes % (Manual) 8.0 H Nucleated RBC % 2.0 H Lymphocytes # (Manual) 0.7 L Sodium Chloride BUN Glucose Lactic Acid Total Creatine Kinase C-Reactive Protein 5.10 H Total Protein Albumin Vitamin B12 Urine pH Urine WBC (Auto) Urine Creatinine Urine Total Protein Salicylates Acetaminophen Valproic Acid 2.8 L JOSE ALFREDO Screen JOSE ALFREDO Titer Double Strand DNA Ab 04/08/19 04/08/19 04/09/19 17:46 17:46 15:00 WBC RBC Hgb Hct MCV RDW Lymph % (Auto) Lymph # Seg Neutrophils % Seg Neuts % (Manual) Lymphocytes % (Manual) Monocytes % (Manual) Nucleated RBC % Lymphocytes # (Manual) Sodium Chloride BUN Glucose Lactic Acid Total Creatine Kinase C-Reactive Protein Total Protein 6.2 L Albumin 3.6 L Vitamin B12 Urine pH Urine WBC (Auto) Urine Creatinine Urine Total Protein Salicylates Acetaminophen Valproic Acid JOSE ALFREDO Screen Positive H JOSE ALFREDO Titer 1:160 H Double Strand DNA Ab 52 H 04/15/19 04/15/19 04/15/19 14:48 18:10 18:10 WBC RBC 3.12 L Hgb 9.7 L Hct 29.9 L MCV RDW 22.1 H Lymph % (Auto) Lymph # Seg Neutrophils % Seg Neuts % (Manual) 95.0 H Lymphocytes % (Manual) 3.0 L Monocytes % (Manual) Nucleated RBC % Lymphocytes # (Manual) 0.2 L Sodium 134 L Chloride BUN 18 H Glucose 167 H Lactic Acid Total Creatine Kinase C-Reactive Protein Total Protein Albumin Vitamin B12 1413 H Urine pH Urine WBC (Auto) Urine Creatinine Urine Total Protein Salicylates Acetaminophen Valproic Acid JOSE ALFREDO Screen JOSE ALFREDO Titer Double Strand DNA Ab 04/16/19 04/16/19 04/16/19 00:30 00:30 06:08 WBC 4.0 L RBC 3.03 L Hgb 9.4 L Hct 29.9 L MCV 99 H RDW 22.5 H Lymph % (Auto) Lymph # 0.6 L Seg Neutrophils % 82.0 H Seg Neuts % (Manual) Lymphocytes % (Manual) Monocytes % (Manual) Nucleated RBC % Lymphocytes # (Manual) Sodium Chloride BUN Glucose Lactic Acid Total Creatine Kinase C-Reactive Protein Total Protein Albumin Vitamin B12 Urine pH Urine WBC (Auto) 11.0 H Urine Creatinine 152.0 H Urine Total Protein 67 H Salicylates Acetaminophen Valproic Acid JOSE ALFREDO Screen JOSE ALFREDO Titer Double Strand DNA Ab 04/16/19 06:08 WBC RBC Hgb Hct MCV RDW Lymph % (Auto) Lymph # Seg Neutrophils % Seg Neuts % (Manual) Lymphocytes % (Manual) Monocytes % (Manual) Nucleated RBC % Lymphocytes # (Manual) Sodium Chloride BUN 22 H Glucose 156 H Lactic Acid Total Creatine Kinase C-Reactive Protein Total Protein Albumin Vitamin B12 Urine pH Urine WBC (Auto) Urine Creatinine Urine Total Protein Salicylates Acetaminophen Valproic Acid JOSE ALFREDO Screen JOSE ALFREDO Titer Double Strand DNA Ab
[2019-04-16] MEDS: VITAMIN B-1 PO SCH (10:32)
[2019-04-16] MEDS: LOPRESSOR PO SCH (10:32)
[2019-04-16] MEDS: NORVASC PO SCH (10:32)
[2019-04-16] MEDS: OYSCO D 500 MG-200 UNIT PO SCH (10:32)
[2019-04-16] MEDS: FOLVITE PO SCH (10:32)
[2019-04-16] MEDS: SODIUM CHLORIDE FLUSH SYRINGE 10 ML IV SCH (10:33)
--- NOTE | 2019-04-16 11:35 | Progress Note ---
Subjective - Reason for Consult Consult date: 04/16/19 Reason for consult: Psychiatry Follow-up - Chief Complaint Chief complaint: "I need to leave": 48 y.o. female presented to the ER for bizarre behavior. Today the patient is calm, but still disorganized during the assessment. She continue to be paranoid, but didn't refuse her medications today. Her speech isn't incoherent as it was yesterday. No gestures of SI/HI's. Mental Status Exam - Vital signs Last Vital Signs Temp 95.9 F L 04/16/19 05:53 Pulse 89 04/16/19 10:32 Resp 16 04/16/19 05:53 BP 130/64 04/16/19 10:32 Pulse Ox 98 04/15/19 18:05 - Exam Narrative exam: MSE: Appearance: calm, cooperative Behavior: regular eye contact Speech: regular rate and tone Mood: preoccupied Affect: congruent to mood Thought Process: disorganized Thought Content: denies SI/HI's and VH's, delusional, paranoid Motor Activity: sitting up in the bed Cognition: A/O x2, with some confusion Insight: poor Judgment: poor Assessment and Plan Impression: 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 Today the patient was calm, but still disorganized during the assessment. MRI ordered by neuro. DDx: Delirium, Medication Induced Psychosis (Steroid) Medical: The patient has a hx of Lopus and experienced Bacterial Meningitis per collateral information from her . Per the notes, the patient's requested a transfer for his to go to [place]. Recommendation/Plan: Continue 1013, Melatonin 5 mg PO HS for sleep, and Zyorexa Zydis ODT 10 mg PO HS for psychosis. Discussed possible metabolic side effects of Zyprexa with the patient's family, they verbalized understanding. Will staff with Dr Kylie Carson.
--- NOTE | 2019-04-16 12:17 | Progress Note ---
Assessment and Plan Assessment and plan: 48-year-old woman who came to the hospital with altered mental status and confusion, she had fallen and hit her head prior to coming to the hospital Acute encephalopathy. 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 Patient was previously hospitalized at [place] earlier this month. We will attempt to obtain all records from [facility]. Neurology and psych consult jose reciated. Psychosis; on zyprexa, neuro consult appreciated, MR ordered and pending Sirs, fever likely due to lupus flare, no evidence of infection SLE; AND, Anti DS DNA Ab increased, check ESR, Urine proein/cr - CRP is 5.1 Encepahlopathy /confusion is due to psychosis - Patient is followed with psych and neurology Lupus cerebritis - Pulse dose Solumedrol Hypertension - Uncontrolled patient refused taking medications Psychosis - Psych is following and patient -: Continue 1013, Melatonin 5 mg PO HS for sleep, and Zyorexa Zydis ODT 10 mg PO HS for psychosis. Discussed possible metabolic side effects of Zyprexa with the patient's family, they verbalized understanding. Asthma; not in exacerbation DVT prophylaxis; on lovenox. Disposition; continue inpatient care, Possible transfer tomorrow I spoke with who wants pt transferred. I explained to him difficulty of transfer given family request and that is the weekend. I will attempt to contact Dr. Luque (lupus specialist) that saw her in the past for directions on therapy or possible transfer. I was able to speak to her Registered Dietician's (Blanca aLnce) partner covering this weekend from [facility]. His name is Levon Stefankain ([place]--[phone]) He may potentially arrange transfer for tomorrow or Wednesday to [facility]. From his investigation, treatment plan that she received during her recent hospitalization at [place] was with Cytoxan IV. He recommends continuing Solumedrol pulse therapy 1000mg daily, transfer tomorrow to [facility] Total time 55 minutes with > 50% spent on coordination of care and counseling History Interval history: Has been confused and paranoid Review of systems Constitutional: No fevers, no malaise, no joint pains CVS: No chest pain, no orthopnea, no dyspnea on exertion, no pedal edema GI: No abdominal pain, no diarrhea, no vomiting, no constipation Respiratory: no wheezing, no coughing Hospitalist Physical - Physical exam Narrative exam: Not in cardiopulmonary distress. The patient appeared well nourished and normally developed. Vital signs as documented. Head exam is unremarkable. No scleral icterus . Neck is without jugular venous distension, thyromegaly, or carotid bruits. Lungs are clear to auscultation. Cardiac exam reveals regular rate and Rhythm. Abdominal exam reveals normal bowel sounds, no masses, no organomegaly and no aortic enlargement. Extremities are nonedematous and both femoral and pedal pulses are normal. 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 Psych; confused, less paranoid today - Constitutional Vitals: Temp Pulse Resp BP Pulse Ox 95.9 F L 89 16 130/64 98 04/16/19 05:53 04/16/19 10:32 04/16/19 05:53 04/16/19 10:32 04/15/19 18:05 General appearance: Present: mild distress Results - Labs CBC & Chem 7: 04/16/19 06:08 04/16/19 06:08 Labs: Laboratory Last Values WBC 4.0 K/mm3 (4.5-11.0) L 04/16/19 06:08 RBC 3.03 M/mm3 (3.65-5.03) L 04/16/19 06:08 Hgb 9.4 gm/dl (10.1-14.3) L 04/16/19 06:08 Hct 29.9 % (30.3-42.9) L 04/16/19 06:08 MCV 99 fl (79-97) H 04/16/19 06:08 MCH 31 pg (28-32) 04/16/19 06:08 MCHC 32 % (30-34) 04/16/19 06:08 RDW 22.5 % (13.2-15.2) H 04/16/19 06:08 Plt Count 297 K/mm3 (140-440) 04/16/19 06:08 Lymph % (Auto) 14.7 % (13.4-35.0) 04/16/19 06:08 [place] % (Auto) 3.1 % (0.0-7.3) 04/16/19 06:08 Eos % (Auto) 0.1 % (0.0-4.3) 04/16/19 06:08 Baso % (Auto) 0.1 % (0.0-1.8) 04/16/19 06:08 Lymph # 0.6 K/mm3 (1.2-5.4) L 04/16/19 06:08 [place]bour # 0.1 K/mm3 (0.0-0.8) 04/16/19 06:08 Eos # 0.0 K/mm3 (0.0-0.4) 04/16/19 06:08 Baso # 0.0 K/mm3 (0.0-0.1) 04/16/19 06:08 Add Manual Diff Complete 04/15/19 18:10 Total Counted 100 04/15/19 18:10 Seg Neutrophils % 82.0 % (40.0-70.0) H 04/16/19 06:08 Seg Neuts % (Manual) 95.0 % (40.0-70.0) H 04/15/19 18:10 0 % 04/15/19 18:10 3.0 % (13.4-35.0) L 04/15/19 18:10 Reactive Lymphs % (Man) 1.0 % 04/15/19 18:10 1.0 % (0.0-7.3) 04/15/19 18:10 0 % (0.0-4.3) 04/15/19 18:10 0 % (0.0-1.8) 04/15/19 18:10 0 % 04/15/19 18:10 0 % 04/15/19 18:10 0 % 04/15/19 18:10 0 % 04/15/19 18:10 Nucleated RBC % Not Reportable 04/15/19 18:10 Seg Neutrophils # 3.3 K/mm3 (1.8-7.7) 04/16/19 06:08 Seg Neutrophils # Man 6.7 K/mm3 (1.8-7.7) 04/15/19 18:10 Band Neutrophils # 0.0 K/mm3 04/15/19 18:10 0.2 K/mm3 (1.2-5.4) L 04/15/19 18:10 Abs React Lymphs (Man) 0.1 K/mm3 04/15/19 18:10 0.1 K/mm3 (0.0-0.8) 04/15/19 18:10 0.0 K/mm3 (0.0-0.4) 04/15/19 18:10 0.0 K/mm3 (0.0-0.1) 04/15/19 18:10 0.0 K/mm3 04/15/19 18:10 0.0 K/mm3 04/15/19 18:10 0.0 K/mm3 04/15/19 18:10 Blast Cells # 0.0 K/mm3 04/15/19 18:10 WBC Morphology Not Reportable 04/15/19 18:10 Hypersegmented Neuts Not Reportable 04/15/19 18:10 Hyposegmented Neuts Not Reportable 04/15/19 18:10 Hypogranular Neuts Not Reportable 04/15/19 18:10 Not Reportable 04/15/19 18:10 Not Reportable 04/15/19 18:10 Not Reportable 04/15/19 18:10 Not Reportable 04/15/19 18:10 Not Reportable 04/15/19 18:10 Not Reportable 04/15/19 18:10 Consistent w auto 04/15/19 18:10 Not Reportable 04/15/19 18:10 Plt Clumps, EDTA Not Reportable 04/15/19 18:10 Not Reportable 04/15/19 18:10 Not Reportable 04/15/19 18:10 Not Reportable 04/15/19 18:10 Plt Morphology Comment Not Reportable 04/15/19 18:10 RBC Morphology Not Reportable 04/15/19 18:10 Dimorphic RBCs Not Reportable 04/15/19 18:10 Not Reportable 04/15/19 18:10 1+ 04/15/19 18:10 1+ 04/15/19 18:10 1+ 04/15/19 18:10 1+ 04/15/19 18:10 Not Reportable 04/15/19 18:10 Not Reportable 04/15/19 18:10 Not Reportable 04/15/19 18:10 Not Reportable 04/15/19 18:10 Not Reportable 04/15/19 18:10 Few 04/15/19 18:10 Few 04/15/19 18:10 Not Reportable 04/15/19 18:10 Not Reportable 04/15/19 18:10 Not Reportable 04/15/19 18:10 Not Reportable 04/15/19 18:10 Not Reportable 04/15/19 18:10 Not Reportable 04/15/19 18:10 Few 04/15/19 18:10 Acanthocytes (Spur) Not Reportable 04/15/19 18:10 Rouleaux Not Reportable 04/15/19 18:10 Not Reportable 04/15/19 18:10 Not Reportable 04/15/19 18:10 Not Reportable 04/15/19 18:10 ESR 37 mm/Hr (0-20) 04/16/19 06:08 Not Reportable 04/15/19 18:10 Hem Pathologist Commnt No 04/15/19 18:10 see below 04/08/19 17:46 Sodium 140 mmol/L (137-145) 04/16/19 06:08 Potassium 4.2 mmol/L (3.6-5.0) 04/16/19 06:08 Chloride 103.9 mmol/L (98-107) 04/16/19 06:08 Carbon Dioxide 23 mmol/L (22-30) 04/16/19 06:08 17 mmol/L 04/16/19 06:08 BUN 22 mg/dL (7-17) H 04/16/19 06:08 0.9 mg/dL (0.7-1.2) 04/16/19 06:08 Estimated GFR > 60 ml/min 04/16/19 06:08 24 % 04/16/19 06:08 Glucose 156 mg/dL (65-100) H 04/16/19 06:08 POC Glucose 102 (70-105) 04/14/19 15:42 Lactic Acid 0.90 mmol/L (0.7-2.0) 04/08/19 21:48 Calcium 8.9 mg/dL (8.4-10.2) 04/16/19 06:08 0.40 mg/dL (0.1-1.2) 04/09/19 15:00 AST 21 units/L (5-40) 04/09/19 15:00 ALT 21 units/L (7-56) 04/09/19 15:00 81 units/L (35-129) 04/09/19 15:00 29.0 umol/L (25-60) 04/06/19 20:05 19 units/L (30-135) L 04/06/19 20:05 < 0.010 ng/mL (0.00-0.029) 04/06/19 20:05 5.10 mg/dL (0.00-1.30) H 04/08/19 17:46 6.2 g/dL (6.3-8.2) L 04/09/19 15:00 3.6 g/dL (3.9-5) L 04/09/19 15:00 1.4 % 04/09/19 15:00 Vitamin B12 1413 pg/mL (211-911) H 04/15/19 14:48 > 20.0 ng/mL (7.3-26.0) 04/15/19 14:48 TSH 1.680 mlU/mL (0.270-4.200) 04/08/19 17:46 Free T4 1.20 ng/dL (0.76-1.46) 04/08/19 17:46 Elvia (Yellow) 04/16/19 00:30 Slightly-cloudy (Clear) 04/16/19 00:30 5.0 (5.0-7.0) 04/16/19 00:30 Ur Specific [place] 1.019 (1.003-1.030) 04/16/19 00:30 30 mg/dl mg/dL (Negative) 04/16/19 00:30 Neg mg/dL (Negative) 04/16/19 00:30 Tr mg/dL (Negative) 04/16/19 00:30 Sm (Negative) 04/16/19 00:30 Neg (Negative) 04/16/19 00:30 Neg (Negative) 04/16/19 00:30 < 2.0 mg/dL (<2.0) 04/16/19 00:30 Ur Leukocyte Esterase Sm (Negative) 04/16/19 00:30 11.0 /HPF (0.0-6.0) H 04/16/19 00:30 1.0 /HPF (0.0-6.0) 04/16/19 00:30 U Epithel Cells (Auto) 1.0 /HPF (0-13.0) 04/16/19 00:30 1+ /HPF (Negative) 04/16/19 00:30 Hyaline Casts 1 /LPF 04/06/19 22:40 1+ /HPF 04/16/19 00:30 152.0 mg/dL (0.1-20.0) H 04/16/19 00:30 Protein/Creatinin Ratio 0.44 04/16/19 00:30 67 mg/dL (5-11.8) H 04/16/19 00:30 Salicylates < 0.3 mg/dL (2.8-20.0) L 04/06/19 20:04 Presumptive negative 04/06/19 22:40 Presumptive negative 04/06/19 22:40 Acetaminophen < 5.0 ug/mL (10.0-30.0) L 04/06/19 20:05 Ur Barbiturates Screen Presumptive negative 04/06/19 22:40 Valproic Acid 2.8 ug/mL (50-100) L 04/08/19 07:33 Ur Phencyclidine Scrn Presumptive negative 04/06/19 22:40 Ur Amphetamines Screen Presumptive negative 04/06/19 22:40 U Benzodiazepines Scrn Presumptive negative 04/06/19 22:40 Presumptive negative 04/06/19 22:40 U Marijuana (THC) Screen Presumptive negative 04/06/19 22:40 Disclamer 04/06/19 22:40 Plasma/Serum Alcohol < 0.01 % (0-0.07) 04/06/19 20:05 JOSE ALFREDO Screen Positive (Negative) H 04/08/19 17:46 JOSE ALFREDO Titer 1:160 (Negative) H 04/08/19 17:46 JOSE ALFREDO Pattern Homogeneous 04/08/19 17:46 Double Strand DNA Ab 52 IU/mL (<=4) H 04/08/19 17:46 HIV 1&2 Antibody Rapid Non react (Non React) 04/08/19 17:46 Non react (Non React) 04/08/19 17:46 Active Medications - Current Medications Current Medications: Generic Name Dose Route Start Last Admin Trade Name Freq PRN Reason Stop Dose Admin Albuterol 2.5 mg 04/08/19 17:09 Proventil IH Q4H PRN Shortness Of Breath Amlodipine Besylate 10 mg 04/12/19 09:00 04/16/19 10:32 Norvasc PO 10 mg DAILY MADELINE Administration Calcium/Vitamin D 1 each 04/07/19 22:00 04/16/19 10:32 Oysco D 500 Mg-200 Unit PO 1 each BID MADELINE Administration Enoxaparin Sodium 40 mg 04/10/19 22:00 04/15/19 21:39 Lovenox SUB-Q Not Given QDAY@2200 MADELINE Folic Acid 1 mg 04/07/19 22:00 04/16/19 10:32 Folvite PO 1 mg QDAY MADELINE Administration Gabapentin 300 mg 04/07/19 22:00 04/16/19 06:16 Neurontin PO 300 mg Q8HR MADELINE Administration Haloperidol Lactate 5 mg 04/14/19 14:40 04/15/19 15:38 Haldol IM 5 mg Q4H PRN Administration Agitation Hydralazine HCl 10 mg 04/08/19 17:13 04/15/19 05:27 Apresoline IV 10 mg Q6H PRN Administration SBP > 155 Methylprednisolone Sodium 250 mls @ 250 mls/hr 04/15/19 17:00 04/15/19 18:28 Succinate 1,000 mg/ Sodium IV 250 mls/hr Chloride Q24H MADELINE Administration Melatonin 5 mg 04/07/19 23:00 04/15/19 21:38 Melatonin PO 5 mg QHS MADELINE Administration Metoprolol Tartrate 50 mg 04/08/19 10:00 04/16/19 10:32 Lopressor PO 50 mg BID MADELINE Administration Olanzapine 10 mg 04/14/19 22:00 04/15/19 21:38 Zyprexa Zydis PO 10 mg HS MADELINE Administration Ondansetron HCl 4 mg 04/08/19 17:09 04/13/19 16:22 Zofran IV 4 mg Q8H PRN Administration Nausea And Vomiting Sodium Chloride 10 ml 04/08/19 22:00 04/16/19 10:33 Sodium Chloride Flush Syringe 10 Ml IV 10 ml BID MADELINE Administration Sodium Chloride 10 ml 04/08/19 17:09 Sodium Chloride Flush Syringe 10 Ml IV PRN PRN LINE FLUSH Thiamine HCl 100 mg 04/07/19 22:00 04/16/19 10:32 Vitamin B-1 PO 100 mg QDAY MADELINE Administration Nutrition/Malnutrition Assess - Dietary Evaluation Nutrition/Malnutrition Findings: Nutrition Notes Start: 04/14/19 18:38 Freq: Status: Active Protocol: Document 04/14/19 18:38 RM (Rec: 04/14/19 18:45 RM [id number]) Nutrition Notes Need for Assessment generated from: LOS Initial or Follow up Assessment Current Diagnosis Hypertension,Hyperlipidemia Other Pertinent Diagnosis Asthma, Encephalopathy, Acute psychosis Current Diet Regular Labs/Tests Reviewed Pertinent Medications Reviewed Height 5 ft 9 in Weight 72 kg Douglas Body Weight (kg) 65.90 BMI 23.4 Subjective/Other Information Screened for LOS. Pt and pt relatives in room at time of visit. Pt confused at time of visit stating that she needs to go to hospital for interal bleeding and attempting to walk our door. Pt relative stated that pt has not been eating. Percent of energy/protein needs met: 0%/0% Burn Absent Trauma Absent #1 Nutrition Diagnosis Inadequate oral intake Etiology encephalopathy, acute pyschosis As Evidenced by Signs and Symptoms pt relative statement that pt has not been eating Is patient on ventilator? No Is Patient Ambulatory and/or Out of Bed Yes REE-([facility]-ambulatory/OOB) [ 1825.694 [id number]] Calculation [facility] Additional Notes Protein Needs: 58-72g (0.8-1g/ kg) Fluid Needs: 1 ml/kcal Nutrition Intervention Change Diet Order: Continue current Add Supplement/Snack (indicate name/kcal Ensure Enlive 1 daily /protein ) Provides kCal: 350 Provides Protein (gm) 20 Goal #1 Meet at least 75% of calorie and protein needs via PO and ONS intakes Anticipated Discharge Needs: Regular diet Follow-Up By: 04/17/19 Additional Comments Follow for PO and ONS intakes
[2019-04-16 17:46] VITALS: BP 144/67
[2019-04-16] MEDS: SOLU-Medrol 1,000 MG in NACL 0.9% 250ML 250 ML IV SCH (20:23)
--- NOTE | 2019-04-17 16:39 | Discharge Summary ---
Providers - Providers Date of Admission: 04/08/19 17:09 Attending physician: YON GEE MD 04/09/19 10:06 Consult to Physician [CONS] Routine Comment: Consulting Provider: KELVIN DANIEL Physician Instructions: Reason For Exam: fever 04/09/19 15:35 Consult to Physician [CONS] Routine Comment: Consulting Provider: MARLEE LANDRUM Physician Instructions: lupus Reason For Exam: lupus 04/09/19 15:39 Consult to Physician [CONS] Routine Comment: Consulting Provider: JAYDA BRANNON Physician Instructions: lupus cerebitis Reason For Exam: lupus cerebitis [facility] Condition: Stable Hospital course: 48-year-old woman who came to the hospital with altered mental status and confusion, she had fallen and hit her head prior to coming to the hospital Acute encephalopathy. 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 Patient was previously hospitalized at [place] earlier this month. We will attempt to obtain all records from [facility]. Neurology and psych consult appreciated. Psychosis; on zyprexa, neuro consult appreciated, MR was planned but not done prior to transfer to [facility]. She received pulse steroids x2 days with mild improvement with her symptoms Sirs, fever likely due to lupus flare, no evidence of infection SLE; AND, Anti DS DNA Ab increased, check ESR, Urine proein/cr - CRP is 5.1 Encepahlopathy /confusion is due to psychosis - Patient is followed with psych and neurology Lupus cerebritis - Pulse dose Solumedrol Hypertension - Uncontrolled patient refused taking medications Psychosis - Psych is following and patient -: Continue 1013, Melatonin 5 mg PO HS for sleep, and Zyorexa Zydis ODT 10 mg PO HS for psychosis. Discussed possible metabolic side effects of Zyprexa with the patient's family, they verbalized understanding. Asthma; not in exacerbation DVT prophylaxis; on lovenox. her lupus specialist is Dr. Luque (lupus specialist). Spoke to his partner, who was aircraft detail draftsperson Levon Maloney (mobile--[phone]) after which she was transfered to [facility]. F Disposition: DC/TX-02 SHRT-TRM GEN HOSP IP Time spent for discharge: 33 mins Core Measure Documentation - Palliative Care Palliative Care/ Comfort Measures: Not Applicable - Core Measures Any of the following diagnoses?: none Exam - Physical Exam Narrative exam: Not in cardiopulmonary distress. The patient appeared well nourished and normally developed. Vital signs as documented. Head exam is unremarkable. No scleral icterus . Neck is without jugular venous distension, thyromegaly, or carotid bruits. Lungs are clear to auscultation. Cardiac exam reveals regular rate and Rhythm. Abdominal exam reveals normal bowel sounds, no masses, no organomegaly and no aortic enlargement. Extremities are nonedematous and both femoral and pedal pulses are normal. 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 Psych; confused, less paranoid today - Constitutional Vitals: Temp Pulse Resp BP Pulse Ox 98.3 F 85 28 H 144/67 99 04/16/19 17:20 04/16/19 17:20 04/16/19 17:20 04/16/19 17:20 04/16/19 17:20 Plan Follow up with: RYAN CARSON MD [Primary Care Provider] - 3-5 Days
== END 2019-04-16 20:00 | disposition short-term general hospital (02) | DRG 546 ==
LOC: EEVIPCON 18:41 → ED 18:41 → 3A 04-08 17:09
PROVIDERS: ADMIT Internal Medicine; ATTEND Internal Medicine
DX: M32.19 Other organ or system involvement in systemic lupus erythematosus (principal); G93.40 Encephalopathy, unspecified; R65.10 Systemic inflammatory response syndrome (SIRS) of non-infectious origin without acute organ dysfunction; F29 Unspecified psychosis not due to a substance or known physiological condition; M32.9 Systemic lupus erythematosus, unspecified; J45.909 Unspecified asthma, uncomplicated; I11.0 Hypertensive heart disease with heart failure; I50.9 Heart failure, unspecified; I48.91 Unspecified atrial fibrillation; Z82.49 Family history of ischemic heart disease and other diseases of the circulatory system; Z88.5 Allergy status to narcotic agent; Z91.011 Allergy to milk products; Z79.899 Other long term (current) drug therapy
CPT/HCPCS: 36415; 70450; 71045; 80048; 80053; 80164; 80307; 80320; 81001; 82140; 82550; 82570; 82607; 82747; 82962; 84156; 84439; 84443; 84484; 85007; 85025; 85613; 85652; 86038; 86140; 86225; 87040; 87076; 87086; 87186; 87806; 93005; 93010; G0378; G0480; J0360; J0696; J1630; J1650; J2405; J2930; J3246; J7040; J7050; J7512

== ENCOUNTER 2019-11-24 09:18 | Outpatient (CLI) | payer BC ==
--- NOTE | 2019-11-27 08:17 | Mammography Report ---
DIGITAL SCREENING MAMMOGRAM WITH CAD, 11/24/2019 INDICATION: Routine screening mammography. TECHNIQUE: Digital bilateral 2D mammography was obtained in the craniocaudal and mediolateral obliq ue projections. This examination was interpreted with the benefit of Computer-Aided Detection analysi s. COMPARISON: 04/16/2015 FINDINGS: Breast Density: The breasts are heterogeneously dense, which may obscure small masses. A right asymmetry on the MLO view requires additional imaging. No architectural distortion or suspici ous calcifications of the right breast. There is no evidence of dominant mass, suspicious calcificati ons or architectural distortion in the left breast. IMPRESSION: Right asymmetry requiring additional imaging. Recommend recall for a right MLO spot compr ession view and right breast ultrasound if needed. Follow up recommendation: Special View: Spot Category 0: Incomplete. Needs additional imaging evaluation and/or prior mammograms for comparison. A "normal" or negative report should not discourage follow up or biopsy of a clinically significant f inding. A written summary of these findings will be mailed to the patient. The patient will be entered into a mammography reporting system which will generate a reminder letter for the patient's next appointmen t at the appropriate interval. The [employer] recommends yearly mammograms starting at age 40 and continuing as l jonathan as a woman is in good health. Breast MRI is recommended for women with an approximate 20-25% or greater lifetime risk of breast cancer, including women with a strong family history of breast or ova dyllan cancer or who have been treated for Hodgkin's disease. Signer Name: Bunny Irene MD Signed: 11/27/2019 8:13 AM Workstation Name: [id number]
== END 2019-11-24 09:19 | disposition home or self-care (01) ==
LOC: SPVWC 09:18
PROVIDERS: ATTEND Internal Medicine
DX: Z12.31 Encounter for screening mammogram for malignant neoplasm of breast (principal)
CPT/HCPCS: 77067

== ENCOUNTER 2019-12-12 12:50 | Outpatient (CLI) | payer BC ==
--- NOTE | 2019-12-12 13:36 | Mammography Report ---
DIGITAL DIAGNOSTIC MAMMOGRAM WITH CAD, 12/12/2019 INDICATION: Recall for asymmetry. ABNORMAL MAMMOGRAM TECHNIQUE: Digital right mammographic imaging was performed. This examination was interpreted with the benefit of Computer-aided Detection analysis. COMPARISON: 11/24/2019 FINDINGS: Breast Density: The breasts are heterogeneously dense, which may obscure small masses. Lateral and spot compression MLO views were performed and are negative. Satisfactory effacement of as ymmetry with spot compression. IMPRESSION: No mammographic evidence of malignancy. Follow up recommendation: Routine yearly BI-RADS Category 1: Negative. A "normal" or negative report should not discourage follow up or biopsy of a clinically significant f inding. A written summary of these findings will be mailed to the patient. The patient will be entered into a mammography reporting system which will generate a reminder letter for the patient's next appointmen t at the appropriate interval. According to the [employer], yearly mammograms are recommended starting at age 40 and continuing as long as a woman is in good health. Breast MRI is recommended for women with an jose roximately 20-25% or greater lifetime risk of breast cancer, including women with a strong family his tory of breast or ovarian cancer and women who have been treated for Hodgkin's disease. Signer Name: Bunny Irene MD Signed: 12/12/2019 1:32 PM Workstation Name: [id number]
== END 2019-12-12 12:51 | disposition home or self-care (01) ==
LOC: SPVWC 12:50
PROVIDERS: ATTEND Internal Medicine
DX: R92.2 Inconclusive mammogram (principal)

== ENCOUNTER 2020-11-28 08:13 | Outpatient (CLI) | payer BC ==
--- NOTE | 2020-11-28 10:38 | Mammography Report ---
DIGITAL SCREENING MAMMOGRAM WITH CAD, 11/28/2020 CLINICAL INFORMATION / INDICATION: Routine screening mammography. TECHNIQUE: Digital bilateral 2D mammography was obtained in the craniocaudal and mediolateral obliqu e projections. This examination was interpreted with the benefit of Computer-Aided Detection analysis . COMPARISON: 12/12/2019, 11/24/2019, 04/16/2015 FINDINGS: Breast Density: The breasts are heterogeneously dense, which may obscure small masses. No dominant mass, suspicious calcifications, or architectural distortion in either breast. IMPRESSION: No mammographic evidence of malignancy. Follow up recommendation: Routine yearly BI-RADS Category 1: Negative. A "normal" or negative report should not discourage follow up or biopsy of a clinically significant f inding. A written summary of these findings will be mailed to the patient. The patient will be entered into a mammography reporting system which will generate a reminder letter for the patient's next appointmen t at the appropriate interval. The [employer] recommends yearly mammograms starting at age 40 and continuing as l jonathan as a woman is in good health. Breast MRI is recommended for women with an approximate 20-25% or greater lifetime risk of breast cancer, including women with a strong family history of breast or ova dyllan cancer or who have been treated for Hodgkin's disease. Signer Name: Berny Morris MD Signed: 11/28/2020 10:33 AM Workstation Name: [id number]
== END 2020-11-28 08:14 | disposition home or self-care (01) ==
LOC: SPVWC 08:13
PROVIDERS: ATTEND Internal Medicine
DX: Z12.31 Encounter for screening mammogram for malignant neoplasm of breast (principal)
CPT/HCPCS: 77067

== ENCOUNTER 2021-12-03 08:11 | Outpatient (CLI) | payer BC ==
--- NOTE | 2021-12-03 17:10 | Mammography Report ---
DIGITAL SCREENING MAMMOGRAM WITH CAD, 12/03/2021 CLINICAL INFORMATION / INDICATION: Routine screening mammography. SCREENING MAMMO Z12.31 TECHNIQUE: Digital bilateral 2D mammography was obtained in the craniocaudal and mediolateral obliqu e projections. This examination was interpreted with the benefit of Computer-Aided Detection analysis . COMPARISON: 11/28/20, 12/12/19, 11/24/19 FINDINGS: Breast Density: The breasts are heterogeneously dense, which may obscure small masses. No dominant mass, suspicious calcifications, or architectural distortion in either breast. IMPRESSION: No mammographic evidence of malignancy. No significant change. Follow up recommendation: Routine yearly BI-RADS Category 1: NEGATIVE A "normal" or negative report should not discourage follow up or biopsy of a clinically significant f inding. A written summary of these findings will be mailed to the patient. The patient will be entered into a mammography reporting system which will generate a reminder letter for the patient's next appointmen t at the appropriate interval. The [employer] recommends yearly mammograms starting at age 40 and continuing as l jonathan as a woman is in good health. Breast MRI is recommended for women with an approximate 20-25% or greater lifetime risk of breast cancer, including women with a strong family history of breast or ova dyllan cancer or who have been treated for Hodgkin's disease. Signer Name: Kait Posey MD Signed: 12/03/2021 5:06 PM Workstation Name: [id number]
== END 2021-12-03 08:12 | disposition home or self-care (01) ==
LOC: SPVWC 08:11
PROVIDERS: ATTEND Internal Medicine
DX: Z12.31 Encounter for screening mammogram for malignant neoplasm of breast (principal)
CPT/HCPCS: 77067